=== PATIENT | male | born 1935 | race Caucasian/White ===

== ENCOUNTER → 2017-01-25 | Outpatient (REF) | payer MEDICARE ==
[~2017-01-25] MED LIST: /LINE60TA OR; /ONDA4TA OR; /PANT40TA OR; /ROPI1TA PO; /TAMS4CA PO; /WARF5TA OR; ACET500C; ACET65TA PR; ASPI81TA45 OR; ATEN25TA OR; BABY81CH OR; BIMA01SOL OU; BISA10SU2 RE; BISA5TA OR; CEPACOL PO; CIPRO PO; COLA100C2 OR; COUMADIN; FISH1000 OR; FLAG500T PO; FLEEENE4 PR; FLEXERIL OR; FURO40TA2 OR; HYDROCODONE; IMDU30TA PO; KLON0.5T OR; KLON1TAB OR; KLOR20TA PO; LASI40TA OR; LIPI10TA OR; LIPI1TAB2 OR; LISI10TA4 OR; MILKSUS OR; MIRAPEX PO; MULTIVIT PO; NEUR300C OR; NITR4TASL SL; OMEP20CA3 PO; PERC5TAB8 OR; PERC7.5T8 OR; PREG100CA OR; PRIN5TAB OR; PROS5TAB OR; PROSCAR OR; PROV100T2 PO; QUESTRAN PO; SENN8.6T5 OR; SENO8.6T10 PO; SPIR25TA2 OR; SPIR25TA2 PO; TOPR25TA OR; TRAM50TA2 OR; TYLE325T5 PO; ULTR50TA PO; VICO5TAB OR; VOLT1GEL EX; ZOCO5TAB PO; [UNRECOGNIZED DRUG - CODE] PO; [UNRECOGNIZED DRUG - OTHER] OP; [UNRECOGNIZED DRUG - OTHER] OU; [UNRECOGNIZED DRUG - OTHER] OU; fish oil PO; mirapex OR; mirapex PO; mucinex PO
[2017-01-25 17:10] LABS: ALBUMIN 3.7 GM/DL (3.2-5.2); ALKALINE PHOSPHATASE 88 U/L (45-117); ALT/SGPT 22 U/L (12-78); ANION GAP 6 MEQ/L (8-16); AST/SGOT 19 U/L (15-37); BILIRUBIN,TOTAL 0.7 MG/DL (0.2-1.0); BLOOD UREA NITROGEN 18 MG/DL (7-18); CALCIUM LEVEL 9.1 MG/DL (8.8-10.2); CARBON DIOXIDE LEVEL 30 MEQ/L (21-32); CHLORIDE LEVEL 102 MEQ/L (98-107); CHOLESTEROL LEVEL 131 MG/DL (<200); CREATININE FOR GFR 1.14 MG/DL (0.70-1.30); GLOMERULAR FILTRATION RATE > 60.0 (>35); GLUCOSE, FASTING 83 MG/DL (83-110); POTASSIUM SERUM 4.7 MEQ/L (3.5-5.1); SODIUM LEVEL 138 MEQ/L (136-145); TOTAL PROTEIN 7.4 GM/DL (6.4-8.2); TRIGLYCERIDES LEVEL 157 MG/DL (<150)
[2017-01-25 18:02] LABS: MEAN CORPUSCULAR HEMOGLOBIN 32.7 pg (27.0-33.0); MEAN CORPUSCULAR HGB CONC 33.9 g/dl (32.0-36.5); MEAN CORPUSCULAR VOLUME 96.6 fl (80.0-96.0); RED CELL DISTRIBUTION WIDTH 13.5 % (11.5-14.5); WHITE BLOOD COUNT 6.8 K/mm3 (4.0-10.0)
== END ==
LOC: M SFHCPLAZ 14:13
PROVIDERS: ATTEND Nurse Practitioner Adult Health
DX: I48.91 Unspecified atrial fibrillation (principal); E78.00 Pure hypercholesterolemia, unspecified
CPT/HCPCS: 36415; 80053; 80061; 85027; G0463

== ENCOUNTER 2017-03-01 17:49 | Emergency (ER) | payer MEDICARE ==
[2017-03-01] MEDS ORDERED: OMEP20CA3 (18:01)
[2017-03-01] MEDS ORDERED: TAMSULOSIN (18:01)
[2017-03-01] MEDS ORDERED: FURO40TA2 (18:01)
[2017-03-01] MEDS ORDERED: TRAM50TA2 (18:01)
[2017-03-01] MEDS ORDERED: CLON0.5T (18:01)
[2017-03-01] MEDS ORDERED: SPIR25TA2 (18:01)
[2017-03-01] MEDS ORDERED: GABA-279 (18:01)
[2017-03-01] MEDS ORDERED: ATOR40TA (18:01)
[2017-03-01] MEDS ORDERED: FINA5TAB2 (18:01)
[2017-03-01] MEDS ORDERED: ISOS30TA4 (18:01)
--- NOTE | 2017-03-01 18:34 | REP ---
Clinical: Altered mental status. Comparison: 08/01/2013. Findings: Age-related atrophy and microvascular ischemic changes along with periventricular leukomalacia is appreciated. There is evidence for encephalomalacia involving significant portions of the right cerebral hemisphere similar to prior examination and compatible with old infarction. No acute intracranial hemorrhage or mass/mass effect appreciated. No extra-axial fluid collections are identified. No evidence for hydrocephalus. Calvarium is intact. Evidence of prior right frontal craniotomy noted. Sinuses and mastoid air cells are clear. Impression: 1. Significant right cerebral encephalomalacia consistent with prior infarction and associated prior craniotomy. 2. Age-related atrophy and microvascular ischemic changes with periventricular leukomalacia. 3. No mass/mass effect, or intracranial hemorrhage. Signed by Jose Ferrara MD 03/01/2017 06:25 P
[2017-03-01 18:45] LABS: BASO % 0.4 % (0.0-1.0); EOS # 0.2 K/mm3 (0.0-0.50); EOS % 2.8 % (0.0-3.0); LARGE UNSTAINED CELL # 0.1 K/mm3 (0.0-0.4); LARGE UNSTAINED CELL % 1.4 % (0.0-4.0); LYMPH # 1.1 K/mm3 (1.5-4.5); LYMPH % 15.2 % (24.0-44.0); MEAN CORPUSCULAR HEMOGLOBIN 33.7 pg (27.0-33.0); MEAN CORPUSCULAR VOLUME 98.9 fl (80.0-96.0); MONO # 0.3 K/mm3 (0.0-0.8); NEUTROPHILS # 5.4 K/mm3 (1.8-7.7); NEUTROPHILS % 76.1 % (36.0-66.0); PLATELET COUNT, AUTOMATED 209 k/mm3 (150-450); RED CELL DISTRIBUTION WIDTH 13.2 % (11.5-14.5)
--- NOTE | 2017-03-01 18:55 | REP ---
Clinical: Cerebrovascular accident . Comparison: 02/15/2014 . Findings: The mediastinum and cardiac silhouette are stable and there is evidence for prior sternotomy and aortic valve replacement. The lung san are clear without acute consolidation, effusion, or pneumothorax. Skeletal structures are intact. Impression: No acute cardiopulmonary process. Signed by Jose Ferrara MD 03/01/2017 06:47 P
[2017-03-01 19:04] LABS: INR 1.1
[2017-03-01 19:10] LABS: ANION GAP 9 MEQ/L (8-16); BLOOD UREA NITROGEN 19 MG/DL (7-18); CALCIUM LEVEL 8.8 MG/DL (8.8-10.2); CARBON DIOXIDE LEVEL 27 MEQ/L (21-32); CHLORIDE LEVEL 102 MEQ/L (98-107); CREATININE FOR GFR 1.09 MG/DL (0.70-1.30); GLOMERULAR FILTRATION RATE > 60.0 (>35); GLUCOSE, FASTING 86 MG/DL (83-110); POTASSIUM SERUM 4.2 MEQ/L (3.5-5.1); SODIUM LEVEL 138 MEQ/L (136-145)
[2017-03-02 00:02] VITALS: BP 120/65
--- NOTE | 2017-03-02 19:13 | ECGEPIP ---
Stationary ECG Study [facility] - ED Test Date: 2017-03-01 Pat Name: SHIVA PHAN Department: Room: - Gender: M Statistical Typist: ETHAN : 1935 Requested By: HILDA Philip Order Number: [id number] Reading MD: Jaya Baptiste Measurements Intervals [place] Rate: 77 P: [place]: 0 QRS: -68 QRSD: 108 T: 30 QT: 410 QTc: 465 Interpretive Statements SINUS RHYTHM WITH 1ST DEGREE AV BLOCK LAD PRWP SIMILAR TO 02/17/14 Electronically Signed On 03-02-2017 19:13:13 EDT by Jaya Baptiste
== END 2017-03-02 00:12 | disposition home or self-care (01) ==
LOC: M ED 18:36
DX: R53.1 Weakness (principal); Z86.73 Personal history of transient ischemic attack (TIA), and cerebral infarction without residual deficits; I11.0 Hypertensive heart disease with heart failure; E78.5 Hyperlipidemia, unspecified; K21.9 Gastro-esophageal reflux disease without esophagitis; G89.29 Other chronic pain; G47.00 Insomnia, unspecified; G25.81 Restless legs syndrome; Z87.891 Personal history of nicotine dependence; Z88.8 Allergy status to other drugs, medicaments and biological substances; Z95.2 Presence of prosthetic heart valve

== ENCOUNTER → 2017-07-31 | Outpatient (REF) | payer MEDICARE ==
[~2017-07-31] MED LIST changes: +ATOR40TA75; +CLON0.5T; +FINA5TAB2; +FURO40TA2; +GABA-279; +ISOS30TA4; +OMEP20CA3; +SPIR25TA2; +TAMSULOSIN; +TRAM50TA2; -ULTR50TA PO; +ULTR50TA8 PO
[2017-07-31 13:04] LABS: MEAN CORPUSCULAR HEMOGLOBIN 32.4 pg (27.0-33.0); MEAN CORPUSCULAR HGB CONC 33.3 g/dl (32.0-36.5); MEAN CORPUSCULAR VOLUME 97.6 fl (80.0-96.0); RED CELL DISTRIBUTION WIDTH 13.8 % (11.5-14.5); WHITE BLOOD COUNT 8.7 10^3/uL (4.0-10.0)
[2017-07-31 13:17] LABS: ALBUMIN 3.8 GM/DL (3.2-5.2); ALBUMIN/GLOBULIN RATIO 1.06 (1.00-1.93); ALKALINE PHOSPHATASE 85 U/L (45-117); ALT/SGPT 16 U/L (12-78); ANION GAP 6 MEQ/L (8-16); AST/SGOT 14 U/L (15-37); BILIRUBIN,TOTAL 1.1 MG/DL (0.2-1.0); BLOOD UREA NITROGEN 20 MG/DL (7-18); CALCIUM LEVEL 8.7 MG/DL (8.8-10.2); CARBON DIOXIDE LEVEL 30 MEQ/L (21-32); CHLORIDE LEVEL 99 MEQ/L (98-107); CHOLESTEROL LEVEL 108 MG/DL (<200); CREATININE FOR GFR 1.17 MG/DL (0.70-1.30); GLOMERULAR FILTRATION RATE > 60.0 (>35); GLUCOSE, FASTING 97 MG/DL (83-110); POTASSIUM SERUM 4.2 MEQ/L (3.5-5.1); SODIUM LEVEL 135 MEQ/L (136-145); TOTAL PROTEIN 7.4 GM/DL (6.4-8.2); TRIGLYCERIDES LEVEL 101 MG/DL (<150)
== END ==
LOC: M SFHCPLAZ 10:47
PROVIDERS: ATTEND Nurse Practitioner Adult Health
DX: Z00.00 Encounter for general adult medical examination without abnormal findings (principal); E78.2 Mixed hyperlipidemia

== ENCOUNTER → 2017-08-04 | Outpatient (CLI) | payer MEDICARE ==
--- NOTE | 2017-08-04 11:34 | REP ---
ULTRASOUND ABDOMINAL AORTA: Real-time sonographic evaluation of the abdominal aorta performed. Maximum AP diameter of the abdominal aorta proximally is 2.5 cm, at the level of the renal artery is 3.9 cm, mid aspect 3.1 cm and distally 3.0 cm. Right common iliac artery measures 9 x 11 mm and left 11 x 8 mm. There is not a significant change when compared with the prior study of 07/30/2015. 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 Signed by Lukas Caraballo MD 08/07/2017 09:48 A
== END ==
LOC: M RAD 09:52
PROVIDERS: ATTEND Nurse Practitioner Adult Health
DX: I71.4 Abdominal aortic aneurysm, without rupture (principal)

== ENCOUNTER → 2018-07-16 | Outpatient (REF) | payer MEDICARE ==
[2018-07-16 18:05] LABS: HEMATOCRIT 41.7 % (42.0-52.0); HEMOGLOBIN 13.9 g/dl (13.5-17.5); MEAN CORPUSCULAR HEMOGLOBIN 32.9 pg (27.0-33.0); MEAN CORPUSCULAR HGB CONC 33.3 g/dl (32.0-36.5); MEAN CORPUSCULAR VOLUME 98.8 fl (80.0-96.0); PLATELET COUNT, AUTOMATED 201 10^3/uL (150-450); RED BLOOD COUNT 4.22 10^6/uL (4.30-6.10); RED CELL DISTRIBUTION WIDTH 14.2 % (11.5-14.5); WHITE BLOOD COUNT 7.3 10^3/uL (4.0-10.0)
[2018-07-16 18:26] LABS: ALBUMIN 3.9 GM/DL (3.2-5.2); ALBUMIN/GLOBULIN RATIO 1.05 (1.00-1.93); ALKALINE PHOSPHATASE 77 U/L (45-117); ALT/SGPT 16 U/L (12-78); ANION GAP 7 MEQ/L (8-16); AST/SGOT 17 U/L (7-37); BILIRUBIN,TOTAL 0.7 MG/DL (0.2-1.0); BLOOD UREA NITROGEN 16 MG/DL (7-18); CALCIUM LEVEL 8.5 MG/DL (8.8-10.2); CARBON DIOXIDE LEVEL 30 MEQ/L (21-32); CHLORIDE LEVEL 101 MEQ/L (98-107); CHOLESTEROL LEVEL 117 MG/DL (<200); CREATININE FOR GFR 1.18 MG/DL (0.70-1.30); GLOMERULAR FILTRATION RATE > 60.0 (>35); GLUCOSE, FASTING 97 MG/DL (70-100); HDL CHOLESTEROL 36 MG/DL (>40); LDL CHOLESTEROL 43 MG/DL (<100); NON-HDL-C 81 MG/DL; POTASSIUM SERUM 4.4 MEQ/L (3.5-5.1); SODIUM LEVEL 138 MEQ/L (136-145); TOTAL PROTEIN 7.6 GM/DL (6.4-8.2); TRIGLYCERIDES LEVEL 189 MG/DL (<150)
== END ==
LOC: M LABNEURO 15:04
DX: I48.91 Unspecified atrial fibrillation (principal); E78.2 Mixed hyperlipidemia; I50.32 Chronic diastolic (congestive) heart failure
CPT/HCPCS: 80053

== ENCOUNTER → 2019-03-19 | Outpatient (REF) | payer MEDICARE ==
[~2019-03-19] MED LIST changes: -/LINE60TA OR; -/ONDA4TA OR; -/PANT40TA OR; -/ROPI1TA PO; -/TAMS4CA PO; -/WARF5TA OR; -CLON0.5T; +CLON0.5T8; +COUM1TAB17 OR; +FLOM0.4C39 PO; +GABA-1171; -GABA-279; +ONDA-1 OR; +PROT1TAB2 OR; +REQU1TAB16 PO; +SPIR-10; -SPIR25TA2; +ZYVO100T OR
[2019-03-19 16:00] LABS: ALBUMIN 4.1 GM/DL (3.2-5.2); ALT/SGPT 16 U/L (12-78); BILIRUBIN,TOTAL 0.7 MG/DL (0.2-1.0); BLOOD UREA NITROGEN 16 MG/DL (7-18); CALCIUM LEVEL 9.2 MG/DL (8.8-10.2); CARBON DIOXIDE LEVEL 30 MEQ/L (21-32); CHLORIDE LEVEL 100 MEQ/L (98-107); CREATININE FOR GFR 1.19 MG/DL (0.70-1.30); GLOMERULAR FILTRATION RATE > 60.0 (>35); GLUCOSE, FASTING 94 MG/DL (70-100); SODIUM LEVEL 137 MEQ/L (136-145); TOTAL PROTEIN 7.8 GM/DL (6.4-8.2)
== END ==
LOC: M SFHCPLAZ 14:24
PROVIDERS: ATTEND Nurse Practitioner Adult Health
DX: I48.91 Unspecified atrial fibrillation (principal)
CPT/HCPCS: 36415; 80053; G0463

== ENCOUNTER 2019-05-01 10:38 | Inpatient (IN) | payer MEDICARE ==
[~2019-05-01] VITALS: Ht 200.7 cm; Wt 69.5 kg
[~2019-05-01 10:38] MED LIST changes: -ATOR40TA75; +ATOR40TA75 PO; -CLON0.5T8; +CLON0.5T8 PO; -FINA5TAB2; +FINA5TAB2 PO; -FURO40TA2; +FURO40TA2 PO; -GABA-1171; +GABA-1171 PO; -ISOS30TA4; +ISOS30TA4 PO; -OMEP20CA3; +OMEP20CA4 PO; -SPIR-10; +SPIR-10 PO
[2019-05-01 11:16] LABS: VENOUS BASE EXCESS -3.2 (-2.0-2.0); VENOUS HCO3 24.3 MEQ/L (23.0-27.0); VENOUS O2 SATURATION 76.5 % (60.0-80.0); VENOUS PARTIAL PRESSURE CO2 53.1 mmHg (38.0-50.0); VENOUS PARTIAL PRESSURE O2 44.9 mmHg (30.0-50.0); VENOUS PH 7.278 UNITS (7.330-7.430); VENOUS STANDARD HCO3 21.4 MEQ/L; VENOUS TOTAL CO2 25.9 MEQ/L (24.0-28.0)
[2019-05-01] MEDS ORDERED: TAMS1CAP17 PO (11:20)
[2019-05-01 11:21] LABS: BASO % 0.2 % (0.0-1.0); EOS % 0.3 % (0.0-3.0); HEMATOCRIT 39.4 % (42.0-52.0); HEMOGLOBIN 13.1 g/dl (13.5-17.5); LYMPH # 0.6 10^3/uL (1.5-4.5); LYMPH % 5.1 % (24.0-44.0); MEAN CORPUSCULAR HEMOGLOBIN 32.8 pg (27.0-33.0); MEAN CORPUSCULAR HGB CONC 33.2 g/dl (32.0-36.5); MEAN CORPUSCULAR VOLUME 98.7 fl (80.0-96.0); MONO # 0.3 10^3/uL (0.0-0.8); MONO % 2.8 % (0.0-5.0); NEUTROPHILS # 10.9 10^3/uL (1.8-7.7); PLATELET COUNT, AUTOMATED 172 10^3/uL (150-450); RED BLOOD COUNT 3.99 10^6/uL (4.30-6.10); WHITE BLOOD COUNT 11.9 10^3/uL (4.0-10.0)
[2019-05-01] MEDS ORDERED: ECOT81TA5 PO (11:35)
[2019-05-01] MEDS ORDERED: ACET650T15 PO (11:35)
[2019-05-01] MEDS ORDERED: GABA-1171 PO (11:35)
[2019-05-01 11:53] LABS: ALBUMIN 3.8 GM/DL (3.2-5.2); BILIRUBIN,DIRECT 0.3 MG/DL (0.0-0.2); BILIRUBIN,TOTAL 0.7 MG/DL (0.2-1.0); CALCIUM LEVEL 8.7 MG/DL (8.8-10.2); CK-MB VALUE MASS 2.7 NG/ML (<3.6); CREATININE FOR GFR 1.25 MG/DL (0.70-1.30); GLOMERULAR FILTRATION RATE 58.4 (>35); MB/CK RELATIVE INDEX 2.55 (< OR =4); POTASSIUM SERUM 3.8 MEQ/L (3.5-5.1); THYROID STIMULATING HORMONE 2.7 uIU/ML (0.358-3.740); THYROXINE (T4) 6.9 UG/DL (4.5-12.0); TOTAL PROTEIN 7.4 GM/DL (6.4-8.2); TROPONIN I 0.15 NG/ML (< 0.10)
[2019-05-01] MEDS ORDERED: ZOSYN 3.375 GM VIAL (J2543) As Ordered ONE (12:29)
--- NOTE | 2019-05-01 13:02 | REP ---
CHEST, PORTABLE: Two AP portable views of the chest are performed. There is slight cardiomegaly. There is diffuse right lung infiltrate, more so in the right lung base. There is mild left base interstitial infiltrate. There is mild calcification of the thoracic aorta. There is a prosthetic heart valve. Multiple sternal wires present. Electronically Signed by Lukas Caraballo MD 05/04/2019 06:26 P
[2019-05-01] MEDS: PIPERACILLIN/TAZOBACTAM SOD 3.375 GM in D5W MINI-BAG PLUS 50 ML IV SCH ×2 (13:55→20:39)
[2019-05-01] MEDS ORDERED: ACETAMINOPHEN 325 MG TAB PO ONE (14:15)
--- NOTE | 2019-05-01 15:12 | HPEPDOC ---
[facility] Medical History & Physical Date of Admission May 01, 2019 Date of Service: May 01, 2019 History and Physical CHIEF COMPLAINT: weakness, deconditioning HISTORY OF PRESENT ILLNESS: Pt is 83 y/o M with PMHx listed as below was brought to ED by her daughter due to cough, shortness of breath, malaise and weakness. Upon my encounter pt is awake and alert his memory and speech are coherent however he appears severely fatigued and weak. Daughter is at bedside, she states that her father lives by himself about 15 miles away from her. Every other day pt daughter and daughter in law visit him and help him with shopping and cooking. Pt's is elderly and lives in assisted living facility. He has been coughing for the past few days with sputum production. Denies any fever or chills. He states he feels very weak and tired. Denies any chest pain, palpitations or syncope. Denies change in urination or BM. Denies headache, visual changes or abdominal pain. ED Course: Pt was initially hypoxic at 88-90 which responded to 2lit NC. He was tachypneic however able to speak in full sentences. His inspiration and expiration sounded with copious amount of secretions. SBP in range of 110-120. CXR reveals bilat infiltrates. Pt received one dose of Zosyn and bronchodilator treatments. Trop mildly elevated. ProBNP 2000, WBC 11.9 with left shift. U/A negative. Lactate 2.3. PAST MEDICAL HISTORY: 1-Atrial Fibrillation/Flutter not on AC due to ICH 2-Hx of Intracranial Hemorrhage 3-HTN 4-HLD 5-Hx of C. 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 REVIEW OF SYSTEMS: 10 points completed negative except mentioned in HPI HOME MEDICATIONS: Please see below. PHYSICAL EXAMINATION: VITAL SIGNS: GENERAL APPEARANCE: Pt is frail elderly gentleman appears severely fatigued and weak however memory and speech coherent HEENT: EOMI JACKSON neck supple no JVD no LAP mucus membranes moist CARDIOVASCULAR: S1 S2 regular rate and rhythm LUNGS: bilat good air entry extensive rales bilateral ABDOMEN: soft not tender not distended MUSCULOSKELETAL: no joint deformity EXTREMITIES: no edema no cyanosis no tenderness NEUROLOGICAL: motor sensory grossly intact PSYCHIATRIC: mood affect appropriate LABORATORY DATA: See below. CHEST, PORTABLE: Two AP portable views of the chest are performed. There is slight cardiomegaly. There is diffuse right lung infiltrate, more so in the right lung base. There is mild left base interstitial infiltrate. There is mild calcification of the thoracic aorta. There is a prosthetic heart valve. Multiple sternal wires present. MICROBIOLOGY: Please see below. A/P 1-Acute hypoxic respiratory failure sec to bilat pneumonia O2 via NC 2lit maintain O2 sats >90 Can give venti mask and nonrebreather in case requiring more oxygenation support ABG 2-Acute bronchopneumonia bilateral likely aspiration pneumonia need to cover oral cavity anaerobes Broad spectrum antbiotics Zosyn, Vancomycin Hx of MRSA pneumonia Lactate 2.3 monitor clinical response, WBC, lactate blood cultures sent sputum cultures sent 3-Elevated Troponin in view of prior CAD with CABG and acute illness likely demand ischemia cont monitor closely 4-Aspiration precautions 5-Elevate head of bed Cont home meds for chronic conditions. DVT prophylaxis mechanical PT/OT once clinically optimized SW/CM possible placement Disposition: expect complicated course of stay due to extensive past medical history and aspiration pneumonia in elderly patient. Vital Signs Vital Signs Date Time Temp Pulse Resp B/P (MAP) Pulse Ox O2 Delivery O2 Flow Rate FiO2 05/01/19 12:45 74 22 120/56 (77) 88 Nasal Cannula 4.0 05/01/19 10:57 96.3 Laboratory Data Labs 24H Laboratory Tests 2 05/01/19 11:03: Immature Granulocyte % (Auto) 0.6, White Blood Count 11.9H, Red Blood Count 3.99L, Hemoglobin 13.1L, Hematocrit 39.4L, Mean Corpuscular Volume 98.7H, Mean Corpuscular Hemoglobin 32.8, Mean Corpuscular Hemoglobin Concent 33.2, Red Cell Distribution Width 13.4, Platelet Count 172, Neutrophils (%) (Auto) 91.0H, Lymphocytes (%) (Auto) 5.1L, Monocytes (%) (Auto) 2.8, Eosinophils (%) (Auto) 0.3, Basophils (%) (Auto) 0.2, Neutrophils # (Auto) 10.9H, Lymphocytes # (Auto) 0.6L, Monocytes # (Auto) 0.3, Eosinophils # (Auto) 0.0, Basophils # (Auto) 0.0, Nucleated Red Blood Cells % (auto) 0.0, Anion Gap 7L, Glomerular Filtration Rate 58.4, Lactic Acid Level 2.3*H, Calcium Level 8.7L, Aspartate Amino Transf (AST/SGOT) 15, Alanine Aminotransferase (ALT/SGPT) 18, Alkaline Phosphatase 73, Total Bilirubin 0.7, Direct Bilirubin 0.3H, Total Creatine Kinase 106, Creatine Kinase MB 2.7, Creatine Kinase MB Relative Index 2.55, Troponin I 0.15H, NW-Hcq-Q-Type Natriuretic Peptide 2898H, Total Protein 7.4, Albumin 3.8, Albumin/Globulin Ratio 1.06, Thyroid Stimulating Hormone (TSH) 2.700, Thyroxine (T4) 6.9 05/01/19 11:06: Blood Gas Bicarbonate Standard 21.4, Venous Blood pH 7.278L, Venous Blood Partial Pressure CO2 53.1H, Venous Blood Partial Pressure O2 44.9, Venous Blood Total Carbon Dioxide 25.9, Venous Blood HCO3 24.3, Venous Blood Oxygen Sat uration 76.5, Venous Blood Base Excess -3.2L CBC/BMP Laboratory Tests 05/01/19 11:03 Red Blood Count 3.99 L, Mean Corpuscular Volume 98.7 H, Mean Corpuscular Hemoglobin 32.8, Mean Corpuscular Hemoglobin Concent 33.2, Red Cell Distribution Width 13.4, Neutrophils (%) (Auto) 91.0 H, Lymphocytes (%) (Auto) 5.1 L, Monocytes (%) (Auto) 2.8, Eosinophils (%) (Auto) 0.3, Basophils (%) (Auto) 0.2, Neutrophils # (Auto) 10.9 H, Lymphocytes # (Auto) 0.6 L, Monocytes # (Auto) 0.3, Eosinophils # (Auto) 0.0, Basophils # (Auto) 0.0 Microbiology Microbiology 05/01/19 Blood Culture, Received Pending 05/01/19 Blood Culture, Received Pending Home Medications Scheduled Aspirin (Ecotrin) 81 Mg Tablet.dr, 81 MG PO DAILY Atorvastatin Calcium (Atorvastatin Calcium) 40 Mg Tab, 40 MG PO QHS Finasteride (Finasteride) 5 Mg Tab, 5 MG PO DAILY Furosemide (Furosemide) 40 Mg Tab, 40 MG PO DAILY Gabapentin (Gabapentin) 100 Mg Cap, 100 MG PO DAILY Gabapentin (Gabapentin) 100 Mg Capsule, 200 MG PO QHS Isosorbide Mononitrate (Isosorbide Mononitrate ER) 30 Mg Tab, 30 MG PO DAILY Omeprazole (Omeprazole) 20 Mg Cap, 20 MG PO DAILY Spironolactone (Spironolactone) 25 Mg Tab, 25 MG PO DAILY Tamsulosin Hcl (Tamsulosin HCl) 0.4 Mg Capsule, 0.4 MG PO QHS Scheduled PRN Acetaminophen (Acetaminophen ER) 650 Mg Tablet.er, 650 MG PO Q4H PRN for PAIN Clonazepam (Clonazepam) 0.5 Mg Tab, 0.5 MG PO BID PRN for ANXIETY Allergies Coded Allergies: lovastatin (Verified Allergy, Intermediate, hives, 05/01/19) A-FIB/CHADSVASC A-FIB History Current/History of A-Fib/PAF?: Yes Current PO Anticoag Therapy: No (Hx of ICH SAH) RIANA MARTINEZ MD May 01, 2019 15:12
[2019-05-01] MEDS ORDERED: FUROSEMIDE 100 MG/10 ML VIAL (J1940) IV ONE (16:00)
[2019-05-01] MEDS: ASPIRIN 81 MG ENTERIC TAB PO SCH (16:15)
[2019-05-01] MEDS ORDERED: VANCOMYCIN HCL 1,000 MG, VIAL MATE ADAPTER 1 EACH in D5W 250 ML IV ONE ×2 (17:00→21:00)
[2019-05-01 17:56] LABS: APPEARANCE, URINE CLEAR (CLEAR); BACTERIA, URINE AUTO NEGATIVE (NEGATIVE); BILIRUBIN, URINE AUTO NEGATIVE (NEGATIVE); BLOOD, URINE BLOOD NEGATIVE (NEGATIVE); COLOR, URINE YELLOW (YELLOW); GLUCOSE, URINE (UA) AUTO NEGATIVE (NEGATIVE); KETONE, URINE AUTO NEGATIVE (NEGATIVE); LEUKOCYTE ESTERASE, URINE AUTO NEGATIVE (NEGATIVE); MUCUS, URINE SMALL (NEGATIVE); NITRITE, URINE AUTO NEGATIVE (NEGATIVE); PROTEIN, URINE AUTO NEGATIVE (NEGATIVE); RBC, URINE AUTO 3 /HPF (0-3); SPECIFIC GRAVITY URINE AUTO 1.014 (1.002-1.035); SQUAMOUS EPITHELIAL CELL UR AU 0 /HPF (0-6); UROBILINOGEN, URINE AUTO 0.2 mg/dL (0.0-2.0); WBC, URINE AUTO 3 /HPF (0-3)
--- NOTE | 2019-05-01 19:17 | ECGEPIP ---
[facility] - ED Test Date: 2019-05-01 Pat Name: SHIVA PHAN Department: Room: - Gender: Male Property Controller: jbrandin : 1935 Requested By: Jayleen Gutierrez Order Number: [id number] Reading MD: Jayleen Gutierrez Measurements Intervals [place] Rate: 83 P: AR: -1 QRS: QRSD: 111 T: 78 QT: 364 QTc: 428 Interpretive Statements SINUS FIRST DEGREE AV BLOCK POSSIBLE ANTERIOR MYOCARDIAL INFARCTION, PROBABLY OLD INFERIOR MYOCARDIAL INFARCTION, PROBABLY OLD INCREASED ECTOPY 03/01/17 Electronically Signed on 05-01-2019 19:16:42 EDT by Jayleen Gutierrez
--- NOTE | 2019-05-01 19:57 | PHACANCOPD ---
PHARMACY VANCOMYCIN DOSING Pt Demographics Demographics Patient Age:83 , Weight:72.730 , Gender: male Adjusted Body Weight Date: 05/01/19, Adjusted Body Weight: Kg Events Past 24 Hours Events Past 24 Hours: YES: Elevation in WBC, Pending Diagnostics; NO: Dialysis, Diuretic Therapy, Change in CrCl, Fever, Pending Procedures, Other Vancomycin Vancomycin Target Ranges: 15-20 mcg/ml Vancomycin Load Y/N: Yes Load Dose Date Time Vancomycin Load Dose: 1500MG Date: 05/01/19 Time: 2100 Vancomycin Dose Date: 05/01/19. Current Vancomycin Dose: Intermittent Dosing?: No Labs Labs Item Value Date Time White Blood Count 11.9 10^3/uL H 05/01/19 1103 Lactic Acid Level 2.3 MMOL/L *H 05/01/19 1103 Troponin I 0.20 NG/ML H # 05/01/19 1618 Troponin I 0.15 NG/ML H 05/01/19 1103 AZ-Fim-P-Type Natriuretic Peptide 2898 PG/ML H 05/01/19 1103 Vital Signs Label Value Date Time Patient Temperature 96.3 degrees F 05/01/19 1847 Temperature Source Oral 05/01/19 1847 Micro Microbiology 05/01/19 Blood Culture, Received Pending 05/01/19 Blood Culture, Received Pending 05/01/19 Blood Culture, Received Pending 05/01/19 Gram Stain, Received Pending 05/01/19 Sputum Culture, Received Pending Creatinine Clearance Date:05/01/19. Creatinine Clearance: . Assessment and Plan Maintaining Current Dose?: Yes Reason for dose change: No Dose Change Pharmacist Note Pharmacist Note Date: 05/01/19. Pharmacist note: Pt. is an 83 year old male who was brought to the ED by EMS after he woke with N/V this am and chest congestion. Pt's O2 stats were low upon arrival. The patient was started on Vanco and Zosyn for potential pneumonia. Infiltrates were noted on chest xray. This has a hx of MRSA pneumonia. Last Vanco consult was from 2011. I have scheduled the patient to receive a loading dose of 1500mg followed by 1G Q18H. I have also ordered a stat MRSA PCR which is still pending the nurse to acquire. We will continue to monitor and adjust dose as needed. CASE SR PHARMACY May 01, 2019 19:57
[2019-05-01 20:00] VITALS: BP 141/64
[2019-05-01] MEDS: OMEPRAZOLE 20 MG CAP PO SCH (20:10)
[2019-05-01] MEDS: ISOSORBIDE MON. (IMDUR) 30 MG XR TAB PO SCH (20:10)
[2019-05-01] MEDS: FINASTERIDE 5 MG TAB PO SCH (20:10)
[2019-05-01 21:00] VITALS: BP 108/59
[2019-05-01] MEDS: GABAPENTIN 100 MG CAP PO SCH (21:00)
[2019-05-01] MEDS: ATORVASTATIN 20 MG TAB PO SCH (21:00)
[2019-05-01] MEDS: TAMSULOSIN 0.4 MG CAP PO SCH (21:00)
[2019-05-01] MEDS ORDERED: NS 1,000 ML IV SCH (21:15)
[2019-05-01] MEDS: IPRATROPIUM 0.5MG/ALBUTEROL 2.5MG INH SOL UD 3ML (DUONEB)(J7620) INH SCH (21:34)
[2019-05-01 22:00] VITALS: BP 118/59
[2019-05-01] MEDS ORDERED: VANCOMYCIN HCL 500 MG in D5W MINI-BAG PLUS 100 ML IV ONE (22:00)
[2019-05-01 23:00] VITALS: BP 125/61
[2019-05-02] VITALS (10 sets, daily range): BP systolic 99–133; BP diastolic 51–87
[2019-05-02] MEDS: IPRATROPIUM 0.5MG/ALBUTEROL 2.5MG INH SOL UD 3ML (DUONEB)(J7620) INH SCH ×6 (00:11→20:48)
[2019-05-02] MEDS: PIPERACILLIN/TAZOBACTAM SOD 3.375 GM in D5W MINI-BAG PLUS 50 ML IV SCH ×4 (01:32→18:10)
[2019-05-02 04:03] LABS: HEMATOCRIT 39.8 % (42.0-52.0); HEMOGLOBIN 13.4 g/dl (13.5-17.5); MEAN CORPUSCULAR HEMOGLOBIN 32.4 pg (27.0-33.0); MEAN CORPUSCULAR HGB CONC 33.7 g/dl (32.0-36.5); MEAN CORPUSCULAR VOLUME 96.4 fl (80.0-96.0); PLATELET COUNT, AUTOMATED 173 10^3/uL (150-450); RED BLOOD COUNT 4.13 10^6/uL (4.30-6.10); WHITE BLOOD COUNT 11.6 10^3/uL (4.0-10.0)
[2019-05-02 04:13] LABS: CALCIUM LEVEL 8.2 MG/DL (8.8-10.2); CREATININE FOR GFR 1.54 MG/DL (0.70-1.30); GLOMERULAR FILTRATION RATE 45.9 (>35); POTASSIUM SERUM 3.8 MEQ/L (3.5-5.1)
--- NOTE | 2019-05-02 07:05 | REP ---
CT of the chest without IV contrast: Comparison is the portable plain film study performed earlier today. There are large infiltrates in the right upper lobe, right middle lobe and right lower lobe. There are small infiltrates in the left upper lobe, lingula and left lower lobe. There are small bilateral pleural effusions. There is a 3.0 cm nodular density in the right minor fissure superiorly. This could be inspissated pleural fluid, however follow up to resolution is recommended. There are borderline enlarged mediastinal aorticopulmonic window nodes. The study is insensitive for hilar lymph node enlargement in the absence of IV contrast. The unenhanced thoracic aorta is unremarkable. Cardiac size is enlarged. There are sternotomy wires and cardiac valve replacements. The visualized upper abdominal contents are unremarkable. Impression: Large infiltrates in all lobes of the right lung. Small infiltrates in all lobes of the left lung. Small bilateral pleural effusions. Nodule like density on the right as described. Cardiomegaly, sternotomy wires and cardiac valve replacements. Electronically Signed by Lukas Shields MD 05/02/2019 06:56 A
[2019-05-02] MEDS: GABAPENTIN 100 MG CAP PO SCH ×2 (08:37→20:30)
[2019-05-02] MEDS: ASPIRIN 81 MG ENTERIC TAB PO SCH (08:37)
[2019-05-02] MEDS: ISOSORBIDE MON. (IMDUR) 30 MG XR TAB PO SCH (08:37)
[2019-05-02] MEDS: FINASTERIDE 5 MG TAB PO SCH (08:37)
[2019-05-02] MEDS: OMEPRAZOLE 20 MG CAP PO SCH (08:37)
[2019-05-02] MEDS: SPIRONOLACTONE 25 MG TAB PO SCH (08:37)
[2019-05-02] MEDS: FUROSEMIDE 40 MG TAB PO SCH (08:38)
[2019-05-02] MEDS ORDERED: FUROSEMIDE 40 MG/4 ML VIAL (J1940) IV ONE (09:00)
--- NOTE | 2019-05-02 10:35 | IPNPDOC ---
Text Note Date of Service The patient was seen on 05/02/19. NOTE Pt was seen and examined at bedside. Pt is physically in ICU however a PCU admission. He is awake and alert today. Pt appears less fatigued today. His breathing has improved. O2 sat on 2lit NC 92-95%. MRSA PCR negative. Electrolyte WNL. leukocytosis stable. Pt is able to clear his upper respiratory secretions however continues to require suctioning assistance. Afebrile. PHYSICAL EXAMINATION: VITAL SIGNS: please see below GENERAL APPEARANCE: Pt is frail elderly gentleman memory and speech coherent HEENT: EOMI JACKSON neck supple no JVD no LAP mucus membranes moist CARDIOVASCULAR: S1 S2 regular rate and rhythm LUNGS: bilat good air entry extensive rales bilateral ABDOMEN: soft not tender not distended MUSCULOSKELETAL: no joint deformity EXTREMITIES: no edema no cyanosis no tenderness NEUROLOGICAL: motor sensory grossly intact PSYCHIATRIC: mood affect appropriate Vital Signs Date Time Temp Pulse Resp B/P (MAP) Pulse Ox O2 Delivery O2 Flow Rate FiO2 05/02/19 07:39 97.3 72 20 99/56 (70) 95 6.0 05/02/19 07:30 6.0 05/02/19 04:00 4.0 05/02/19 04:00 98.2 78 24 107/51 (69) 92 4.0 05/02/19 02:00 74 22 114/53 (73) 95 4.0 05/02/19 01:00 69 22 106/53 (70) 93 4.0 05/02/19 00:00 4.0 05/02/19 00:00 99.0 70 24 113/56 (75) 96 4.0 05/01/19 23:00 74 22 125/61 (82) 95 4.0 05/01/19 22:00 68 24 118/59 (78) 95 4.0 05/01/19 21:00 68 24 108/59 (75) 95 4.0 05/01/19 20:00 4.0 05/01/19 20:00 98.7 79 24 141/64 (89) 93 4.0 05/01/19 19:44 74 26 103/51 (68) 94 05/01/19 19:15 75 99/55 (70) 92 Nasal Cannula 4.0 05/01/19 19:00 78 118/58 (78) 93 Nasal Cannula 4.0 05/01/19 18:47 96.3 05/01/19 18:45 74 108/51 (70) 92 Nasal Cannula 4.0 05/01/19 18:30 72 30 103/55 (71) 93 Nasal Cannula 4.0 05/01/19 18:16 75 30 104/58 (73) Nasal Cannula 4.0 05/01/19 18:03 83 30 122/60 (80) 90 Nasal Cannula 4.0 05/01/19 17:45 78 28 131/68 (89) 92 Nasal Cannula 4.0 05/01/19 17:31 83 28 144/73 (96) 92 Nasal Cannula 4.0 05/01/19 17:15 79 132/60 (84) 92 Nasal Cannula 4.0 05/01/19 17:05 97.6 05/01/19 17:00 75 30 133/69 (90) 94 Nasal Cannula 4.0 05/01/19 16:59 73 29 120/67 (84) 93 05/01/19 16:45 97.3 73 22 120/67 (84) 93 Nasal Cannula 4.0 05/01/19 16:30 79 22 152/69 (96) 93 Nasal Cannula 4.0 05/01/19 16:15 76 22 141/63 (89) 91 Nasal Cannula 4.0 05/01/19 16:00 83 22 160/67 (98) 91 Nasal Cannula 4.0 05/01/19 15:45 79 22 147/66 (93) 90 Nasal Cannula 4.0 05/01/19 15:30 79 22 124/60 (81) 92 Nasal Cannula 4.0 05/01/19 15:15 77 20 127/59 (81) 92 Nasal Cannula 4.0 05/01/19 15:00 75 20 130/60 (83) 91 Nasal Cannula 4.0 05/01/19 14:45 80 20 119/56 (77) 90 Nasal Cannula 4.0 05/01/19 14:30 80 20 143/65 (91) 89 Nasal Cannula 4.0 05/01/19 14:00 81 20 149/73 (98) 86 Nasal Cannula 4.0 05/01/19 13:45 82 20 139/66 (90) 87 Nasal Cannula 4.0 05/01/19 13:30 82 20 138/62 (87) 89 Nasal Cannula 4.0 05/01/19 13:15 78 22 128/64 (85) 87 Nasal Cannula 4.0 05/01/19 13:00 81 22 115/55 (75) 89 Nasal Cannula 4.0 05/01/19 12:45 74 22 120/56 (77) 88 Nasal Cannula 4.0 05/01/19 12:30 72 22 120/59 (79) 88 Nasal Cannula 4.0 05/01/19 12:16 72 22 116/58 (77) 88 Nasal Cannula 4.0 05/01/19 12:00 76 22 113/81 (92) 85 Nasal Cannula 4.0 05/01/19 11:45 75 20 112/61 (78) 87 Nasal Cannula 4.0 05/01/19 11:30 Nasal Cannula 4.0 93 05/01/19 11:30 75 20 102/64 (77) 87 Nasal Cannula 4.0 05/01/19 11:16 78 20 123/56 (78) 88 Nasal Cannula 4.0 05/01/19 11:02 79 20 121/61 (81) 88 Nasal Cannula 4.0 05/01/19 10:57 96.3 86 36 131/62 (85) 86 Nasal Cannula 5.0 05/01/19 10:44 85 22 86 Nasal Cannula 5.0 Intake & Output 05/02/19 06:00 Intake Total 920 ml Output Total 725 ml Balance 195 ml Laboratory Tests 05/01/19 11:03: White Blood Count 11.9H, Red Blood Count 3.99L, Hemoglobin 13.1L, Hematocrit 39.4L, Mean Corpuscular Volume 98.7H, Mean Corpuscular Hemoglobin 32.8, Mean Corpuscular Hemoglobin Concent 33.2, Red Cell Distribution Width 13.4, Platelet Count 172, Neutrophils (%) (Auto) 91.0H, Lymphocytes (%) (Auto) 5.1L, Monocytes (%) (Auto) 2.8, Eosinophils (%) (Auto) 0.3, Basophils (%) (Auto) 0.2, Neutrophils # (Auto) 10.9H, Lymphocytes # (Auto) 0.6L, Monocytes # (Auto) 0.3, Eosinophils # (Auto) 0.0, Basophils # (Auto) 0.0, Immature Granulocyte % (Auto) 0.6, Nucleated Red Blood Cells % (auto) 0.0, Sodium Level 139, Potassium Level 3.8, Chloride Level 103, Carbon Dioxide Level 29, Anion Gap 7L, Blood Urea Nitrogen 21H, Creatinine 1.25, Glomerular Filtration Rate 58.4, Fasting Glucose 126H, Lactic Acid Level 2.3*H, Calcium Level 8.7L, Aspartate Amino Transf (AST/SGOT) 15, Alanine Aminotransferase (ALT/SGPT) 18, Alkaline Phosphatase 73, Total Bilirubin 0.7, Direct Bilirubin 0.3H, Total Creatine Kinase 106, Creatine Kinase MB 2.7, Creatine Kinase MB Relative Index 2.55, Troponin I 0.15H, QB-Nkb-M-Type Natriuretic Peptide 2898H, Total Protein 7.4, Albumin 3.8, Albumin/Globulin Ratio 1.06, Thyroid Stimulating Hormone (TSH) 2.700, Thyroxine (T4) 6.9 05/01/19 11:06: Blood Gas Bicarbonate Standard 21.4, Venous Blood pH 7.278L, Venous Blood Partial Pressure CO2 53.1H, Venous Blood Partial Pressure O2 44.9, Venous Blood Total Carbon Dioxide 25.9, Venous Blood HCO3 24.3, Venous Blood Oxygen Saturation 76.5, Venous Blood Base Excess -3.2L 05/01/19 15:36: Lactic Acid Followup at 4 Hours 2.0 05/01/19 16:18: Troponin I 0.20#H 05/01/19 17:40: Urine Appearance CLEAR, Urine Color YELLOW, Urine pH 6.0, Urine Specific [place] 1.014, Urine Protein NEGATIVE, Urine Glucose (UA) NEGATIVE, Urine Ketones NEGATIVE, Urine Urobilinogen 0.2, Urine Bilirubin NEGATIVE, Urine Leukocyte Esterase NEGATIVE, Urine Blood NEGATIVE, Urine Nitrite NEGATIVE, Urine WBC (Auto) 3, Urine RBC (Auto) 3, Urine Hyaline Casts (Auto) 0, Urine Bacteria (Auto) NEGATIVE, Urine Squamous Epithelial Cells 0, Urine Mucus (Auto) SMALL, Urine Sperm (Auto) , Body Fluid Culture (LAB) [Pending], Urine Legionella Antigen [Pending], Streptococcus pneumoniae Ag Source [Pending], Ur Streptococcus pneumoniae Antigen [Pending], Organism Identification (LAB) [Pending] 05/02/19 03:38: White Blood Count 11.6H, Red Blood Count 4.13L, Hemoglobin 13.4L, Hematocrit 3 9.8L, Mean Corpuscular Volume 96.4H, Mean Corpuscular Hemoglobin 32.4, Mean Corpuscular Hemoglobin Concent 33.7, Red Cell Distribution Width 13.4, Platelet Count 173, Nucleated Red Blood Cells % (auto) 0.0, Blood Urea Nitrogen 27H, Creatinine 1.54H, Sodium Level 137, Potassium Level 3.8, Chloride Level 102, Carbon Dioxide Level 26, Calcium Level 8.2L, Anion Gap 9, Glomerular Filtration Rate 45.9, Fasting Glucose 128H 05/02/19 07:52: Methicillin-Resist S.aureus DNA PCR NOT DETECTED Current Medications Medications (Trade) Dose Ordered Sig/Juan Ramon Route PRN Reason Start Time Stop Time Status Last Admin Dose Admin Albuterol/ Ipratropium (Duoneb (Ipr 0.5mg/Alb 2.5mg)) 3 ml RQ4H INH 05/01/19 16:00 05/02/19 07:58 3 ML Aspirin (Ecotrin) 81 mg DAILY PO 05/01/19 09:00 05/01/19 16:15 81 MG Piperacillin Sod/ Tazobactam Sod 3.375 gm/Dextrose 50 ml @ 50 mls/hr Q6H IV 05/01/19 13:00 05/02/19 06:17 50 MLS/HR Sodium Chloride 1,000 ml @ 50 mls/hr Q20H IV 05/01/19 21:15 05/01/19 21:46 50 MLS/HR A/P 1-Acute hypoxic respiratory failure, improved sec to bilat pneumonia O2 via NC 2lit maintain O2 sats >90 Can give venti mask and nonrebreather in case requiring more oxygenation support ABG 2-Acute bronchopneumonia bilateral likely aspiration pneumonia need to cover oral cavity anaerobes Broad spectrum antbiotics Zosyn, Vancomycin initially , now MRSA PCR negative Vanc id dc'd monitor clinical response, WBC, lactate blood cultures sent sputum cultures gram positive cocci in pairs as well as gram negative rods Currently appropriate antibiotic coverage Aspiration precautions Elevate head of bed Frequent suctioning 3-Elevated Troponin in view of prior CAD with CABG and acute illness likely demand ischemia cont monitor closely Cont home meds for chronic conditions. DVT prophylaxis mechanical PT/OT once clinically optimized SW/CM possible placement Disposition: expect complicated course of stay due to extensive past medical history and aspiration pneumonia in elderly patient. VS,Fishbone, I+O VS, Fishbone, I+O Laboratory Tests 05/01/19 11:03 Red Blood Count 3.99 L, Mean Corpuscular Volume 98.7 H, Mean Corpuscular Hemoglobin 32.8, Mean Corpuscular Hemoglobin Concent 33.2, Red Cell Distribution Width 13.4, Neutrophils (%) (Auto) 91.0 H, Lymphocytes (%) (Auto) 5.1 L, Monocytes (%) (Auto) 2.8, Eosinophils (%) (Auto) 0.3, Basophils (%) (Auto) 0.2, Neutrophils # (Auto) 10.9 H, Lymphocytes # (Auto) 0.6 L, Monocytes # (Auto) 0.3, Eosinophils # (Auto) 0.0, Basophils # (Auto) 0.0 05/02/19 03:38 Red Blood Count 4.13 L, Mean Corpuscular Volume 96.4 H, Mean Corpuscular H emoglobin 32.4, Mean Corpuscular Hemoglobin Concent 33.7, Red Cell Distribution Width 13.4, Calcium Level 8.2 L Vital Signs Date Time Temp Pulse Resp B/P (MAP) Pulse Ox O2 Delivery O2 Flow Rate FiO2 05/02/19 07:39 97.3 72 20 99/56 (70) 95 6.0 05/01/19 19:15 Nasal Cannula 05/01/19 11:30 93 I&O- Last 24 Hours up to 6 AM 05/02/19 06:00 Intake Total 920 ml Output Total 725 ml Balance 195 ml RIANA MARTINEZ MD May 02, 2019 10:35
[2019-05-02] MEDS: ONDANSETRON 4MG/2ML VIAL (J2405) IV PRN (13:34)
[2019-05-02] MEDS ORDERED: VANCOMYCIN HCL 1,000 MG, VIAL MATE ADAPTER 1 EACH in D5W 250 ML IV SCH (15:00)
[2019-05-02] MEDS: ATORVASTATIN 20 MG TAB PO SCH (20:30)
[2019-05-02] MEDS: TAMSULOSIN 0.4 MG CAP PO SCH (20:30)
--- NOTE | 2019-05-02 21:38 | NUR ---
Pt seen for clinical swallow evaluation d/t dx of pneumonia w/rt lung base infiltrates. Pt presents with mild-moderate oropharyngeal phase dysphagia as characterized by: decreased chewing, coughing with thin liquids and soft solid mix (thin liquid base). Pt at baseline does not eat meats or anything chewy or crunchy. Recommend: Level 2 solids (NDD) and nectar thick liquids. Meds crushed in puree assist. Recommend: Follow up to determined level of tolerance and possible need for Modified Barium Swallow study. Addendum: 05/03/19 at 2142 by MIKE QUISPE [facility] Amended: Links added.
[2019-05-03] VITALS (7 sets, daily range): BP systolic 115–149; BP diastolic 53–86
[2019-05-03] MEDS: PIPERACILLIN/TAZOBACTAM SOD 3.375 GM in D5W MINI-BAG PLUS 50 ML IV SCH ×4 (01:09→18:46)
[2019-05-03] MEDS: IPRATROPIUM 0.5MG/ALBUTEROL 2.5MG INH SOL UD 3ML (DUONEB)(J7620) INH SCH ×6 (01:48→20:07)
[2019-05-03 04:52] LABS: HEMATOCRIT 38.7 % (42.0-52.0); HEMOGLOBIN 13.1 g/dl (13.5-17.5); MEAN CORPUSCULAR HEMOGLOBIN 32.4 pg (27.0-33.0); MEAN CORPUSCULAR HGB CONC 33.9 g/dl (32.0-36.5); MEAN CORPUSCULAR VOLUME 95.8 fl (80.0-96.0); PLATELET COUNT, AUTOMATED 151 10^3/uL (150-450); RED BLOOD COUNT 4.04 10^6/uL (4.30-6.10); WHITE BLOOD COUNT 12.5 10^3/uL (4.0-10.0)
[2019-05-03 05:14] LABS: CREATININE FOR GFR 1.41 MG/DL (0.70-1.30); GLOMERULAR FILTRATION RATE 50.9 (>35); POTASSIUM SERUM 3.2 MEQ/L (3.5-5.1)
--- NOTE | 2019-05-03 07:47 | IPNPDOC ---
Text Note Date of Service The patient was seen on 05/03/19. NOTE Pt was seen and examined at bedside. Pt is awake with episodes of confusion. Respiratory hernandez improving. Off NC. Requires PT/OT. PHYSICAL EXAMINATION: VITAL SIGNS: please see below GENERAL APPEARANCE: Pt is frail elderly gentleman memory and speech coherent HEENT: EOMI JACKSON neck supple no JVD no LAP mucus membranes moist CARDIOVASCULAR: S1 S2 regular rate and rhythm LUNGS: bilat good air entry extensive rales bilateral ABDOMEN: soft not tender not distended MUSCULOSKELETAL: no joint deformity EXTREMITIES: no edema no cyanosis no tenderness NEUROLOGICAL: motor sensory grossly intact PSYCHIATRIC: mood affect appropriate Vital Signs Date Time Temp Pulse Resp B/P (MAP) Pulse Ox O2 Delivery O2 Flow Rate FiO2 05/03/19 00:00 3.0 05/02/19 22:25 97.6 103 18 118/78 (91) 91 3.0 05/02/19 22:25 3.0 05/02/19 20:00 3.0 05/02/19 20:00 96.9 88 18 121/87 (98) 91 3.0 05/02/19 15:45 2.0 05/02/19 15:40 97.5 67 20 133/61 (85) 91 2.0 05/02/19 11:30 3.0 05/02/19 11:23 97.2 73 22 130/60 (83) 100 3.0 05/02/19 09:38 112/58 (76) Intake & Output 05/03/19 06:00 Intake Total 300 ml Output Total 900 ml Balance -600 ml Laboratory Tests 05/02/19 07:52: Methicillin-Resist S.aureus DNA PCR NOT DETECTED 05/03/19 04:40: White Blood Count 12.5H, Red Blood Count 4.04L, Hemoglobin 13.1L, Hematocrit 38.7L, Mean Corpuscular Volume 95.8, Mean Corpuscular Hemoglobin 32.4, Mean Corpuscular Hemoglobin Concent 33.9, Red Cell Distribution Width 13.5, Platelet Count 151, Nucleated Red Blood Cells % (auto) 0.0, Blood Urea Nitrogen 31H, Creatinine 1.41H, Sodium Level 138, Potassium Level 3.2L, Chloride Level 103, Carbon Dioxide Level 27, Calcium Level 9.0, Anion Gap 8, Glomerular Filtration Rate 50.9, Fasting Glucose 112H Current Medications Medications (Trade) Dose Ordered Sig/Juan Ramon Route PRN Reason Start Time Stop Time Status Last Admin Dose Admin Albuterol/ Ipratropium (Duoneb (Ipr 0.5mg/Alb 2.5mg)) 3 ml RQ4H INH 05/01/19 16:00 05/03/19 07:10 3 ML Aspirin (Ecotrin) 81 mg DAILY PO 05/01/19 09:00 05/01/19 16:15 81 MG Atorvastatin Calcium (Lipitor) 40 mg QHS PO 05/01/19 21:00 05/02/19 20:30 40 MG Gabapentin (Neurontin) 200 mg QHS PO 05/01/19 21:00 05/02/19 20:30 200 MG Ondansetron HCl (ZOFRAN INJection) 4 mg Q6HP PRN IV NAUSEA OR VOMITING 05/02/19 14:00 05/02/19 13:34 4 MG Piperacillin Sod/ Tazobactam Sod 3.375 gm/Dextrose 50 ml @ 50 mls/hr Q6H IV 05/01/19 13:00 05/03/19 06:45 50 MLS/HR Tamsulosin HCl (Flomax) 0.4 mg QHS PO 05/01/19 21:00 05/02/19 20:30 0.4 MG A/P 1-Acute hypoxic respiratory failure, improved sec to bilat pneumonia O2 via NC 2lit maintain O2 sats >90 Can give venti mask and nonrebreather in case requiring more oxygenation support ABG 2-Bilateral lobar pneumonia likely aspiration pneumonia need to cover oral cavity anaerobes Broad spectrum antbiotics Zosyn, Vancomycin initially , now MRSA PCR negative Vanc is dc'd monitor clinical response, WBC, lactate blood cultures sent sputum cultures gram positive cocci in pairs as well as gram negative rods Currently appropriate antibiotic coverage Aspiration precautions Elevate head of bed Frequent suctioning 3-Elevated Troponin in view of prior CAD with CABG and acute illness likely demand ischemia cont monitor closely Cont home meds for chronic conditions. DVT prophylaxis mechanical PT/OT once clinically optimized SW/CM possible placement Disposition: expect complicated course of stay due to extensive past medical history and aspiration pneumonia in elderly patient. VS,Fishbone, I+O VS, Fishbone, I+O Laboratory Tests 05/03/19 04:40 Red Blood Count 4.04 L, Mean Corpuscular Volume 95.8, Mean Corpuscular Hemoglobin 32.4, Mean Corpuscular Hemoglobin Concent 33.9, Red Cell Distribution Width 13.5, Calcium Level 9.0 Vital Signs Date Time Temp Pulse Resp B/P (MAP) Pulse Ox O2 Delivery O2 Flow Rate FiO2 05/03/19 00:00 3.0 05/02/19 22:25 97.6 103 18 118/78 (91) 91 05/01/19 19:15 Nasal Cannula 05/01/19 11:30 93 I&O- Last 24 Hours up to 6 AM 05/03/19 06:00 Intake Total 300 ml Output Total 900 ml Balance -600 ml RIANA MARTINEZ MD May 03, 2019 07:47
[2019-05-03] MEDS: OMEPRAZOLE 20 MG CAP PO SCH (08:49)
[2019-05-03] MEDS: FUROSEMIDE 40 MG TAB PO SCH (08:49)
[2019-05-03] MEDS: GABAPENTIN 100 MG CAP PO SCH ×2 (08:49→20:28)
[2019-05-03] MEDS: ASPIRIN 81 MG ENTERIC TAB PO SCH (08:49)
[2019-05-03] MEDS: ISOSORBIDE MON. (IMDUR) 30 MG XR TAB PO SCH (08:49)
[2019-05-03] MEDS: FINASTERIDE 5 MG TAB PO SCH (08:49)
[2019-05-03] MEDS: SPIRONOLACTONE 25 MG TAB PO SCH (08:49)
--- NOTE | 2019-05-03 08:59 | NUR ---
recommend MBSS cookie swallow to assess for safest liquid consistency & r/o aspiration Addendum: 05/03/[address] [facility] Amended: Links added.
[2019-05-03] MEDS ORDERED: VARIBAR PUDDING 40% w/v 230ML TUBE As Ordered ONE (11:28)
[2019-05-03] MEDS ORDERED: E-Z-PAQUE 96% w/w SUSP 176GM BTL As Ordered ONE (11:29)
[2019-05-03] MEDS ORDERED: BARIUM SULFATE 700 MG TABLET (E-Z-DISK) As Ordered ONE (11:29)
[2019-05-03] MEDS ORDERED: VARIBAR NECTAR 40% w/v 240ML SUSP BTL As Ordered ONE (11:29)
--- NOTE | 2019-05-03 12:24 | NUR ---
Recommend honey thick liquids and pureed solids by spoon only. Upright positioning for all PO intake & assistance from staff for feeding as needed. Standard oral care 3x/day please. Addendum: 05/03/19 at 1225 by PATRICIA [facility] Amended: Links added.
[2019-05-03] MEDS: ONDANSETRON 4MG/2ML VIAL (J2405) IV PRN (13:04)
[2019-05-03] MEDS ORDERED: SLF 3 ML SYR IV PRN (13:15)
[2019-05-03] MEDS: SLF 3 ML SYR IV SCH ×2 (14:00→22:38)
--- NOTE | 2019-05-03 15:04 | REP ---
Examination Requested: Cookie Swallow Reason For Exam: Suspected aspiration The procedure was performed by LOIS Rose, under the direct supervision of Dr. Shields. The procedure was performed with Alysha Agudelo from speech pathology present. 5 ml aliquots of honey, and nectar consistency barium was administered. Penetration with aspiration was visualized with nectar consistency barium, with no cough response. The detailed report of this examination will be provided by speech pathology. 2.7 minutes of fluoroscopy time was utilized for this procedure. Reviewed by LOIS Millard 05/03/2019 01:37 P Electronically Signed by Lukas Shields MD 05/03/2019 02:56 P
[2019-05-03] MEDS ORDERED: POTASSIUM CHLORIDE 10 MEQ SR TABLET PO ONE (20:15)
[2019-05-03] MEDS: ATORVASTATIN 20 MG TAB PO SCH (20:27)
[2019-05-03] MEDS: TAMSULOSIN 0.4 MG CAP PO SCH (20:28)
[2019-05-03] MEDS: ACETAMINOPHEN TAB 650MG DOSE (2X325MG) PO PRN (20:31)
[2019-05-04] MEDS: PIPERACILLIN/TAZOBACTAM SOD 3.375 GM in D5W MINI-BAG PLUS 50 ML IV SCH ×4 (00:39→18:15)
[2019-05-04] MEDS: IPRATROPIUM 0.5MG/ALBUTEROL 2.5MG INH SOL UD 3ML (DUONEB)(J7620) INH SCH ×6 (00:45→21:19)
[2019-05-04 04:00] VITALS: BP 125/65
[2019-05-04 06:10] LABS: CALCIUM LEVEL 8.8 MG/DL (8.8-10.2); CREATININE FOR GFR 1.5 MG/DL (0.70-1.30); GLOMERULAR FILTRATION RATE 47.4 (>35); POTASSIUM SERUM 3.3 MEQ/L (3.5-5.1)
[2019-05-04] MEDS: SLF 3 ML SYR IV SCH ×3 (06:43→21:56)
[2019-05-04 08:00] VITALS: BP 113/56
[2019-05-04] MEDS: SPIRONOLACTONE 25 MG TAB PO SCH (08:37)
[2019-05-04] MEDS: ASPIRIN 81 MG ENTERIC TAB PO SCH (08:38)
[2019-05-04] MEDS: FUROSEMIDE 40 MG TAB PO SCH (08:38)
[2019-05-04] MEDS: GABAPENTIN 100 MG CAP PO SCH ×2 (08:38→20:39)
[2019-05-04] MEDS: OMEPRAZOLE 20 MG CAP PO SCH (08:38)
[2019-05-04] MEDS: FINASTERIDE 5 MG TAB PO SCH (08:38)
[2019-05-04] MEDS: ISOSORBIDE MON. (IMDUR) 30 MG XR TAB PO SCH (08:39)
[2019-05-04 11:33] VITALS: BP 103/64
[2019-05-04 16:00] VITALS: BP 140/63
[2019-05-04] MEDS: ACETAMINOPHEN TAB 650MG DOSE (2X325MG) PO PRN ×2 (16:32→20:40)
--- NOTE | 2019-05-04 18:52 | IPNPDOC ---
Text Note Date of Service The patient was seen on 05/04/19. NOTE Pt was seen and examined at bedside. Pt is awake with episodes of confusion. Respiratory hernandez improving. Off NC. Requires PT/OT. RN notified that pt with residual urine in bladder as per bladder scan, pt denies any discomfort no suprapubic enlargement. Will continue to monitor. PHYSICAL EXAMINATION: VITAL SIGNS: please see below GENERAL APPEARANCE: Pt is frail elderly gentleman memory and speech coherent HEENT: EOMI JACKSON neck supple no JVD no LAP mucus membranes moist CARDIOVASCULAR: S1 S2 regular rate and rhythm LUNGS: bilat good air entry extensive rales bilateral ABDOMEN: soft not tender not distended MUSCULOSKELETAL: no joint deformity EXTREMITIES: no edema no cyanosis no tenderness NEUROLOGICAL: motor sensory grossly intact PSYCHIATRIC: mood affect appropriate Vital Signs Date Time Temp Pulse Resp B/P (MAP) Pulse Ox O2 Delivery O2 Flow Rate FiO2 05/03/19 00:00 3.0 05/02/19 22:25 97.6 103 18 118/78 (91) 91 3.0 05/02/19 22:25 3.0 05/02/19 20:00 3.0 05/02/19 20:00 96.9 88 18 121/87 (98) 91 3.0 05/02/19 15:45 2.0 05/02/19 15:40 97.5 67 20 133/61 (85) 91 2.0 05/02/19 11:30 3.0 05/02/19 11:23 97.2 73 22 130/60 (83) 100 3.0 05/02/19 09:38 112/58 (76) Intake & Output 05/03/19 06:00 Intake Total 300 ml Output Total 900 ml Balance -600 ml Laboratory Tests 05/02/19 07:52: Methicillin-Resist S.aureus DNA PCR NOT DETECTED 05/03/19 04:40: White Blood Count 12.5H, Red Blood Count 4.04L, Hemoglobin 13.1L, Hematocrit 38.7L, Mean Corpuscular Volume 95.8, Mean Corpuscular Hemoglobin 32.4, Mean Corpuscular Hemoglobin Concent 33.9, Red Cell Distribution Width 13.5, Platelet Count 151, Nucleated Red Blood Cells % (auto) 0.0, Blood Urea Nitrogen 31H, Creatinine 1.41H, Sodium Level 138, Potassium Level 3.2L, Chloride Level 103, Carbon Dioxide Level 27, Calcium Level 9.0, Anion Gap 8, Glomerular Filtration Rate 50.9, Fasting Glucose 112H Current Medications Medications (Trade) Dose Ordered Sig/Juan Ramon Route PRN Reason Start Time Stop Time Status Last Admin Dose Admin Albuterol/ Ipratropium (Duoneb (Ipr 0.5mg/Alb 2.5mg)) 3 ml RQ4H INH 05/01/19 16:00 05/03/19 07:10 3 ML Aspirin (Ecotrin) 81 mg DAILY PO 05/01/19 09:00 05/01/19 16:15 81 MG Atorvastatin Calcium (Lipitor) 40 mg QHS PO 05/01/19 21:00 05/02/19 20:30 40 MG Gabapentin (Neurontin) 200 mg QHS PO 05/01/19 21:00 05/02/19 20:30 200 MG Ondansetron HCl (ZOFRAN INJection) 4 mg Q6HP PRN IV NAUSEA OR VOMITING 05/02/19 14:00 05/02/19 13:34 4 MG Piperacillin Sod/ Tazobactam Sod 3.375 gm/Dextrose 50 ml @ 50 mls/hr Q6H IV 05/01/19 13:00 05/03/19 06:45 50 MLS/HR Tamsulosin HCl (Flomax) 0.4 mg QHS PO 05/01/19 21:00 05/02/19 20:30 0.4 MG A/P 1-Acute hypoxic respiratory failure, improved sec to bilat pneumonia O2 via NC 2lit maintain O2 sats >90 Can give venti mask and nonrebreather in case requiring more oxygenation support ABG 2-Bilateral lobar pneumonia likely aspiration pneumonia need to cover oral cavity anaerobes Broad spectrum antbiotics Zosyn, Vancomycin initially , now MRSA PCR negative Vanc is dc'd monitor clinical response, WBC, lactate blood cultures sent sputum cultures gram positive cocci in pairs as well as gram negative rods Currently appropriate antibiotic coverage Aspiration precautions Elevate head of bed Frequent suctioning 3-Elevated Troponin in view of prior CAD with CABG and acute illness likely demand ischemia cont monitor closely Cont home meds for chronic conditions. DVT prophylaxis mechanical PT/OT once clinically optimized SW/CM possible placement Disposition: expect complicated course of stay due to extensive past medical history and aspiration pneumonia in elderly patient. VS,Fishbone, I+O VS, Fishbone, I+O Laboratory Tests 05/04/19 05:21 Calcium Level 8.8 Vital Signs Date Time Temp Pulse Resp B/P (MAP) Pulse Ox O2 Delivery O2 Flow Rate FiO2 05/04/19 16:00 97.6 56 20 140/63 (88) 94 3.0 05/01/19 19:15 Nasal Cannula 05/01/19 11:30 93 I&O- Last 24 Hours up to 6 AM 05/04/19 05:59 Intake Total 730 ml Output Total 1000 ml Balance -270 ml RIANA MARTINEZ MD May 04, 2019 18:52
[2019-05-04 20:00] VITALS: BP 116/77
[2019-05-04] MEDS ORDERED: POTASSIUM CHLORIDE 10 MEQ SR TABLET PO ONE (20:15)
[2019-05-04] MEDS: ATORVASTATIN 20 MG TAB PO SCH (20:38)
[2019-05-04] MEDS: TAMSULOSIN 0.4 MG CAP PO SCH (20:39)
[2019-05-04 23:59] VITALS: BP 111/60
[2019-05-05] MEDS: IPRATROPIUM 0.5MG/ALBUTEROL 2.5MG INH SOL UD 3ML (DUONEB)(J7620) INH SCH ×7 (00:29→23:32)
[2019-05-05] MEDS: PIPERACILLIN/TAZOBACTAM SOD 3.375 GM in D5W MINI-BAG PLUS 50 ML IV SCH ×4 (01:04→18:15)
[2019-05-05 04:00] VITALS: BP 121/63
[2019-05-05 05:22] LABS: CALCIUM LEVEL 8.8 MG/DL (8.8-10.2); CREATININE FOR GFR 1.5 MG/DL (0.70-1.30); GLOMERULAR FILTRATION RATE 47.4 (>35); POTASSIUM SERUM 3.7 MEQ/L (3.5-5.1)
[2019-05-05] MEDS: SLF 3 ML SYR IV SCH ×3 (05:49→22:52)
[2019-05-05 07:36] VITALS: BP 115/66
[2019-05-05 08:03] LABS: HEMATOCRIT 35.1 % (42.0-52.0); HEMOGLOBIN 11.7 g/dl (13.5-17.5); MEAN CORPUSCULAR HEMOGLOBIN 33.7 pg (27.0-33.0); MEAN CORPUSCULAR HGB CONC 33.3 g/dl (32.0-36.5); MEAN CORPUSCULAR VOLUME 101.2 fl (80.0-96.0); PLATELET COUNT, AUTOMATED 173 10^3/uL (150-450); RED BLOOD COUNT 3.47 10^6/uL (4.30-6.10); WHITE BLOOD COUNT 13.7 10^3/uL (4.0-10.0)
[2019-05-05] MEDS: ASPIRIN 81 MG ENTERIC TAB PO SCH (09:29)
[2019-05-05] MEDS: FINASTERIDE 5 MG TAB PO SCH (09:29)
[2019-05-05] MEDS: OMEPRAZOLE 20 MG CAP PO SCH (09:30)
[2019-05-05] MEDS: GABAPENTIN 100 MG CAP PO SCH ×2 (09:30→20:31)
[2019-05-05] MEDS: FUROSEMIDE 40 MG TAB PO SCH (09:30)
[2019-05-05] MEDS: SPIRONOLACTONE 25 MG TAB PO SCH (09:30)
[2019-05-05] MEDS: ISOSORBIDE MON. (IMDUR) 30 MG XR TAB PO SCH (09:32)
--- NOTE | 2019-05-05 11:04 | IPNPDOC ---
Subjective Date Seen The patient was seen on 05/05/19. Subjective Chief Complaint/HPI Patient seen and examined at bedside. No acute overnight events noted. Objective Physical Examination General Exam: Positive: Alert, Cooperative, No Acute Distress ENT Exam: Positive: Atraumatic, Mucous membr. moist/pink Neck Exam: Negative: JVD Chest Exam: Positive: Diminished Heart Exam: Positive: Rate Normal, Normal S1, Normal S2 Abdomen Exam: Positive: Soft; Negative: Tenderness Extremity Exam: Negative: Tenderness, Swelling Assessment /Plan Plan/VTE VTE Prophylaxis Ordered?: Yes Plan Acute hypoxic respiratory failure 2/2 Bilateral lobar pneumonia likely due to aspiration pneumonia Continue Zosyn Blood and sputum cultures unrevealing Aspiration precautions Elevate head of bed Frequent suctioning We will down titrate supplemental oxygen as tolerated Nodule like Density on CT Chest possibly 2/2 inspissated pleural fluid The patient will need a follow-up CT chest to further monitor this for resolution, and/or further workup. Elevated Troponin 2/2 Above in view of prior CAD with CABG and acute illness likely demand ischemia Patient denies any chest pain at this time Continue aspirin, statin cont monitor closely Chronic Kidney disease stage III Serum creatinine appears to be at baseline BPH Continue Proscar, Flomax Neuropathy Continue gabapentin Anxiety/depression Continue Klonopin GERD Continue PPI DVT prophylaxis mechanical PT/OT for functional optimization SW/CM possible placement VS, I&O, 24H, Fishbone Vital Signs/I&O Vital Signs Date Time Temp Pulse Resp B/P (MAP) Pulse Ox O2 Delivery O2 Flow Rate FiO2 05/05/19 09:50 93 4.0 05/05/19 09:32 115/66 05/05/19 08:12 Nasal Cannula 05/05/19 07:36 97.5 67 18 05/01/19 11:30 93 I&O- Last 24 Hours up to 6 AM 05/05/19 06:00 Intake Total 800 ml Output Total 625 ml Balance 175 ml Laboratory Data 24H LABS Laboratory Tests 2 05/05/19 04:30: Nucleated Red Blood Cells % (auto) 0.0 05/05/19 04:32: Anion Gap 9, Glomerular Filtration Rate 47.4, Blood Urea Nitrogen 40H, Creatinine 1.50H, Sodium Level 144, Potassium Level 3.7, Chloride Level 108H, Carbon Dioxide Level 27, Calcium Level 8.8 CBC/BMP Laboratory Tests 05/05/19 04:30 Red Blood Count 3.47 L, Mean Corpuscular Volume 101.2 H, Mean Corpuscular Hemoglobin 33.7 H, Mean Corpuscular Hemoglobin Concent 33.3, Red Cell Distributi on Width 13.9 05/05/19 04:32 Calcium Level 8.8 Microbiology Microbiology 05/01/19 Blood Culture - Preliminary, Resulted No Growth after 72 hours. All specime... 05/01/19 Blood Culture - Preliminary, Resulted No Growth after 72 hours. All specime... 05/01/19 Blood Culture - Preliminary, Resulted No Growth after 72 hours. All specime... 05/01/19 Gram Stain - Final, Complete 05/01/19 Sputum Culture - Final, Complete Yeast Like Organism MELISSA AQUINO MD May 05, 2019 11:04
[2019-05-05 11:25] VITALS: BP 106/68
[2019-05-05 16:00] VITALS: BP 117/82
[2019-05-05 20:00] VITALS: BP 135/75
[2019-05-05] MEDS: TAMSULOSIN 0.4 MG CAP PO SCH (20:30)
[2019-05-05] MEDS: ATORVASTATIN 20 MG TAB PO SCH (20:31)
[2019-05-05] MEDS: clonazePAM 0.5 MG TAB PO PRN (22:53)
[2019-05-05 23:59] VITALS: BP 122/62
[2019-05-06] MEDS: PIPERACILLIN/TAZOBACTAM SOD 3.375 GM in D5W MINI-BAG PLUS 50 ML IV SCH ×4 (00:59→18:32)
[2019-05-06 04:00] VITALS: BP 126/73
[2019-05-06] MEDS: IPRATROPIUM 0.5MG/ALBUTEROL 2.5MG INH SOL UD 3ML (DUONEB)(J7620) INH SCH ×5 (04:00→20:10)
[2019-05-06 05:40] LABS: HEMOGLOBIN 11.6 g/dl (13.5-17.5); MEAN CORPUSCULAR HEMOGLOBIN 33.6 pg (27.0-33.0); MEAN CORPUSCULAR HGB CONC 34.1 g/dl (32.0-36.5); MEAN CORPUSCULAR VOLUME 98.6 fl (80.0-96.0); PLATELET COUNT, AUTOMATED 187 10^3/uL (150-450); RED BLOOD COUNT 3.45 10^6/uL (4.30-6.10)
[2019-05-06 06:06] LABS: CREATININE FOR GFR 1.33 MG/DL (0.70-1.30); GLOMERULAR FILTRATION RATE 54.4 (>35); POTASSIUM SERUM 3.6 MEQ/L (3.5-5.1)
[2019-05-06] MEDS: SLF 3 ML SYR IV SCH ×3 (06:09→21:59)
[2019-05-06 08:48] VITALS: BP 124/68
[2019-05-06] MEDS: FINASTERIDE 5 MG TAB PO SCH (08:50)
[2019-05-06] MEDS: OMEPRAZOLE 20 MG CAP PO SCH (08:50)
[2019-05-06] MEDS: ASPIRIN 81 MG ENTERIC TAB PO SCH (08:50)
[2019-05-06] MEDS: ISOSORBIDE MON. (IMDUR) 30 MG XR TAB PO SCH (08:50)
[2019-05-06] MEDS: SPIRONOLACTONE 25 MG TAB PO SCH (08:50)
[2019-05-06] MEDS: FUROSEMIDE 40 MG TAB PO SCH (08:50)
[2019-05-06] MEDS: GABAPENTIN 100 MG CAP PO SCH ×2 (08:50→21:58)
[2019-05-06 12:32] VITALS: BP 136/86
[2019-05-06 16:00] VITALS: BP 142/88
--- NOTE | 2019-05-06 17:36 | IPNPDOC ---
Subjective Date Seen The patient was seen on 05/06/19. at 840 am Subjective Chief Complaint/HPI weakness Events since last encounter no acute events the patient is confused and not answering questions appropriately Objective Physical Examination General Exam: Positive: Alert, Cooperative, No Acute Distress ENT Exam: Positive: Atraumatic, Mucous membr. moist/pink Neck Exam: Negative: JVD Chest Exam: Positive: Rhonchi Heart Exam: Positive: Rate Normal, Normal S1, Normal S2 Abdomen Exam: Positive: Soft Extremity Exam: Negative: Tenderness, Swelling Psych Exam: Positive: Other (alert but not oriented to person place or time) Assessment /Plan Assessment is an 83 yr old M w a PMH of A fib ?, HTN, CKD III Dyslipidemia, Neuropathy, BPH, MVR, TVR, Diastolic CHF, multiple ICH, Chronic CAD s/p CABG and PCI, SIADH, Diverticulosis and stable AAA who is admitted for management of PNA. 1.Acute Hypoxic Respiratory Failure 2/2 Bilateral aspiration PNA -afebrile -WBC still elevated -galindo cx show sputum w a few yeast like organisms of unclear significance Plan: c/w O2 via nasal cannula, f/u ABG in AM, b/c of persistent leucocytosis will c/w Vanc and Zosyn, 2. Elevated Troponin -likely 2/2 acute illness / demand ischemia Plan: no acute intervention 3.Pulmonary Nodule per 's note "CT Chest possibly 2/2 inspissated pleural fluid" Plan: f/u w PCP for repeat CT on an out pt basis 4.CKD III -stable Plan;f/u BMP in AM 5.HTN / Diastolic CHF Plan: c/w current meds 6 Dyslipidemia / Chronic CAD s/p CABG and PCI Plan: c/w current meds 7 BPHcoc Plan: c/w current meds 8 Neuropathy Plan: Gabapentin Dispo: pending improvement and PT/OT eval to confirm if he needs to be sent to a SNF for rehab Plan/VTE VTE Prophylaxis Ordered?: Yes VS, I&O, 24H, Fishbone Vital Signs/I&O Vital Signs Date Time Temp Pulse Resp B/P (MAP) Pulse Ox O2 Delivery O2 Flow Rate FiO2 05/06/19 16:00 97.9 62 19 142/88 (106) 100 4.0 05/05/19 08:12 Nasal Cannula 05/01/19 11:30 93 I&O- Last 24 Hours up to 6 AM 05/06/19 05:59 Intake Total 690 ml Output Total 800 ml Balance -110 ml Laboratory Data 24H LABS Laboratory Tests 2 05/06/19 05:13: Nucleated Red Blood Cells % (auto) 0.0, Anion Gap 6L, Glomerular Filtration Rate 54.4, Blood Urea Nitrogen 34H, Creatinine 1.33H, Sodium Level 144, Potassium Level 3.6, Chloride Level 109H, Carbon Dioxide Level 29, Calcium Level 9.0 CBC/BMP Laboratory Tests 05/06/19 05:13 Red Blood Count 3.45 L, Mean Corpuscular Volume 98.6 H, Mean Corpuscular Hemoglobin 33.6 H, Mean Corpuscular Hemoglobin Concent 34.1, Red Cell Distribution Width 14.0, Calcium Level 9.0 Microbiology Microbiology 05/01/19 Blood Culture - Final, Complete NO GROWTH AFTER 5 DAYS 05/01/19 Blood Culture - Final, Complete NO GROWTH AFTER 5 DAYS 05/01/19 Blood Culture - Final, Complete NO GROWTH AFTER 5 DAYS 05/01/19 Gram Stain - Final, Complete 05/01/19 Sputum Culture - Final, Complete Yeast Like Organism EDEL APPIAH MD May 06, 2019 17:36
[2019-05-06] MEDS: NICOTINE 7 MG/24 HR TRANSDERMAL TD SCH (18:33)
[2019-05-06 20:00] VITALS: BP 130/80
[2019-05-06] MEDS: ATORVASTATIN 20 MG TAB PO SCH (21:58)
[2019-05-06] MEDS: TAMSULOSIN 0.4 MG CAP PO SCH (22:00)
[2019-05-06 23:59] VITALS: BP 143/75
[2019-05-07 00:06] LABS: BODY FLUID CULTURE Not Indicated (.); LEGIONELLA ANTIGEN URINE Negative (Negative); ORGANISM ID Not indicated. (.); SPECIMEN SOURCE Urine (.); URINE STREP PNEUMONIAE ANTIGEN Negative (Negative)
[2019-05-07] MEDS: IPRATROPIUM 0.5MG/ALBUTEROL 2.5MG INH SOL UD 3ML (DUONEB)(J7620) INH SCH ×7 (00:08→23:43)
[2019-05-07] MEDS: PIPERACILLIN/TAZOBACTAM SOD 3.375 GM in D5W MINI-BAG PLUS 50 ML IV SCH ×4 (01:03→18:22)
[2019-05-07] MEDS: ACETAMINOPHEN TAB 650MG DOSE (2X325MG) PO PRN ×2 (02:42→21:23)
[2019-05-07 04:00] VITALS: BP 133/71
[2019-05-07 05:28] LABS: BASO # 0.1 10^3/uL (0.0-0.2); BASO % 0.4 % (0.0-1.0); EOS # 0.1 10^3/uL (0.0-0.50); EOS % 1.1 % (0.0-3.0); HEMATOCRIT 32.8 % (42.0-52.0); HEMOGLOBIN 11.3 g/dl (13.5-17.5); LYMPH # 0.9 10^3/uL (1.5-4.5); LYMPH % 7.5 % (24.0-44.0); MEAN CORPUSCULAR HEMOGLOBIN 34.1 pg (27.0-33.0); MEAN CORPUSCULAR HGB CONC 34.5 g/dl (32.0-36.5); MEAN CORPUSCULAR VOLUME 99.1 fl (80.0-96.0); MONO # 0.8 10^3/uL (0.0-0.8); MONO % 7.1 % (0.0-5.0); NEUTROPHILS # 9.6 10^3/uL (1.8-7.7); NEUTROPHILS % 81.6 % (36.0-66.0); PLATELET COUNT, AUTOMATED 213 10^3/uL (150-450); RED BLOOD COUNT 3.31 10^6/uL (4.30-6.10); WHITE BLOOD COUNT 11.8 10^3/uL (4.0-10.0)
[2019-05-07 05:31] LABS: ABG BASE EXCESS 0.8 (-2.0-2.0); ABG HCO3 23.8 MEQ/L (22.0-26.0); ABG O2 SATURATION 96.8 % (95.0-99.0); ABG PARTIAL PRESSURE CO2 32.7 mmHg (35.0-45.0); ABG PARTIAL PRESSURE O2 89.4 mmHg (75.0-100.0); ABG STANDARD HCO3 25.2 MEQ/L (22.0-26.0); ABG TOTAL CO2 24.8 MEQ/L (23.0-31.0)
[2019-05-07 05:54] LABS: CALCIUM LEVEL 9.2 MG/DL (8.8-10.2); CREATININE FOR GFR 1.32 MG/DL (0.70-1.30); GLOMERULAR FILTRATION RATE 54.9 (>35)
[2019-05-07] MEDS ORDERED: POTASSIUM CHLORIDE 10 MEQ SR TABLET PO ONE (06:45)
[2019-05-07] MEDS: SLF 3 ML SYR IV SCH ×3 (07:34→21:24)
[2019-05-07 08:00] VITALS: BP 144/76
[2019-05-07] MEDS ORDERED: POTASSIUM CHLORIDE 10% LIQ 20 MEQ/15 ML UDC PO ONE (08:15)
[2019-05-07] MEDS: ASPIRIN 81 MG ENTERIC TAB PO SCH (08:30)
[2019-05-07] MEDS: OMEPRAZOLE 20 MG CAP PO SCH (08:30)
[2019-05-07] MEDS: NICOTINE 7 MG/24 HR TRANSDERMAL TD SCH (08:30)
[2019-05-07] MEDS: SPIRONOLACTONE 25 MG TAB PO SCH (08:30)
[2019-05-07] MEDS: GABAPENTIN 100 MG CAP PO SCH ×2 (08:30→21:24)
[2019-05-07] MEDS: FINASTERIDE 5 MG TAB PO SCH (08:30)
[2019-05-07] MEDS: FUROSEMIDE 40 MG TAB PO SCH (08:31)
[2019-05-07] MEDS: ISOSORBIDE MON. (IMDUR) 30 MG XR TAB PO SCH (08:31)
[2019-05-07] MEDS: POTASSIUM CHLORIDE 10% LIQ 20 MEQ/15 ML UDC PO SCH ×2 (09:00→21:24)
[2019-05-07] MEDS: SENNA 8.6 MG TAB (SENOKOT) PO PRN (11:27)
[2019-05-07 12:00] VITALS: BP 133/71
[2019-05-07 16:00] VITALS: BP 131/68
--- NOTE | 2019-05-07 16:42 | IPNPDOC ---
Subjective Date Seen The patient was seen on 05/07/19. 300pm Subjective Chief Complaint/HPI weakness Events since last encounter patient is more alert today has no acute c/o Objective Physical Examination General Exam: Positive: Alert, Cooperative, No Acute Distress ENT Exam: Positive: Atraumatic, Mucous membr. moist/pink Neck Exam: Negative: JVD Chest Exam: Positive: Normal air movement, Rhonchi Heart Exam: Positive: Rate Normal, Normal S1, Normal S2 Abdomen Exam: Positive: Soft Extremity Exam: Negative: Tenderness, Swelling Psych Exam: Positive: Memory Intact Assessment /Plan Assessment is an 83 yr old M w a PMH of A fib ?, HTN, CKD III Dyslipidemia, N europathy, BPH, MVR, TVR, Diastolic CHF, multiple ICH, Chronic CAD s/p CABG and PCI, SIADH, Diverticulosis and stable AAA who is admitted for management of PNA. 1.Acute Hypoxic Respiratory Failure 2/2 Bilateral aspiration PNA -afebrile -WBC trending down -galindo cx show sputum w a few yeast like organisms of unclear significance -ABG reviewed shows improving hypercarbia Plan: wean off O2 , c/w Vanc and Zosyn, 2. Elevated Troponin -likely 2/2 acute illness / demand ischemia Plan: no acute intervention 3.Pulmonary Nodule per 's note "CT Chest possibly 2/2 inspissated pleural fluid" Plan: f/u w PCP for repeat CT on an out pt basis 4.CKD III -stable Plan;f/u BMP in AM 5.HTN / Diastolic CHF Plan: c/w current meds 6 Dyslipidemia / Chronic CAD s/p CABG and PCI Plan: c/w current meds 7 BPH Plan: c/w current meds 8 Neuropathy Plan: Gabapentin DVT px w SCDs Dispo: pending improvement and PT/OT eval to confirm if he needs to be sent to a SNF for rehab vs back home (he lives alone) attempted to call his daughter to discuss placement plans but no one picked up the phone Plan/VTE VTE Prophylaxis Ordered?: Yes VS, I&O, 24H, Fishbone Vital Signs/I&O Vital Signs Date Time Temp Pulse Resp B/P (MAP) Pulse Ox O2 Delivery O2 Flow Rate FiO2 05/07/19 16:00 4.0 05/07/19 16:00 97.4 62 18 131/68 (89) 93 05/07/19 03:28 Nasal Cannula 05/01/19 11:30 93 I&O- Last 24 Hours up to 6 AM 05/07/19 05:59 Intake Total 700 ml Output Total 375 ml Balance 325 ml Laboratory Data 24H LABS Laboratory Tests 2 05/07/19 03:02: Methicillin-Resist S.aureus DNA PCR NOT DETECTED 05/07/19 05:02: Immature Granulocyte % (Auto) 2.3, White Blood Count 11.8H, Red Blood Count 3.31L, Hemoglobin 11.3L, Hematocrit 32.8L, Mean Corpuscular Volume 99.1H, Mean Corpuscular Hemoglobin 34.1H, Mean Corpuscular Hemoglobin Concent 34.5, Red Cell Distribution Width 14.4, Platelet Count 213, Neutrophils (%) (Auto) 81.6H, Lymphocytes (%) (Auto) 7.5L, Monocytes (%) (Auto) 7.1H, Eosinophils (%) (Auto) 1.1, Basophils (%) (Auto) 0.4, Neutrophils # (Auto) 9.6H, Lymphocytes # (Auto) 0.9L, Monocytes # (Auto) 0.8, Eosinophils # (Auto) 0.1, Basophils # (Auto) 0.1, Nucleated Red Blood Cells % (auto) 0.0, Anion Gap 6L, Glomerular Filtration Rate 54.9, Blood Urea Nitrogen 34H, Creatinine 1.32H, Sodium Level 145, Potassium Level 3.0L, Chloride Level 110H, Carbon Dioxide Level 29, Calcium Level 9.2 05/07/19 05:26: Blood Gas Bicarbonate Standard 25.2, Arterial Blood pH 7.480H, Arterial Blood Partial Pressure CO2 32.7L, Arterial Blood Partial Pressure O2 89.4, Arterial Blood Total CO2 24.8, Arterial Blood HCO3 23.8, Arterial Blood Base Excess 0.8, Arterial Blood Oxygen Saturation 96.8 05/07/19 09:43: Magnesium Level 2.5H CBC/BMP Laboratory Tests 05/07/19 05:02 Red Blood Count 3.31 L, Mean Corpuscular Volume 99.1 H, Mean Corpuscular Hemoglobin 34.1 H, Mean Corpuscular Hemoglobin Concent 34.5, Red Cell Distribution Width 14.4, Neutrophils (%) (Auto) 81.6 H, Lymphocytes (%) (Auto) 7.5 L, Monocytes (%) (Auto) 7.1 H, Eosinophils (%) (Auto) 1.1, Basophils (%) (Auto) 0.4, Neutrophils # (Auto) 9.6 H, Lymphocytes # (Auto) 0.9 L, Monocytes # (Auto) 0.8, Eosinophils # (Auto) 0.1, Basophils # (Auto) 0.1, Calcium Level 9.2 Microbiology Microbiology 05/01/19 Blood Culture - Final, Complete NO GROWTH AFTER 5 DAYS 05/01/19 Blood Culture - Final, Complete NO GROWTH AFTER 5 DAYS 05/01/19 Blood Culture - Final, Complete NO GROWTH AFTER 5 DAYS 05/01/19 Gram Stain - Final, Complete 05/01/19 Sputum Culture - Final, Complete Yeast Like Organism EDEL APPIAH MD May 07, 2019 16:42
--- NOTE | 2019-05-07 19:38 | IPNPDOC ---
Subjective Date Seen The patient was seen on 05/07/19. Subjective Chief Complaint/HPI weakness Events since last encounter No acute overnight events. Per discussion with nursing staff. The patient is more alert Objective Physical Examination General Exam: Positive: Alert, Cooperative, No Acute Distress ENT Exam: Positive: Atraumatic, Mucous membr. moist/pink Neck Exam: Negative: JVD Chest Exam: Positive: Normal air movement, Other (rhochi resolving) Heart Exam: Positive: Rate Normal, Normal S1, Normal S2 Abdomen Exam: Positive: Soft Extremity Exam: Negative: Tenderness, Swelling Psych Exam: Positive: Memory Intact Assessment /Plan Plan/VTE VTE Prophylaxis Ordered?: Yes VS, I&O, 24H, Fishbone Vital Signs/I&O Vital Signs Date Time Temp Pulse Resp B/P (MAP) Pulse Ox O2 Delivery O2 Flow Rate FiO2 05/07/19 16:00 4.0 05/07/19 16:00 97.4 62 18 131/68 (89) 93 05/07/19 03:28 Nasal Cannula 05/01/19 11:30 93 I&O- Last 24 Hours up to 6 AM 05/07/19 06:00 Intake Total 700 ml Output Total 375 ml Balance 325 ml Laboratory Data 24H LABS Laboratory Tests 2 05/07/19 03:02: Methicillin-Resist S.aureus DNA PCR NOT DETECTED 05/07/19 05:02: Immature Granulocyte % (Auto) 2.3, White Blood Count 11.8H, Red Blood Count 3.31L, Hemoglobin 11.3L, Hematocrit 32.8L, Mean Corpuscular Volume 99.1H, Mean Corpuscular Hemoglobin 34.1H, Mean Corpuscular Hemoglobin Concent 34.5, Red Cell Distribution Width 14.4, Platelet Count 213, Neutrophils (%) (Auto) 81.6H, Lymphocytes (%) (Auto) 7.5L, Monocytes (%) (Auto) 7.1H, Eosinophils (%) (Auto) 1.1, Basophils (%) (Auto) 0.4, Neutrophils # (Auto) 9.6H, Lymphocytes # (Auto) 0.9L, Monocytes # (Auto) 0.8, Eosinophils # (Auto) 0.1, Basophils # (Auto) 0.1, Nucleated Red Blood Cells % (auto) 0.0, Anion Gap 6L, Glomerular Filtration Rate 54.9, Blood Urea Nitrogen 34H, Creatinine 1.32H, Sodium Level 145, Potassium Level 3.0L, Chloride Level 110H, Carbon Dioxide Level 29, Calcium Level 9.2 05/07/19 05:26: Blood Gas Bicarbonate Standard 25.2, Arterial Blood pH 7.480H, Arterial Blood Partial Pressure CO2 32.7L, Arterial Blood Partial Pressure O2 89.4, Arterial Blood Total CO2 24.8, Arterial Blood HCO3 23.8, Arterial Blood Base Excess 0.8, Arterial Blood Oxygen Saturation 96.8 05/07/19 09:43: Magnesium Level 2.5H CBC/BMP Laboratory Tests 05/07/19 05:02 Red Blood Count 3.31 L, Mean Corpuscular Volume 99.1 H, Mean Corpuscular Hemoglobin 34.1 H, Mean Corpuscular Hemoglobin Concent 34.5, Red Cell Distribution Width 14.4, Neutrophils (%) (Auto) 81.6 H, Lymphocytes (%) (Auto) 7.5 L, Monocytes (%) (Auto) 7.1 H, Eosinophils (%) (Auto) 1.1, Basophils (%) (Auto) 0.4, Neutrophils # (Auto) 9.6 H, Lymphocytes # (Auto) 0.9 L, Monocytes # (Auto) 0.8, Eosinophils # (Auto) 0.1, Basophils # (Auto) 0.1, Calcium Level 9.2 Microbiology Microbiology 05/01/19 Blood Culture - Final, Complete NO GROWTH AFTER 5 DAYS 05/01/19 Blood Culture - Final, Complete NO GROWTH AFTER 5 DAYS 05/01/19 Blood Culture - Final, Complete NO GROWTH AFTER 5 DAYS 05/01/19 Gram Stain - Final, Complete 05/01/19 Sputum Culture - Final, Complete Yeast Like Organism EDEL APPIAH MD May 07, 2019 19:38
[2019-05-07 20:00] VITALS: BP 124/74
[2019-05-07] MEDS: clonazePAM 0.5 MG TAB PO PRN (21:23)
[2019-05-07] MEDS: ATORVASTATIN 20 MG TAB PO SCH (21:23)
[2019-05-07] MEDS: TAMSULOSIN 0.4 MG CAP PO SCH (21:24)
[2019-05-07 23:59] VITALS: BP 105/63
[2019-05-08] VITALS (7 sets, daily range): BP systolic 105–149; BP diastolic 63–88
[2019-05-08] MEDS: PIPERACILLIN/TAZOBACTAM SOD 3.375 GM in D5W MINI-BAG PLUS 50 ML IV SCH ×4 (01:42→18:00)
[2019-05-08] MEDS: IPRATROPIUM 0.5MG/ALBUTEROL 2.5MG INH SOL UD 3ML (DUONEB)(J7620) INH SCH ×6 (04:48→23:07)
[2019-05-08] MEDS: SLF 3 ML SYR IV SCH ×3 (05:53→20:44)
[2019-05-08 06:11] LABS: HEMATOCRIT 33.9 % (42.0-52.0); HEMOGLOBIN 11.4 g/dl (13.5-17.5); MEAN CORPUSCULAR HEMOGLOBIN 32.5 pg (27.0-33.0); MEAN CORPUSCULAR HGB CONC 33.6 g/dl (32.0-36.5); MEAN CORPUSCULAR VOLUME 96.6 fl (80.0-96.0); PLATELET COUNT, AUTOMATED 236 10^3/uL (150-450); RED BLOOD COUNT 3.51 10^6/uL (4.30-6.10); WHITE BLOOD COUNT 10.8 10^3/uL (4.0-10.0)
[2019-05-08 06:35] LABS: BLOOD UREA NITROGEN 29 MG/DL (7-18); CALCIUM LEVEL 8.9 MG/DL (8.8-10.2); CARBON DIOXIDE LEVEL 26 MEQ/L (21-32); CHLORIDE LEVEL 112 MEQ/L (98-107); CREATININE FOR GFR 1.13 MG/DL (0.70-1.30); GLOMERULAR FILTRATION RATE > 60.0 (>35); GLUCOSE, FASTING 113 MG/DL (70-100); POTASSIUM SERUM 3.8 MEQ/L (3.5-5.1); SODIUM LEVEL 144 MEQ/L (136-145)
[2019-05-08 06:39] LABS: EOSINOPHILS 2 % (0-5); LYMPHOCYTES 6 % (16-52); MONOCYTES 3 % (0-8); NEUTROPHILS 89 % (35-75); PLATELET ESTIMATE NORMAL (NORMAL)
[2019-05-08] MEDS: FINASTERIDE 5 MG TAB PO SCH (09:18)
[2019-05-08] MEDS: GABAPENTIN 100 MG CAP PO SCH ×2 (09:18→20:44)
[2019-05-08] MEDS: SPIRONOLACTONE 25 MG TAB PO SCH (09:18)
[2019-05-08] MEDS: ISOSORBIDE MON. (IMDUR) 30 MG XR TAB PO SCH (09:18)
[2019-05-08] MEDS: OMEPRAZOLE 20 MG CAP PO SCH (09:18)
[2019-05-08] MEDS: NICOTINE 7 MG/24 HR TRANSDERMAL TD SCH (09:19)
[2019-05-08] MEDS: ASPIRIN 81 MG ENTERIC TAB PO SCH (09:19)
[2019-05-08] MEDS: FUROSEMIDE 40 MG TAB PO SCH (09:19)
[2019-05-08] MEDS: NYSTATIN 500,000 U/5 ML SUSP UDC PO SCH ×2 (12:30→18:00)
--- NOTE | 2019-05-08 20:29 | IPNPDOC ---
Subjective Date Seen The patient was seen on 05/08/19. Time of service 7:45 PM Subjective Chief Complaint/HPI syncope Events since last encounter No acute overnight events. Objective Physical Examination General Exam: Positive: Alert, Cooperative, No Acute Distress ENT Exam: Positive: Atraumatic, Mucous membr. moist/pink Neck Exam: Negative: JVD Chest Exam: Positive: Normal air movement, Other (rhochi resolving) Heart Exam: Positive: Rate Normal, Normal S1, Normal S2 Abdomen Exam: Positive: Soft Extremity Exam: Negative: Tenderness, Swelling Psych Exam: Positive: Memory Intact Assessment /Plan Assessment is an 83 yr old M w a PMH of A fib ?, HTN, CKD III Dyslipidemia, Neuropathy, BPH, MVR, TVR, Diastolic CHF, multiple ICH, Chronic CAD s/p CABG and PCI, SIADH, Diverticulosis and stable AAA who is admitted for management of PNA. 1.Acute Hypoxic Respiratory Failure 2/2 Bilateral aspiration PNA -improving Plan: wean off O2 , c/w Vanc and Zosyn antibiotic day #7 2. Elevated Troponin -likely 2/2 acute illness / demand ischemia Plan: no acute intervention 3.Pulmonary Nodule per 's note "CT Chest possibly 2/2 inspissated pleural fluid" Plan: f/u w PCP for repeat CT on an out pt basis 4.CKD III -stable Plan;f/u BMP in AM 5.HTN / Diastolic CHF Plan: c/w current meds 6 Dyslipidemia / Chronic CAD s/p CABG and PCI Plan: c/w current meds 7 BPH Plan: c/w current meds 8 Neuropathy Plan: Gabapentin DVT px w SCDs Dispo: SNF, versus home pending discussion with patient's daughter Plan/VTE VTE Prophylaxis Ordered?: Yes VS, I&O, 24H, Fishbone Vital Signs/I&O Vital Signs Date Time Temp Pulse Resp B/P (MAP) Pulse Ox O2 Delivery O2 Flow Rate FiO2 05/08/19 20:00 98.1 60 18 133/67 (89) 94 3.0 05/08/19 07:13 Nasal Cannula I&O- Last 24 Hours up to 6 AM 05/08/19 06:00 Intake Total 1370 ml Output Total 525 ml Balance 845 ml Laboratory Data 24H LABS Laboratory Tests 2 05/08/19 05:41: Nucleated Red Blood Cells % (auto) 0.2H, Neutrophils 89H, Lymphocytes (Manual) 6L, Monocytes (Manual) 3, Eosinophils (Manual) 2, Platelet Estimate NORMAL, Red Blood Cell Morphology NORMAL, Anion Gap 6L, Glomerular Filtration Rate > 60.0, Blood Urea Nitrogen 29H, Creatinine 1.13, Sodium Level 144, Potassium Level 3.8#, Chloride Level 112H, Carbon Dioxide Level 26, Calcium Level 8.9 CBC/BMP Laboratory Tests 05/08/19 05:41 Red Blood Count 3.51 L, Mean Corpuscular Volume 96.6 H, Mean Corpuscular Hemoglobin 32.5, Mean Corpuscular Hemoglobin Concent 33.6, Red Cell Distribution Width 14.8 H, Calcium Level 8.9 Microbiology Microbiology 05/01/19 Blood Culture - Final, Complete NO GROWTH AFTER 5 DAYS 05/01/19 Blood Culture - Final, Complete NO GROWTH AFTER 5 DAYS 05/01/19 Blood Culture - Final, Complete NO GROWTH AFTER 5 DAYS 05/01/19 Gram Stain - Final, Complete 05/01/19 Sputum Culture - Final, Complete Yeast Like Organism EDEL APPIAH MD May 08, 2019 20:29
[2019-05-08] MEDS: ATORVASTATIN 20 MG TAB PO SCH (20:44)
[2019-05-08] MEDS: TAMSULOSIN 0.4 MG CAP PO SCH (20:44)
[2019-05-09] MEDS: NYSTATIN 500,000 U/5 ML SUSP UDC PO SCH ×4 (00:04→18:10)
[2019-05-09] MEDS: PIPERACILLIN/TAZOBACTAM SOD 3.375 GM in D5W MINI-BAG PLUS 50 ML IV SCH ×3 (00:04→13:00)
[2019-05-09 04:00] VITALS: BP 127/63
[2019-05-09] MEDS: IPRATROPIUM 0.5MG/ALBUTEROL 2.5MG INH SOL UD 3ML (DUONEB)(J7620) INH SCH ×5 (04:37→20:31)
[2019-05-09] MEDS: SLF 3 ML SYR IV SCH ×3 (06:11→21:03)
[2019-05-09 08:00] VITALS: BP 134/67
[2019-05-09] MEDS: SPIRONOLACTONE 25 MG TAB PO SCH (08:37)
[2019-05-09] MEDS: OMEPRAZOLE 20 MG CAP PO SCH (08:37)
[2019-05-09] MEDS: NICOTINE 7 MG/24 HR TRANSDERMAL TD SCH (08:37)
[2019-05-09] MEDS: ISOSORBIDE MON. (IMDUR) 30 MG XR TAB PO SCH (08:37)
[2019-05-09] MEDS: ASPIRIN 81 MG ENTERIC TAB PO SCH (08:37)
[2019-05-09] MEDS: GABAPENTIN 100 MG CAP PO SCH ×2 (08:37→20:59)
[2019-05-09] MEDS: FINASTERIDE 5 MG TAB PO SCH (08:37)
[2019-05-09] MEDS: FUROSEMIDE 40 MG TAB PO SCH (08:37)
--- NOTE | 2019-05-09 10:44 | DS.PDOC ---
Discharge Summary General Date of Admission May 01, 2019 at 15:25 Date of Discharge 05.09.19 Primary Care Physician: Priscila Hernandez Attending Physician: EDEL APPIAH MD Discharge Summary PROCEDURES PERFORMED DURING STAY: [None]. ADMITTING DIAGNOSES: 1. Acute hypoxic respiratory failure secondary to bilateral pneumonia. 2. Elevated troponin, likely secondary to demand ischemia DISCHARGE DIAGNOSES: 1. Acute hypoxic respiratory failure secondary to bilateral pneumonia has resolved. 2. Pulmonary nodule, cause to be determined COMPLICATIONS/CHIEF COMPLAINT: Pneumonia. HISTORY OF PRESENT ILLNESS: Per HPI this is an 83-year-old male who initially presented on the with complaints of cough, shortness of breath, malaise and weakness. Based on imaging findings vital signs and blood work. He was diagnosed with pneumonia HOSPITAL COURSE: He was admitted to the general medical floor, received IV fluids and supplemental oxygen. He received a total of 7 days of antibiotics and improved. He was diagnosed on the morning of May 09 at 9:10 AM and reported feeling well. [facility]. DISCHARGE MEDICATIONS: Please see below. ALLERGIES: Please see below. PHYSICAL EXAMINATION ON DISCHARGE: VITAL SIGNS: Please see below. GENERAL: Well-nourished, well-developed HEENT: Mucous membranes moist and pink, has temporal wasting, has a postcraniotomy scar at the right frontal temporal region NECK: Supple CARDIOVASCULAR EXAMINATION: Regular rate and rhythm. No murmurs, rubs or gallops RESPIRATORY EXAMINATION: On room air. Lungs are clear to auscultation bilaterally ABDOMINAL EXAMINATION: Abdomen is soft and nontender EXTREMITIES: Range of motion is intact times all 4 extremities SKIN: Patient has tattoos on lower arms NEUROLOGICAL EXAMINATION: Cranial nerves II-12 grossly intact, speech, not dysarthric PSYCHIATRIC EXAMINATION: Alert and oriented LABORATORY DATA: Please see below. IMAGING: Chest x-ray done on the showed cardiomegaly, a right lung infiltrate left base infiltrate, mild calcification at the aorta and a prosthetic heart valve CT of the 10th chest done on the showed similar findings to those seen on the chest x-ray PROGNOSIS: Fair ACTIVITY: [As tolerated]. DIET: Pure DISCHARGE PLAN will be transferred to custodial DISPOSITION: . DISCHARGE INSTRUCTIONS: 1. Patient should follow-up with his primary care physician within the next few weeks. 2. The patient may need a repeat CT to follow-up on the pulmonary nodules. ITEMS TO FOLLOWUP ON ON OUTPATIENT: 1. Pulmonary nodules DISCHARGE CONDITION: [Stable]. TIME SPENT ON DISCHARGE: Greater than 15 minutes. Vital Signs/I&Os Vital Signs Date Time Temp Pulse Resp B/P (MAP) Pulse Ox O2 Delivery O2 Flow Rate FiO2 05/09/19 08:37 134/67 05/09/19 08:00 97.1 79 19 94 1.0 05/08/19 07:13 Nasal Cannula I&O- Last 24 Hours up to 6 AM 05/09/19 05:59 Intake Total 1000 ml Output Total 750 ml Balance 250 ml Microbiology Microbiology 05/01/19 Blood Culture - Final, Complete NO GROWTH AFTER 5 DAYS 05/01/19 Blood Culture - Final, Complete NO GROWTH AFTER 5 DAYS 05/01/19 Blood Culture - Final, Complete NO GROWTH AFTER 5 DAYS 05/01/19 Gram Stain - Final, Complete 05/01/19 Sputum Culture - Final, Complete Yeast Like Organism Discharge Medications Scheduled Aspirin (Ecotrin) 81 Mg Tablet.dr, 81 MG PO DAILY, (Reported) Atorvastatin Calcium (Atorvastatin Calcium) 40 Mg Tab, 40 MG PO QHS, (Reported) Finasteride (Finasteride) 5 Mg Tab, 5 MG PO DAILY, (Reported) Furosemide (Furosemide) 40 Mg Tab, 40 MG PO DAILY, (Reported) Gabapentin (Gabapentin) 100 Mg Cap, 100 MG PO DAILY, (Reported) Gabapentin (Gabapentin) 100 Mg Capsule, 200 MG PO QHS, (Reported) Isosorbide Mononitrate (Isosorbide Mononitrate ER) 30 Mg Tab, 30 MG PO DAILY, (R eported) Omeprazole (Omeprazole) 20 Mg Cap, 20 MG PO DAILY, (Reported) Spironolactone (Spironolactone) 25 Mg Tab, 25 MG PO DAILY, (Reported) Tamsulosin Hcl (Tamsulosin HCl) 0.4 Mg Capsule, 0.4 MG PO QHS, (Reported) Scheduled PRN Acetaminophen (Acetaminophen ER) 650 Mg Tablet.er, 650 MG PO Q4H PRN for PAIN, (Reported) Clonazepam (Clonazepam) 0.5 Mg Tab, 0.5 MG PO BID PRN for ANXIETY, (Reported) Allergies Coded Allergies: lovastatin (Verified Allergy, Intermediate, hives, 05/01/19) EDEL APPIAH MD May 09, 2019 10:44
[2019-05-09 12:00] VITALS: BP 127/68
[2019-05-09 15:30] VITALS: BP 127/70
[2019-05-09] MEDS: ATORVASTATIN 20 MG TAB PO SCH (20:59)
[2019-05-09] MEDS: TAMSULOSIN 0.4 MG CAP PO SCH (20:59)
[2019-05-09 22:00] VITALS: BP 124/68
[2019-05-10] MEDS: IPRATROPIUM 0.5MG/ALBUTEROL 2.5MG INH SOL UD 3ML (DUONEB)(J7620) INH SCH ×6 (04:00→20:14)
[2019-05-10] MEDS: SLF 3 ML SYR IV SCH ×3 (04:46→22:00)
[2019-05-10] MEDS: NYSTATIN 500,000 U/5 ML SUSP UDC PO SCH ×5 (05:18→23:55)
[2019-05-10 06:00] VITALS: BP 130/60
[2019-05-10] MEDS: ASPIRIN 81 MG ENTERIC TAB PO SCH (08:29)
[2019-05-10] MEDS: GABAPENTIN 100 MG CAP PO SCH ×2 (08:29→22:09)
[2019-05-10] MEDS: SPIRONOLACTONE 25 MG TAB PO SCH (08:31)
[2019-05-10] MEDS: OMEPRAZOLE 20 MG CAP PO SCH (08:31)
[2019-05-10] MEDS: ISOSORBIDE MON. (IMDUR) 30 MG XR TAB PO SCH (08:31)
[2019-05-10] MEDS: FUROSEMIDE 40 MG TAB PO SCH (08:31)
[2019-05-10] MEDS: NICOTINE 7 MG/24 HR TRANSDERMAL TD SCH (08:32)
[2019-05-10] MEDS: FINASTERIDE 5 MG TAB PO SCH (08:32)
--- NOTE | 2019-05-10 09:17 | IPNPDOC ---
Subjective Date Seen The patient was seen on 05/10/19. at 825am Subjective Chief Complaint/HPI syncope Events since last encounter The patient's discharge was deferred from yesterday to today to complete the transfer arrangements. Objective Physical Examination General Exam: Positive: Alert, Cooperative, No Acute Distress ENT Exam: Positive: Atraumatic, Mucous membr. moist/pink, Other ENT (NC in place) Neck Exam: Negative: JVD Chest Exam: Positive: Normal air movement, Diminished Heart Exam: Positive: Rate Normal, Normal S1, Normal S2 Abdomen Exam: Positive: Soft Extremity Exam: Negative: Tenderness, Swelling Psych Exam: Positive: Memory Intact Assessment /Plan Assessment is an 83 yr old M w a PMH of A fib ?, HTN, CKD III Dyslipidemia, Neuropathy, BPH, MVR, TVR, Diastolic CHF, multiple ICH, Chronic CAD s/p CABG and PCI, SIADH, Diverticulosis and stable AAA who was admitted for management of PNA; he will be transferred to a SNF for rehab. 1.Acute Hypoxic Respiratory Failure 2/2 Bilateral aspiration PNA -resolved -completed a 7 day course of abx Plan: wean off O2 2. Elevated Troponin -likely 2/2 acute illness / demand ischemia Plan: no acute intervention 3.Pulmonary Nodule per 's note "CT Chest possibly 2/2 inspissated pleural fluid" Plan: f/u w PCP for repeat CT on an out pt basis 4.CKD III -stable Plan;f/u BMP in AM 5.HTN / Diastolic CHF Plan: c/w current meds 6 Dyslipidemia / Chronic CAD s/p CABG and PCI Plan: c/w current meds 7 BPH Plan: c/w current meds 8 Neuropathy Plan: Gabapentin 9.Debility/Deconditioning Plan: per PT transfer to SNF for rehab DVT px w SCDs Dispo: SNF for rehab today Plan/VTE VTE Prophylaxis Ordered?: Yes VS, I&O, 24H, Fishbone Vital Signs/I&O Vital Signs Date Time Temp Pulse Resp B/P (MAP) Pulse Ox O2 Delivery O2 Flow Rate FiO2 05/10/19 08:31 126/69 05/10/19 06:00 96.9 76 18 93 1.0 05/08/19 07:13 Nasal Cannula I&O- Last 24 Hours up to 6 AM 05/10/19 05:59 Intake Total 600 ml Output Total 300 ml Balance 300 ml Laboratory Data Microbiology Microbiology 05/01/19 Blood Culture - Final, Complete NO GROWTH AFTER 5 DAYS 05/01/19 Blood Culture - Final, Complete NO GROWTH AFTER 5 DAYS 05/01/19 Blood Culture - Final, Complete NO GROWTH AFTER 5 DAYS 05/01/19 Gram Stain - Final, Complete 05/01/19 Sputum Culture - Final, Complete Yeast Like Organism EDEL APPIAH MD May 10, 2019 09:17
[2019-05-10 14:00] VITALS: BP 109/54
[2019-05-10 22:00] VITALS: BP 135/75
[2019-05-10] MEDS: ATORVASTATIN 20 MG TAB PO SCH (22:09)
[2019-05-10] MEDS: TAMSULOSIN 0.4 MG CAP PO SCH (22:10)
[2019-05-11] MEDS: NYSTATIN 500,000 U/5 ML SUSP UDC PO SCH ×3 (05:46→17:45)
[2019-05-11 06:00] VITALS: BP 146/74
[2019-05-11] MEDS: IPRATROPIUM 0.5MG/ALBUTEROL 2.5MG INH SOL UD 3ML (DUONEB)(J7620) INH SCH ×6 (07:36→23:04)
[2019-05-11] MEDS: FINASTERIDE 5 MG TAB PO SCH (09:30)
[2019-05-11] MEDS: NICOTINE 7 MG/24 HR TRANSDERMAL TD SCH (09:30)
[2019-05-11] MEDS: ISOSORBIDE MON. (IMDUR) 30 MG XR TAB PO SCH (09:31)
[2019-05-11] MEDS: SPIRONOLACTONE 25 MG TAB PO SCH (09:31)
[2019-05-11] MEDS: OMEPRAZOLE 20 MG CAP PO SCH (09:31)
[2019-05-11] MEDS: GABAPENTIN 100 MG CAP PO SCH ×2 (09:31→20:13)
[2019-05-11] MEDS: ASPIRIN 81 MG ENTERIC TAB PO SCH (09:32)
[2019-05-11] MEDS: FUROSEMIDE 40 MG TAB PO SCH (09:32)
[2019-05-11 09:54] VITALS: BP 114/56
[2019-05-11 13:19] VITALS: BP 112/59
[2019-05-11] MEDS: ACETAMINOPHEN TAB 650MG DOSE (2X325MG) PO PRN (17:54)
[2019-05-11] MEDS: TAMSULOSIN 0.4 MG CAP PO SCH (20:13)
[2019-05-11] MEDS: ATORVASTATIN 20 MG TAB PO SCH (20:13)
[2019-05-11 22:00] VITALS: BP 125/60
[2019-05-12] MEDS: NYSTATIN 500,000 U/5 ML SUSP UDC PO SCH ×5 (01:24→23:38)
[2019-05-12] MEDS: IPRATROPIUM 0.5MG/ALBUTEROL 2.5MG INH SOL UD 3ML (DUONEB)(J7620) INH SCH ×5 (02:23→20:28)
[2019-05-12 06:00] VITALS: BP 118/57
[2019-05-12] MEDS: FINASTERIDE 5 MG TAB PO SCH (09:10)
[2019-05-12] MEDS: NICOTINE 7 MG/24 HR TRANSDERMAL TD SCH (09:10)
[2019-05-12] MEDS: SPIRONOLACTONE 25 MG TAB PO SCH (09:12)
[2019-05-12] MEDS: ISOSORBIDE MON. (IMDUR) 30 MG XR TAB PO SCH (09:12)
[2019-05-12] MEDS: ASPIRIN 81 MG ENTERIC TAB PO SCH (09:12)
[2019-05-12] MEDS: GABAPENTIN 100 MG CAP PO SCH ×2 (09:13→21:08)
[2019-05-12] MEDS: FUROSEMIDE 40 MG TAB PO SCH (09:13)
[2019-05-12] MEDS: OMEPRAZOLE 20 MG CAP PO SCH (09:13)
[2019-05-12 14:00] VITALS: BP 120/64
[2019-05-12] MEDS: ATORVASTATIN 20 MG TAB PO SCH (21:08)
[2019-05-12] MEDS: TAMSULOSIN 0.4 MG CAP PO SCH (21:08)
[2019-05-12] MEDS: ACETAMINOPHEN TAB 650MG DOSE (2X325MG) PO PRN (21:08)
[2019-05-12 22:00] VITALS: BP 125/62
[2019-05-13] MEDS: IPRATROPIUM 0.5MG/ALBUTEROL 2.5MG INH SOL UD 3ML (DUONEB)(J7620) INH SCH ×6 (04:00→20:00)
[2019-05-13] MEDS: NYSTATIN 500,000 U/5 ML SUSP UDC PO SCH (05:31)
[2019-05-13 06:00] VITALS: BP 108/53
[2019-05-13] MEDS: FINASTERIDE 5 MG TAB PO SCH (08:36)
[2019-05-13] MEDS: ACETAMINOPHEN TAB 650MG DOSE (2X325MG) PO PRN (08:36)
[2019-05-13] MEDS: GABAPENTIN 100 MG CAP PO SCH ×2 (08:38→20:56)
[2019-05-13] MEDS: ISOSORBIDE MON. (IMDUR) 30 MG XR TAB PO SCH (08:38)
[2019-05-13] MEDS: NICOTINE 7 MG/24 HR TRANSDERMAL TD SCH (08:38)
[2019-05-13] MEDS: FUROSEMIDE 40 MG TAB PO SCH (08:38)
[2019-05-13] MEDS: OMEPRAZOLE 20 MG CAP PO SCH (08:38)
[2019-05-13] MEDS: SPIRONOLACTONE 25 MG TAB PO SCH (08:38)
[2019-05-13] MEDS: ASPIRIN 81 MG ENTERIC TAB PO SCH (08:38)
[2019-05-13 09:04] LABS: BASO # 0.1 10^3/uL (0.0-0.2); BASO % 0.4 % (0.0-1.0); EOS # 0.3 10^3/uL (0.0-0.50); EOS % 2.2 % (0.0-3.0); HEMATOCRIT 35.6 % (42.0-52.0); HEMOGLOBIN 11.6 g/dl (13.5-17.5); LYMPH % 8.6 % (24.0-44.0); MEAN CORPUSCULAR HEMOGLOBIN 32.9 pg (27.0-33.0); MEAN CORPUSCULAR HGB CONC 32.6 g/dl (32.0-36.5); MEAN CORPUSCULAR VOLUME 100.8 fl (80.0-96.0); MONO # 0.5 10^3/uL (0.0-0.8); MONO % 4.7 % (0.0-5.0); NEUTROPHILS # 9.6 10^3/uL (1.8-7.7); PLATELET COUNT, AUTOMATED 335 10^3/uL (150-450); RED BLOOD COUNT 3.53 10^6/uL (4.30-6.10); WHITE BLOOD COUNT 11.6 10^3/uL (4.0-10.0)
[2019-05-13 09:51] LABS: BLOOD UREA NITROGEN 18 MG/DL (7-18); CALCIUM LEVEL 8.6 MG/DL (8.8-10.2); CARBON DIOXIDE LEVEL 22 MEQ/L (21-32); CHLORIDE LEVEL 108 MEQ/L (98-107); CREATININE FOR GFR 1.11 MG/DL (0.70-1.30); GLOMERULAR FILTRATION RATE > 60.0 (>35); GLUCOSE, FASTING 102 MG/DL (70-100); SODIUM LEVEL 138 MEQ/L (136-145)
[2019-05-13] MEDS: NYSTATIN 500,000 U/5 ML SUSP UDC SS SCH ×2 (12:57→18:20)
--- NOTE | 2019-05-13 17:14 | IPNPDOC ---
Subjective Date Seen The patient was seen on 05/13/19. Time of service 10:15 AM Subjective Chief Complaint/HPI Syncope Events since last encounter The patient denies any acute complaints, he is aware that his transfers pending bed availability. Objective Physical Examination General Exam: Positive: Alert, Cooperative, No Acute Distress ENT Exam: Positive: Atraumatic, Mucous membr. moist/pink, Other ENT (NC in place) Neck Exam: Negative: JVD Chest Exam: Positive: Normal air movement, Diminished Heart Exam: Positive: Rate Normal, Normal S1, Normal S2 Abdomen Exam: Positive: Soft, Other (PEG tube in place) Extremity Exam: Negative: Tenderness, Swelling Skin Exam: Positive: Other skin issue (tatoos) Psych Exam: Positive: Memory Intact Assessment /Plan Assessment is an 83 yr old M w a PMH of A fib ?, HTN, CKD III Dyslipidemia, Neuropathy, BPH, MVR, TVR, Diastolic CHF, multiple ICH, Chronic CAD s/p CABG and PCI, SIADH, Diverticulosis and stable AAA who was admitted for management of PNA; he will be transferred to a SNF for rehab. 1., Chronic oxygen-dependent respiratory failure Acute Hypoxic Respiratory Failure 2/2 Bilateral aspiration PNA has resolved -completed a 7 day course of abx Plan: wean off O2 as tolerated 2. Elevated Troponin -likely 2/2 acute illness / demand ischemia Plan: no acute intervention 3.Pulmonary Nodule per 's note "CT Chest possibly 2/2 inspissated pleural fluid" Plan: f/u w PCP for repeat CT on an out pt basis 4.CKD III -stable Plan;f/u BMP weekly 5.HTN / Diastolic CHF Plan: c/w current meds 6 Dyslipidemia / Chronic CAD s/p CABG and PCI Plan: c/w current meds 7 BPH Plan: c/w current meds 8 Neuropathy Plan: Gabapentin 9.Debility/Deconditioning Plan: per PT transfer to SNF for rehab DVT px w SCDs Dispo: SNF for rehab, possibly on Plan/VTE VTE Prophylaxis Ordered?: Yes VS, I&O, 24H, Fishbone Vital Signs/I&O Vital Signs Date Time Temp Pulse Resp B/P (MAP) Pulse Ox O2 Delivery O2 Flow Rate FiO2 05/13/19 08:38 115/55 05/13/19 06:00 96.3 68 18 96 05/12/19 22:00 1.0 05/08/19 07:13 Nasal Cannula I&O- Last 24 Hours up to 6 AM 05/13/19 05:59 Intake Total 840 ml Output Total 300 ml Balance 540 ml Laboratory Data 24H LABS Laboratory Tests 2 05/13/19 08:41: Immature Granulocyte % (Auto) 1.1, White Blood Count 11.6H, Red Blood Count 3.53L, Hemoglobin 11.6L, Hematocrit 35.6L, Mean Corpuscular Volume 100.8H, Mean Corpuscular Hemoglobin 32.9, Mean Corpuscular Hemoglobin Concent 32.6, Red Cell Distribution Width 14.2, Platelet Count 335, Neutrophils (%) (Auto) 83.0H, Lymphocytes (%) (Auto) 8.6L, Monocytes (%) (Auto) 4.7, Eosinophils (%) (Auto) 2.2, Basophils (%) (Auto) 0.4, Neutrophils # (Auto) 9.6H, Lymphocytes # (Auto) 1.0L, Monocytes # (Auto) 0.5, Eosinophils # (Auto) 0.3, Basophils # (Auto) 0.1, Nucleated Red Blood Cells % (auto) 0.0, Anion Gap 8, Glomerular Filtration Rate > 60.0, Blood Urea Nitrogen 18, Creatinine 1.11, Sodium Level 138, Potassium Level 4.0, Chloride Level 108H, Carbon Dioxide Level 22, Calcium Level 8.6L CBC/BMP Laboratory Tests 05/13/19 08:41 Red Blood Count 3.53 L, Mean Corpuscular Volume 100.8 H, Mean Corpuscular Hemoglobin 32.9, Mean Corpuscular Hemoglobin Concent 32.6, Red Cell Distribution Width 14.2, Neutrophils (%) (Auto) 83.0 H, Lymphocytes (%) (Auto) 8.6 L, Monocytes (%) (Auto) 4.7, Eosinophils (%) (Auto) 2.2, Basophils (%) (Auto) 0.4, Neutrophils # (Auto) 9.6 H, Lymphocytes # (Auto) 1.0 L, Monocytes # (Auto) 0.5, Eosinophils # (Auto) 0.3, Basophils # (Auto) 0.1, Calcium Level 8.6 L EDEL APPIAH MD May 13, 2019 17:14
[2019-05-13] MEDS: ATORVASTATIN 20 MG TAB PO SCH (20:56)
[2019-05-13] MEDS: TAMSULOSIN 0.4 MG CAP PO SCH (20:56)
[2019-05-14] MEDS: NYSTATIN 500,000 U/5 ML SUSP UDC SS SCH ×5 (00:13→23:46)
[2019-05-14] MEDS: IPRATROPIUM 0.5MG/ALBUTEROL 2.5MG INH SOL UD 3ML (DUONEB)(J7620) INH SCH ×6 (04:00→20:34)
[2019-05-14 06:00] VITALS: BP 96/58
[2019-05-14 07:25] VITALS: BP 108/53
[2019-05-14] MEDS: NICOTINE 7 MG/24 HR TRANSDERMAL TD SCH (08:43)
[2019-05-14] MEDS: ASPIRIN 81 MG ENTERIC TAB PO SCH (08:43)
[2019-05-14] MEDS: FINASTERIDE 5 MG TAB PO SCH (08:43)
[2019-05-14] MEDS: FUROSEMIDE 40 MG TAB PO SCH (08:43)
[2019-05-14] MEDS: SPIRONOLACTONE 25 MG TAB PO SCH (08:44)
[2019-05-14] MEDS: ISOSORBIDE MON. (IMDUR) 30 MG XR TAB PO SCH (08:44)
[2019-05-14] MEDS: OMEPRAZOLE 20 MG CAP PO SCH (08:44)
[2019-05-14] MEDS: ACETAMINOPHEN TAB 650MG DOSE (2X325MG) PO PRN (08:44)
[2019-05-14] MEDS: GABAPENTIN 100 MG CAP PO SCH ×2 (08:44→20:54)
[2019-05-14] MEDS: SENNA 8.6 MG TAB (SENOKOT) PO PRN (08:46)
[2019-05-14] MEDS: MOM 30ML SUSPENSION UDC PO PRN (12:33)
[2019-05-14] MEDS: MIRALAX *UNIT DOSE* 17GM PACKET PO SCH (12:33)
[2019-05-14 14:00] VITALS: BP 115/59
[2019-05-14] MEDS ORDERED: E-Z-PAQUE 96% w/w SUSP 176GM BTL As Ordered ONE (14:15)
[2019-05-14] MEDS ORDERED: BARIUM SULFATE 700 MG TABLET (E-Z-DISK) As Ordered ONE (14:15)
[2019-05-14] MEDS ORDERED: VARIBAR NECTAR 40% w/v 240ML SUSP BTL As Ordered ONE (14:16)
[2019-05-14] MEDS ORDERED: VARIBAR PUDDING 40% w/v 230ML TUBE As Ordered ONE (14:16)
--- NOTE | 2019-05-14 15:13 | NUR ---
Pt seen for Modified Barium Swallow Evaluation d/t dx of pneumonia w/rt lung base infiltrates. Pt is now more alert and able to follow directions. Pt presents with mild-moderate oropharyngeal phase dysphagia as characterized by: decreased chewing, decreased oral transit, aspiration of thin liquids with delayed cough. Pt at baseline does not eat meats or anything chewy or crunchy. Recommend: Level 2 solids (NDD) and nectar thick liquids. Meds 1 at a time in puree assist. Pt must be supervised and foods cut small (< dime size). Please provide extra sauce/gravy/condiments. Addendum: 05/14/19 at 1519 by MIKE CORRAL [facility] Amended: Links added.
--- NOTE | 2019-05-14 16:44 | REP ---
COOKIE SWALLOW The procedure was performed under the direct supervision of Dr. Wilkes. The procedure was performed with Heidi Brandon from speech pathology present. 5 ml aliquots of nectar, pudding, thin, mixed fruit, soft solid consistency barium as well as a barium pill were administered. With thin consistency barium there is aspiration with cough response. The detailed report of this examination will be provided by speech pathology. 1.6 minutes of fluoroscopy time was utilized for this procedure. Reviewed by LOIS Hensley 05/14/2019 04:29 P Electronically Signed by Merrill Wilkes MD 05/14/2019 04:35 P
[2019-05-14] MEDS: TAMSULOSIN 0.4 MG CAP PO SCH (20:54)
[2019-05-14] MEDS: ATORVASTATIN 20 MG TAB PO SCH (20:54)
[2019-05-15] MEDS: IPRATROPIUM 0.5MG/ALBUTEROL 2.5MG INH SOL UD 3ML (DUONEB)(J7620) INH SCH ×7 (04:00→23:48)
[2019-05-15] MEDS: NYSTATIN 500,000 U/5 ML SUSP UDC SS SCH ×4 (05:39→23:39)
[2019-05-15 06:00] VITALS: BP 126/70
[2019-05-15] MEDS: GABAPENTIN 100 MG CAP PO SCH ×2 (09:54→20:06)
[2019-05-15] MEDS: SPIRONOLACTONE 25 MG TAB PO SCH (09:54)
[2019-05-15] MEDS: FUROSEMIDE 40 MG TAB PO SCH (09:54)
[2019-05-15] MEDS: ASPIRIN 81 MG ENTERIC TAB PO SCH (09:55)
[2019-05-15] MEDS: OMEPRAZOLE 20 MG CAP PO SCH (09:55)
[2019-05-15] MEDS: ISOSORBIDE MON. (IMDUR) 30 MG XR TAB PO SCH (09:55)
[2019-05-15] MEDS: FINASTERIDE 5 MG TAB PO SCH (09:55)
[2019-05-15] MEDS: NICOTINE 7 MG/24 HR TRANSDERMAL TD SCH (09:56)
[2019-05-15] MEDS: MIRALAX *UNIT DOSE* 17GM PACKET PO SCH (09:56)
--- NOTE | 2019-05-15 11:20 | IPNPDOC ---
Subjective Date Seen The patient was seen on 05/15/19. time of service 10:15am Subjective Chief Complaint/HPI syncope Events since last encounter The patient denies having any acute c/o today. Objective Physical Examination General Exam: Positive: Alert, Cooperative, No Acute Distress ENT Exam: Positive: Atraumatic, Mucous membr. moist/pink Neck Exam: Negative: JVD Chest Exam: Positive: Normal air movement, Diminished Heart Exam: Positive: Rate Normal, Normal S1, Normal S2 Abdomen Exam: Positive: Soft, Other (PEG tube in place) Extremity Exam: Negative: Tenderness, Swelling Skin Exam: Positive: Other skin issue (tatoos) Psych Exam: Positive: Mood NL, Memory Intact Assessment /Plan Assessment is an 83 yr old M w a PMH of A fib ?, HTN, CKD III Dyslipidemia, Neuropathy, BPH, MVR, TVR, Diastolic CHF, multiple ICH, Chronic CAD s/p CABG and PCI, SIADH, Diverticulosis and stable AAA who was admitted for management of PN A; he will be transferred to a SNF for rehab. 1., Acute oxygen-dependent respiratory failure -resolved Acute Hypoxic Respiratory Failure 2/2 Bilateral aspiration PNA has resolved -completed a 7 day course of abx 2. Elevated Troponin -likely 2/2 acute illness / demand ischemia Plan: no acute intervention 3.Pulmonary Nodule per 's note "nodule on CT Chest possibly 2/2 inspissated pleural fluid" Plan: f/u w PCP for repeat CT on an out pt basis 4.CKD III -stable Plan;f/u BMP weekly 5.HTN / Diastolic CHF Plan: c/w current meds 6 Dyslipidemia / Chronic CAD s/p CABG and PCI Plan: c/w current meds 7 BPH Plan: c/w current meds 8 Neuropathy Plan: Gabapentin 9.Debility/Deconditioning Plan: per PT transfer to SNF for rehab DVT px w SCDs Dispo: SNF for rehab, Plan/VTE VTE Prophylaxis Ordered?: Yes VS, I&O, 24H, Fishbone Vital Signs/I&O Vital Signs Date Time Temp Pulse Resp B/P (MAP) Pulse Ox O2 Delivery O2 Flow Rate FiO2 05/15/19 09:55 128/72 05/15/19 06:00 98.1 67 15 97 05/12/19 22:00 1.0 I&O- Last 24 Hours up to 6 AM 7/31/19 06:00 Intake Total 640 ml Balance 640 ml EDEL APPIAH MD May 15, 2019 11:20
[2019-05-15] MEDS: SENNA 8.6 MG TAB (SENOKOT) PO PRN (12:49)
[2019-05-15] MEDS: MOM 30ML SUSPENSION UDC PO PRN (14:03)
[2019-05-15] MEDS: ACETAMINOPHEN TAB 650MG DOSE (2X325MG) PO PRN (19:31)
[2019-05-15] MEDS: ATORVASTATIN 20 MG TAB PO SCH (20:06)
[2019-05-15] MEDS: TAMSULOSIN 0.4 MG CAP PO SCH (20:06)
[2019-05-15 22:00] VITALS: BP 122/61
[2019-05-16] MEDS: IPRATROPIUM 0.5MG/ALBUTEROL 2.5MG INH SOL UD 3ML (DUONEB)(J7620) INH SCH ×3 (04:00→11:41)
[2019-05-16] MEDS: NYSTATIN 500,000 U/5 ML SUSP UDC SS SCH ×2 (05:24→11:58)
[2019-05-16 06:00] VITALS: BP 122/62
[2019-05-16 08:42] VITALS: BP 118/61
[2019-05-16] MEDS: ISOSORBIDE MON. (IMDUR) 30 MG XR TAB PO SCH (08:42)
[2019-05-16] MEDS: GABAPENTIN 100 MG CAP PO SCH (08:42)
[2019-05-16] MEDS: FUROSEMIDE 40 MG TAB PO SCH (08:42)
[2019-05-16] MEDS: MIRALAX *UNIT DOSE* 17GM PACKET PO SCH (08:42)
[2019-05-16] MEDS: SPIRONOLACTONE 25 MG TAB PO SCH (08:42)
[2019-05-16] MEDS: ASPIRIN 81 MG ENTERIC TAB PO SCH (08:42)
[2019-05-16] MEDS: FINASTERIDE 5 MG TAB PO SCH (08:43)
[2019-05-16] MEDS: NICOTINE 7 MG/24 HR TRANSDERMAL TD SCH (08:43)
[2019-05-16] MEDS: OMEPRAZOLE 20 MG CAP PO SCH (08:43)
[2019-05-16] MEDS: ACETAMINOPHEN TAB 650MG DOSE (2X325MG) PO PRN (08:43)
[2019-05-16] MEDS: MOM 30ML SUSPENSION UDC PO PRN (09:52)
[2019-05-16] MEDS: SENNA 8.6 MG TAB (SENOKOT) PO PRN (09:52)
[2019-05-16] MEDS ORDERED: FLEET ENEMA PR PRN (10:00)
== END 2019-05-16 12:50 | DRG 193 ==
LOC: M ED 10:38 → EDBD 10:38 → M ED INP 15:25 → EEVIPCON 15:25 → M ICU 19:55 → M PCU 05-02 22:27 → M MSPAV 05-09 15:27
PROVIDERS: ADMIT Hospitalist; ATTEND Hospitalist
DX: J18.0 Bronchopneumonia, unspecified organism (principal); J96.21 Acute and chronic respiratory failure with hypoxia; I50.32 Chronic diastolic (congestive) heart failure; I13.0 Hypertensive heart and chronic kidney disease with heart failure and stage 1 through stage 4 chronic kidney disease, or unspecified chronic kidney disease; I25.10 Atherosclerotic heart disease of native coronary artery without angina pectoris; E78.5 Hyperlipidemia, unspecified; H40.9 Unspecified glaucoma; N40.0 Benign prostatic hyperplasia without lower urinary tract symptoms; I25.2 Old myocardial infarction; K57.30 Diverticulosis of large intestine without perforation or abscess without bleeding; I71.4 Abdominal aortic aneurysm, without rupture; Z95.5 Presence of coronary angioplasty implant and graft; Z95.2 Presence of prosthetic heart valve; Z87.891 Personal history of nicotine dependence; Z79.82 Long term (current) use of aspirin; Z79.899 Other long term (current) drug therapy; Z88.8 Allergy status to other drugs, medicaments and biological substances; N18.3 Chronic kidney disease, stage 3 (moderate); G62.9 Polyneuropathy, unspecified

== ENCOUNTER → 2019-05-21 | Outpatient (REF) ==
[~2019-05-21] MED LIST changes: +ACET650T15 PO; +ECOT81TA5 PO; +TAMS1CAP17 PO
[2019-05-21 10:43] LABS: HEMATOCRIT 37.7 % (42.0-52.0); HEMOGLOBIN 12.1 g/dl (13.5-17.5); MEAN CORPUSCULAR HEMOGLOBIN 31.8 pg (27.0-33.0); MEAN CORPUSCULAR HGB CONC 32.1 g/dl (32.0-36.5); MEAN CORPUSCULAR VOLUME 99.2 fl (80.0-96.0); PLATELET COUNT, AUTOMATED 291 10^3/uL (150-450); WHITE BLOOD COUNT 7.5 10^3/uL (4.0-10.0)
[2019-05-21 11:07] LABS: BLOOD UREA NITROGEN 14 MG/DL (7-18); CALCIUM LEVEL 8.8 MG/DL (8.8-10.2); CARBON DIOXIDE LEVEL 29 MEQ/L (21-32); CHLORIDE LEVEL 101 MEQ/L (98-107); CREATININE FOR GFR 1.07 MG/DL (0.70-1.30); GLOMERULAR FILTRATION RATE > 60.0 (>35); GLUCOSE, FASTING 83 MG/DL (70-100); POTASSIUM SERUM 4.9 MEQ/L (3.5-5.1); SODIUM LEVEL 136 MEQ/L (136-145)
== END ==
PROVIDERS: ATTEND Family Medicine
DX: Z79.899 Other long term (current) drug therapy (principal)

== ENCOUNTER → 2019-05-28 | Outpatient (REF) ==
[2019-05-28 09:48] LABS: HEMATOCRIT 37.1 % (42.0-52.0); HEMOGLOBIN 12.3 g/dl (13.5-17.5); MEAN CORPUSCULAR HEMOGLOBIN 32.4 pg (27.0-33.0); MEAN CORPUSCULAR HGB CONC 33.2 g/dl (32.0-36.5); MEAN CORPUSCULAR VOLUME 97.6 fl (80.0-96.0); PLATELET COUNT, AUTOMATED 212 10^3/uL (150-450); WHITE BLOOD COUNT 7.4 10^3/uL (4.0-10.0)
[2019-05-28 10:22] LABS: ALBUMIN 3.3 GM/DL (3.2-5.2); ALT/SGPT 14 U/L (12-78); BILIRUBIN,TOTAL 0.8 MG/DL (0.2-1.0); BLOOD UREA NITROGEN 17 MG/DL (7-18); CALCIUM LEVEL 9.1 MG/DL (8.8-10.2); CARBON DIOXIDE LEVEL 28 MEQ/L (21-32); CHLORIDE LEVEL 101 MEQ/L (98-107); CREATININE FOR GFR 1.17 MG/DL (0.70-1.30); GLOMERULAR FILTRATION RATE > 60.0 (>35); GLUCOSE, FASTING 101 MG/DL (70-100); POTASSIUM SERUM 4.4 MEQ/L (3.5-5.1); SODIUM LEVEL 138 MEQ/L (136-145); TOTAL PROTEIN 7.3 GM/DL (6.4-8.2)
== END ==
PROVIDERS: ATTEND Family Medicine
DX: R10.9 Unspecified abdominal pain (principal)

== ENCOUNTER → 2019-05-28 | Outpatient (REF) ==
--- NOTE | 2019-05-28 19:47 | REP ---
REASON: Abdominal pain. Portable KUB shows intestinal gas pattern to be nonspecific. The organ silhouette so far as delineated are within normal limits. There is no evidence of free air on this limited exam. Chronic changes are seen involving the imaged spine and hips. IMPRESSION: Nonspecific intestinal gas pattern. No evidence of intestinal obstruction. Electronically Signed by Zack Escudero DO 05/29/2019 09:34 A
== END ==
PROVIDERS: ATTEND Family Medicine
DX: R10.9 Unspecified abdominal pain (principal)

== ENCOUNTER → 2019-05-29 | Outpatient (REF) ==
[2019-05-29 10:22] LABS: HEMATOCRIT 36.8 % (42.0-52.0); HEMOGLOBIN 12.2 g/dl (13.5-17.5); MEAN CORPUSCULAR HEMOGLOBIN 32.3 pg (27.0-33.0); MEAN CORPUSCULAR HGB CONC 33.2 g/dl (32.0-36.5); MEAN CORPUSCULAR VOLUME 97.4 fl (80.0-96.0); PLATELET COUNT, AUTOMATED 189 10^3/uL (150-450); RED BLOOD COUNT 3.78 10^6/uL (4.30-6.10); WHITE BLOOD COUNT 7.1 10^3/uL (4.0-10.0)
== END ==
PROVIDERS: ATTEND Family Medicine
DX: R10.9 Unspecified abdominal pain (principal); I48.91 Unspecified atrial fibrillation

== ENCOUNTER → 2019-06-05 | Outpatient (REF) ==
[2019-06-05 08:27] LABS: HEMATOCRIT 32.8 % (42.0-52.0); HEMOGLOBIN 10.9 g/dl (13.5-17.5); MEAN CORPUSCULAR HEMOGLOBIN 32.1 pg (27.0-33.0); MEAN CORPUSCULAR HGB CONC 33.2 g/dl (32.0-36.5); MEAN CORPUSCULAR VOLUME 96.5 fl (80.0-96.0); PLATELET COUNT, AUTOMATED 162 10^3/uL (150-450); WHITE BLOOD COUNT 6.2 10^3/uL (4.0-10.0)
[2019-06-05 08:47] LABS: BLOOD UREA NITROGEN 14 MG/DL (7-18); CALCIUM LEVEL 8.5 MG/DL (8.8-10.2); CARBON DIOXIDE LEVEL 27 MEQ/L (21-32); CHLORIDE LEVEL 102 MEQ/L (98-107); CREATININE FOR GFR 0.91 MG/DL (0.70-1.30); GLOMERULAR FILTRATION RATE > 60.0 (>35); GLUCOSE, FASTING 91 MG/DL (70-100); POTASSIUM SERUM 3.6 MEQ/L (3.5-5.1); SODIUM LEVEL 138 MEQ/L (136-145)
== END ==
PROVIDERS: ATTEND Physician Assistant

== ENCOUNTER → 2019-06-06 | Outpatient (REF) ==
--- NOTE | 2019-06-06 13:21 | REP ---
REASON: Abdominal pain. PRIORS: None. The intestinal gas pattern is nonspecific. Vague calcific densities are seen potentially superimposed over each nephric silhouette more clear on the right than left due to overlying intestinal content. Renal calculi cannot be excluded. Chronic changes seen involving the spine and hips. IMPRESSION: Possible renal calculi. Consider noncontrast enhanced stone protocol CT if clinically relevant. Electronically Signed by Zack Escudero DO 06/06/2019 01:40 P
== END ==
PROVIDERS: ATTEND Family Medicine
DX: R10.9 Unspecified abdominal pain (principal)

== ENCOUNTER → 2019-06-12 | Outpatient (REF) ==
[~2019-06-12] MED LIST changes: +CLON0.5T2 PO; -CLON0.5T8 PO; +OMEP1CAP73 PO; -OMEP20CA4 PO
[2019-06-12 08:55] LABS: HEMOGLOBIN 10.5 g/dl (13.5-17.5); MEAN CORPUSCULAR HEMOGLOBIN 32.5 pg (27.0-33.0); MEAN CORPUSCULAR HGB CONC 33.9 g/dl (32.0-36.5); PLATELET COUNT, AUTOMATED 225 10^3/uL (150-450); RED BLOOD COUNT 3.23 10^6/uL (4.30-6.10); WHITE BLOOD COUNT 7.2 10^3/uL (4.0-10.0)
[2019-06-12 09:16] LABS: BLOOD UREA NITROGEN 13 MG/DL (7-18); CALCIUM LEVEL 8.2 MG/DL (8.8-10.2); CARBON DIOXIDE LEVEL 26 MEQ/L (21-32); CHLORIDE LEVEL 105 MEQ/L (98-107); CREATININE FOR GFR 0.85 MG/DL (0.70-1.30); GLOMERULAR FILTRATION RATE > 60.0 (>35); GLUCOSE, FASTING 89 MG/DL (70-100); POTASSIUM SERUM 3.9 MEQ/L (3.5-5.1); SODIUM LEVEL 140 MEQ/L (136-145)
== END ==
PROVIDERS: ATTEND Physician Assistant
DX: I48.91 Unspecified atrial fibrillation (principal); Z79.899 Other long term (current) drug therapy

== ENCOUNTER → 2019-06-18 | Outpatient (REF) ==
[~2019-06-18] MED LIST changes: -CLON0.5T2 PO; +CLON0.5T8 PO; -OMEP1CAP73 PO; +OMEP20CA4 PO
[2019-06-18 11:02] LABS: HEMATOCRIT 34.9 % (42.0-52.0); HEMOGLOBIN 11.7 g/dl (13.5-17.5); MEAN CORPUSCULAR HEMOGLOBIN 33.1 pg (27.0-33.0); MEAN CORPUSCULAR HGB CONC 33.5 g/dl (32.0-36.5); MEAN CORPUSCULAR VOLUME 98.9 fl (80.0-96.0); PLATELET COUNT, AUTOMATED 262 10^3/uL (150-450); RED BLOOD COUNT 3.53 10^6/uL (4.30-6.10); WHITE BLOOD COUNT 7.1 10^3/uL (4.0-10.0)
[2019-06-18 11:26] LABS: BLOOD UREA NITROGEN 13 MG/DL (7-18); CALCIUM LEVEL 8.6 MG/DL (8.8-10.2); CARBON DIOXIDE LEVEL 30 MEQ/L (21-32); CHLORIDE LEVEL 99 MEQ/L (98-107); CREATININE FOR GFR 0.96 MG/DL (0.70-1.30); GLOMERULAR FILTRATION RATE > 60.0 (>35); GLUCOSE, FASTING 111 MG/DL (70-100); POTASSIUM SERUM 4.5 MEQ/L (3.5-5.1); SODIUM LEVEL 137 MEQ/L (136-145)
== END ==
PROVIDERS: ATTEND Physician Assistant
DX: R41.82 Altered mental status, unspecified (principal)

== ENCOUNTER → 2019-07-02 | Outpatient (REF) ==
[2019-07-02 10:09] LABS: HEMATOCRIT 34.6 % (42.0-52.0); HEMOGLOBIN 11.2 g/dl (13.5-17.5); MEAN CORPUSCULAR HEMOGLOBIN 31.2 pg (27.0-33.0); MEAN CORPUSCULAR HGB CONC 32.4 g/dl (32.0-36.5); MEAN CORPUSCULAR VOLUME 96.4 fl (80.0-96.0); PLATELET COUNT, AUTOMATED 353 10^3/uL (150-450); RED BLOOD COUNT 3.59 10^6/uL (4.30-6.10)
[2019-07-02 10:35] LABS: BLOOD UREA NITROGEN 10 MG/DL (7-18); CALCIUM LEVEL 8.6 MG/DL (8.8-10.2); CARBON DIOXIDE LEVEL 26 MEQ/L (21-32); CHLORIDE LEVEL 101 MEQ/L (98-107); CREATININE FOR GFR 0.92 MG/DL (0.70-1.30); GLOMERULAR FILTRATION RATE > 60.0 (>35); GLUCOSE, FASTING 91 MG/DL (70-100); POTASSIUM SERUM 3.7 MEQ/L (3.5-5.1); SODIUM LEVEL 137 MEQ/L (136-145)
== END ==
PROVIDERS: ATTEND Family Medicine
DX: Z79.82 Long term (current) use of aspirin (principal)

== ENCOUNTER → 2019-07-30 | Outpatient (REF) ==
[2019-07-30 08:59] LABS: HEMATOCRIT 35.9 % (42.0-52.0); HEMOGLOBIN 11.7 g/dl (13.5-17.5); MEAN CORPUSCULAR HEMOGLOBIN 32.2 pg (27.0-33.0); MEAN CORPUSCULAR HGB CONC 32.6 g/dl (32.0-36.5); MEAN CORPUSCULAR VOLUME 98.9 fl (80.0-96.0); PLATELET COUNT, AUTOMATED 230 10^3/uL (150-450); RED BLOOD COUNT 3.63 10^6/uL (4.30-6.10); WHITE BLOOD COUNT 9.8 10^3/uL (4.0-10.0)
[2019-07-30 09:30] LABS: BLOOD UREA NITROGEN 12 MG/DL (7-18); CALCIUM LEVEL 8.9 MG/DL (8.8-10.2); CARBON DIOXIDE LEVEL 26 MEQ/L (21-32); CHLORIDE LEVEL 103 MEQ/L (98-107); GLOMERULAR FILTRATION RATE > 60.0 (>35); GLUCOSE, FASTING 92 MG/DL (70-100); POTASSIUM SERUM 3.6 MEQ/L (3.5-5.1); SODIUM LEVEL 138 MEQ/L (136-145)
== END ==
PROVIDERS: ATTEND Family Medicine
DX: Z79.899 Other long term (current) drug therapy (principal)

== ENCOUNTER → 2019-07-31 | Outpatient (REF) | payer MEDICARE, BC, OTHER ==
--- NOTE | 2019-07-31 15:16 | REP ---
Single view chest: 07/31/2019. Indication: Cough. Comparison: 05/01/2019. Findings: The patient is status post median sternotomy and valve replacement. Mild cardiomegaly is present. Diffuse increased interstitial markings are present bilaterally. Perihilar vascular markings are additionally mildly prominent. There is no significant pleural effusion or pneumothorax. Impression: Findings suggestive of CHF. Please correlate. Electronically Signed by Jonah Andrew DO 07/31/2019 03:07 P
== END ==
PROVIDERS: ATTEND Physician Assistant
DX: R91.8 Other nonspecific abnormal finding of lung field (principal); R05 Cough

== ENCOUNTER → 2019-08-01 | Outpatient (REF) | payer MEDICARE, BC, OTHER ==
[2019-08-01 09:25] LABS: HEMATOCRIT 31.2 % (42.0-52.0); HEMOGLOBIN 10.4 g/dl (13.5-17.5); MEAN CORPUSCULAR HEMOGLOBIN 32.8 pg (27.0-33.0); MEAN CORPUSCULAR HGB CONC 33.3 g/dl (32.0-36.5); MEAN CORPUSCULAR VOLUME 98.4 fl (80.0-96.0); PLATELET COUNT, AUTOMATED 191 10^3/uL (150-450); RED BLOOD COUNT 3.17 10^6/uL (4.30-6.10); WHITE BLOOD COUNT 7.9 10^3/uL (4.0-10.0)
[2019-08-01 09:42] LABS: BLOOD UREA NITROGEN 16 MG/DL (7-18); CALCIUM LEVEL 8.4 MG/DL (8.8-10.2); CARBON DIOXIDE LEVEL 24 MEQ/L (21-32); CHLORIDE LEVEL 104 MEQ/L (98-107); CREATININE FOR GFR 0.89 MG/DL (0.70-1.30); GLOMERULAR FILTRATION RATE > 60.0 (>35); GLUCOSE, FASTING 99 MG/DL (70-100); POTASSIUM SERUM 3.2 MEQ/L (3.5-5.1); SODIUM LEVEL 138 MEQ/L (136-145)
== END ==
PROVIDERS: ATTEND Family Medicine
DX: R05 Cough (principal)

== ENCOUNTER → 2019-08-05 | Outpatient (REF) | payer MEDICARE, BC, OTHER ==
[2019-08-05 13:57] LABS: BLOOD UREA NITROGEN 12 MG/DL (7-18); CALCIUM LEVEL 8.6 MG/DL (8.8-10.2); CARBON DIOXIDE LEVEL 27 MEQ/L (21-32); CHLORIDE LEVEL 104 MEQ/L (98-107); CREATININE FOR GFR 1.02 MG/DL (0.70-1.30); GLOMERULAR FILTRATION RATE > 60.0 (>35); GLUCOSE, FASTING 82 MG/DL (70-100); POTASSIUM SERUM 3.9 MEQ/L (3.5-5.1); SODIUM LEVEL 139 MEQ/L (136-145)
== END ==
PROVIDERS: ATTEND Family Medicine
DX: I50.9 Heart failure, unspecified (principal)

== ENCOUNTER 2019-12-25 13:01 | Emergency (ER) | payer MEDICARE, MEDICAID ==
[~2019-12-25 13:01] MED LIST changes: +CLON0.5T2 PO; -CLON0.5T8 PO; +OMEP1CAP73 PO; -OMEP20CA4 PO
[2019-12-25] MEDS ORDERED: ACET1TAB55 PO (13:21)
[2019-12-25] MEDS ORDERED: ASPI1CHW3 PO (13:26)
[2019-12-25 13:56] VITALS: BP 110/66
--- NOTE | 2019-12-25 13:59 | REP ---
CT study of the brain without contrast: History: Injury in a fall. Comparison head CT study is from March 01, 2017. A remote prior head CT study from June 2011 is also reviewed. Findings: The patient is status post right frontal craniotomy as previously noted. The patient is edentulous on digital lateral merchandising manager view. Bone window settings show slight motion artifact but no evidence of skull fracture or bony destructive lesion. Vascular calcification is seen in the distal internal carotid arteries. On soft tissue window settings, there is an area of encephalomalacia underlying the craniotomy defect in the right frontal lobe which is unchanged from the March 01, 2017 study. There is also mild encephalomalacia in the right parietal lobe related to the remote prior intraparenchymal hemorrhage. There is no evidence of acute intracranial hemorrhage today. Small vessel atherosclerotic changes are noted. No acute infarction is seen. There is no evidence of extra-axial fluid collection, mass or midline shift. Impression: Chronic changes post right frontal craniotomy. Areas of encephalomalacia in the right parietal and right frontal lobes unchanged from multiple prior studies. No acute intracranial abnormality. Slight motion artifact. Vascular calcification and small vessel changes. Electronically Signed by Merrill Wilkes MD 12/25/2019 04:50 P
--- NOTE | 2019-12-25 14:00 | REP ---
CT study of the cervical spine without contrast: History: Trauma. Injury in a fall. No comparison cervical spine CT study. Technique: Helical scanning is acquired and overlapping 2 mm high resolution axial images were generated and reviewed at bone and soft tissue window settings. Coronal and sagittal multiplanar re-formations images are generated. CT findings: There is no evidence of cervical spine element fracture. No skull base fracture is seen. Cervical vertebral body heights are preserved. Alignment is normal. Facet joints are normally aligned bilaterally at each cervical level on multiplanar re-formations images. There is no evidence of intraspinal or paraspinal hematoma. No extra vertebral abnormality is seen. There are osteoarthritic changes at the articulation between the dens and the anterior arch of C1. There is degenerative disc spurring is most pronounced at C3-4 and C4-5 as well as at C6-7. There is osteoarthritic facet hypertrophy in the mid cervical spine. Impression: Mild to moderate degenerative spondylosis changes. Otherwise negative CT study of the cervical spine without contrast. No fracture seen. Electronically Signed by Merrill Wilkes MD 12/25/2019 04:50 P
--- NOTE | 2019-12-25 14:01 | REP ---
Right hip two views: There is no fracture or dislocation. There is calcified vascular atheroma in the. There is no femoral head deformity. There are no calcifications or foreign bodies otherwise. Impression: No fracture or dislocation. Electronically Signed by Lukas Shields MD 12/25/2019 01:52 P
--- NOTE | 2019-12-25 14:10 | REP ---
Left shoulder three views: Comparison is 08/01/2013. There is a defect along the medial margin of the humeral head on one-view, possibly a reverse Hill-Sachs lesion. There is no dislocation. No other fracture is identified. There are no calcifications. The acromioclavicular joint is unremarkable . Impression: Questionable reverse Hill-Sachs lesion of the humeral head. Otherwise, negative left shoulder. Electronically Signed by Lukas Shields MD 12/25/2019 02:01 P
[2019-12-25] MEDS ORDERED: ACETAMINOPHEN 325 MG TAB PO ONE (15:00)
--- NOTE | 2019-12-25 15:50 | REP ---
CT left shoulder without contrast: History: Injury in a fall. Shoulder pain. Technique: Helical scanning is acquired. Axial 3 mm images are acquired and viewed at bone and soft-tissue window settings. Oblique coronal and oblique sagittal multiplanar reformation images are generated. Comparison is made with images through the left shoulder done by CT scan of the chest May 01, 2019. CT findings: The glenohumeral and acromioclavicular joints are normally aligned. No scapular, glenoid, clavicular, or humeral head fracture is seen. The anterior and posterior margins of the humeral head are unchanged in contour and appearance when compared with the May 01, 2019 prior study. There is minimal glenohumeral spurring. Multiplanar reformation images show no evidence of fracture. Periarticular soft tissues are unremarkable. No adjacent rib fracture is appreciated. There are mild emphysematous changes in the upper lobe of the left lung. Vascular calcification is noted. Impression: No CT evidence of fracture or subluxation. 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 Some vascular calcification is noted. The appearance of the humeral head is unchanged from CT images May 01, 2019. Electronically Signed by Merrill Wilkes MD 12/25/2019 04:52 P
--- NOTE | 2019-12-25 15:54 | REP ---
CT chest without contrast: History: Injury in a fall. Rib pain. Comparison chest CT study is from May 01, 2019. CT findings: There are emphysematous changes in the upper lobes and bilaterally in the lower lobes. Some pulmonary fibrosis is seen diffusely. There is a small quantity of right pleural fluid. No pneumothorax is seen on either side. There is mild pleural thickening at the left base. No acute rib fracture is appreciated. There are old healed rib fractures involving the left posterior 10th and 11th ribs. Prior sternotomy wires are seen. Thoracic vertebral body heights are preserved. No thoracic spine fracture is appreciated. The patient is status post mitral valve replacement. The visualized upper abdominal structures are unremarkable. No pulmonary mass or significant pulmonary nodule is appreciated. Impression: Small amount of right pleural fluid. Cardiomegaly status post mitral valve replacement. Evidence of COPD and pulmonary fibrosis. No acute rib or other fracture is seen. Otherwise no acute disease. Electronically Signed by Merrill Wilkes MD 12/25/2019 04:52 P
== END 2019-12-25 18:40 | disposition home or self-care (01) ==
LOC: M ED 13:01 → EDBD 13:01 → M ED 18:40
DX: R26.81 Unsteadiness on feet (principal); W19.XXXA Unspecified fall, initial encounter; Y92.121 Bathroom in nursing home as the place of occurrence of the external cause; Y93.9 Activity, unspecified; Y99.9 Unspecified external cause status; I51.7 Cardiomegaly; M47.812 Spondylosis without myelopathy or radiculopathy, cervical region; M19.012 Primary osteoarthritis, left shoulder; J84.10 Pulmonary fibrosis, unspecified; I48.91 Unspecified atrial fibrillation; I25.10 Atherosclerotic heart disease of native coronary artery without angina pectoris; I50.9 Heart failure, unspecified; E78.5 Hyperlipidemia, unspecified; N40.0 Benign prostatic hyperplasia without lower urinary tract symptoms; K21.9 Gastro-esophageal reflux disease without esophagitis; I71.4 Abdominal aortic aneurysm, without rupture; Z95.2 Presence of prosthetic heart valve; Z87.891 Personal history of nicotine dependence; Z79.82 Long term (current) use of aspirin; Z79.899 Other long term (current) drug therapy; Z88.8 Allergy status to other drugs, medicaments and biological substances

== ENCOUNTER → 2020-03-02 | Outpatient (REF) | payer MEDICARE, MEDICAID ==
[~2020-03-02] MED LIST changes: +ACET1TAB55 PO; +ASPI1CHW3 PO
[2020-03-02 12:45] LABS: BASO # 0.1 10^3/uL (0.0-0.2); BASO % 0.8 % (0.0-1.0); EOS # 0.3 10^3/uL (0.0-0.5); EOS % 5.1 % (0.0-3.0); HEMATOCRIT 33.8 % (42.0-52.0); HEMOGLOBIN 11.4 g/dl (13.5-17.5); LYMPH # 0.7 10^3/uL (1.5-5.0); LYMPH % 11.7 % (24.0-44.0); MEAN CORPUSCULAR HEMOGLOBIN 33.3 pg (27.0-33.0); MEAN CORPUSCULAR HGB CONC 33.7 g/dl (32.0-36.5); MEAN CORPUSCULAR VOLUME 98.8 fl (80.0-96.0); MONO # 0.5 10^3/uL (0.0-0.8); MONO % 8.1 % (0.0-5.0); NEUTROPHILS # 4.3 10^3/uL (1.5-8.5); NEUTROPHILS % 73.1 % (36.0-66.0); PLATELET COUNT, AUTOMATED 230 10^3/uL (150-450); RED BLOOD COUNT 3.42 10^6/uL (4.30-6.10); WHITE BLOOD COUNT 5.9 10^3/uL (4.0-10.0)
[2020-03-02 13:11] LABS: ALBUMIN 3.2 GM/DL (3.2-5.2); ALT/SGPT 14 U/L (12-78); BILIRUBIN,TOTAL 0.5 MG/DL (0.2-1.0); BLOOD UREA NITROGEN 20 MG/DL (7-18); CALCIUM LEVEL 8.4 MG/DL (8.8-10.2); CARBON DIOXIDE LEVEL 26 MEQ/L (21-32); CHLORIDE LEVEL 102 MEQ/L (98-107); CHOLESTEROL LEVEL 155 MG/DL (<200); CHOLESTEROL RISK RATIO 4.696 (<5); CREATININE FOR GFR 1.14 MG/DL (0.70-1.30); GLOMERULAR FILTRATION RATE > 60.0 (>35); GLUCOSE, FASTING 117 MG/DL (70-100); HDL CHOLESTEROL 33 MG/DL (>40); LDL CHOLESTEROL 106 MG/DL (<100); NON-HDL-C 122 MG/DL; POTASSIUM SERUM 4.1 MEQ/L (3.5-5.1); SODIUM LEVEL 136 MEQ/L (136-145); TOTAL PROTEIN 7.1 GM/DL (6.4-8.2); TRIGLYCERIDES LEVEL 78 MG/DL (<150)
== END ==
PROVIDERS: ATTEND Internal Medicine
DX: I25.10 Atherosclerotic heart disease of native coronary artery without angina pectoris (principal); E78.2 Mixed hyperlipidemia; K21.9 Gastro-esophageal reflux disease without esophagitis

== ENCOUNTER 2020-05-30 10:25 | Emergency (ER) | payer MEDICARE, MEDICAID ==
[2020-05-30] MEDS ORDERED: ISOVUE-370 76% 100ML VIAL As Ordered ONE (10:36)
[2020-05-30] MEDS ORDERED: ONDANSETRON 4MG/2ML VIAL ONE (14:17)
[2020-05-30] MEDS ORDERED: ONDANSETRON 4MG/2ML VIAL As Ordered ONE (14:17)
--- NOTE | 2020-07-02 10:18 | ECGEPIP ---
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
--- NOTE | 2020-07-03 15:03 | ECGEPIP ---
SINUS RHYTHM WITH FIRST DEGREE AV BLOCK LEFT ANTERIOR FASCICULAR BLOCK POSSIBLE ANTERIOR MYOCARDIAL INFARCTION, PROBABLY OLD INFERIOR MYOCARDIAL INFARCTION, PROBABLY OLD ABNORMAL ECG POOR R WAVE PROGRESSION BASELINE ARTIFACT NO PRIOR DUE TO DOWNTIME SEE SCANNED DOWNTIME REPORT MTDD
[2020-07-13 12:12] LABS: INR 1.07; PARTIAL THROMBOPLASTIN TIME 28.1 SECONDS (24.2-38.5); PROTHROMBIN TIME 14.1 SECONDS (12.5-14.3)
[2020-07-13 14:05] LABS: BASO % 0.5 % (0.0-1.0); EOS # 0.1 10^3/uL (0.0-0.5); EOS % 1.8 % (0.0-3.0); HEMOGLOBIN 12.1 g/dl (13.5-17.5); LYMPH # 0.6 10^3/uL (1.5-5.0); MEAN CORPUSCULAR HEMOGLOBIN 32.9 pg (27.0-33.0); MEAN CORPUSCULAR HGB CONC 32.7 g/dl (32.0-36.5); MEAN CORPUSCULAR VOLUME 100.5 fl (80.0-96.0); MONO # 0.4 10^3/uL (0.0-0.8); MONO % 4.6 % (0.0-5.0); NEUTROPHILS # 6.7 10^3/uL (1.5-8.5); NEUTROPHILS % 85.7 % (36.0-66.0); PLATELET COUNT, AUTOMATED 182 10^3/uL (150-450); RED BLOOD COUNT 3.68 10^6/uL (4.30-6.10); WHITE BLOOD COUNT 7.8 10^3/uL (4.0-10.0)
[2020-08-23 11:49] LABS: ALBUMIN 3.9 GM/DL (3.2-5.2); BILIRUBIN,DIRECT 0.3 MG/DL (0.0-0.2); BILIRUBIN,TOTAL 0.8 MG/DL (0.2-1.0); FREE T4 1.06 NG/DL (0.76-1.46); MB/CK RELATIVE INDEX 2.38 (< OR =4); THYROID STIMULATING HORMONE 2.91 uIU/ML (0.358-3.740); TOTAL PROTEIN 7.6 GM/DL (6.4-8.2); TROPONIN I 0.33 NG/ML (< 0.10)
[2020-08-23 11:49] LABS: CK-MB VALUE MASS 1.9 NG/ML (<3.6); MB/CK RELATIVE INDEX 2.44 (< OR =4); TROPONIN I 0.32 NG/ML (< 0.10)
== END 2020-05-30 15:20 | disposition home or self-care (01) ==
LOC: M ED 10:25
DX: R07.9 Chest pain, unspecified (principal); R91.1 Solitary pulmonary nodule; R10.9 Unspecified abdominal pain; I51.7 Cardiomegaly; K40.30 Unilateral inguinal hernia, with obstruction, without gangrene, not specified as recurrent; K57.32 Diverticulitis of large intestine without perforation or abscess without bleeding; K80.20 Calculus of gallbladder without cholecystitis without obstruction; I71.4 Abdominal aortic aneurysm, without rupture; N28.1 Cyst of kidney, acquired; M51.9 Unspecified thoracic, thoracolumbar and lumbosacral intervertebral disc disorder; R94.31 Abnormal electrocardiogram [ECG] [EKG]; I44.4 Left anterior fascicular block; I44.0 Atrioventricular block, first degree; J91.8 Pleural effusion in other conditions classified elsewhere; R59.0 Localized enlarged lymph nodes; Z95.4 Presence of other heart-valve replacement
CPT/HCPCS: 71045; 71275; 74177; 80047; 80076; 82550; 82553; 83605; 83690; 84439; 84443; 84484; 85025; 85610; 85730; 87040; 93005; 96374; 99284; J2405; Q9967

== ENCOUNTER → 2020-09-25 | Outpatient (REF) | payer MEDICARE, MEDICAID | PROVIDERS: ATTEND Internal Medicine | DX: Z20.828 Contact with and (suspected) exposure to other viral communicable diseases (principal) ==

== ENCOUNTER → 2020-09-29 | Outpatient (REF) | payer MEDICARE, MEDICAID ==
[2020-09-29 11:24] LABS: HEMATOCRIT 36.7 % (42.0-52.0); HEMOGLOBIN 11.2 g/dl (13.5-17.5); MEAN CORPUSCULAR HEMOGLOBIN 30.1 pg (27.0-33.0); MEAN CORPUSCULAR HGB CONC 30.5 g/dl (32.0-36.5); MEAN CORPUSCULAR VOLUME 98.7 fl (80.0-96.0); PLATELET COUNT, AUTOMATED 187 10^3/uL (150-450); RED BLOOD COUNT 3.72 10^6/uL (4.30-6.10); WHITE BLOOD COUNT 6.1 10^3/uL (4.0-10.0)
[2020-09-29 12:09] LABS: ALBUMIN 3.7 GM/DL (3.2-5.2); BILIRUBIN,TOTAL 0.7 MG/DL (0.2-1.0); CALCIUM LEVEL 8.8 MG/DL (8.8-10.2); CREATININE FOR GFR 1.22 MG/DL (0.70-1.30); POTASSIUM SERUM 4.4 MEQ/L (3.5-5.1); THYROID STIMULATING HORMONE 2.38 uIU/ML (0.358-3.740); TOTAL PROTEIN 7.5 GM/DL (6.4-8.2)
== END ==
PROVIDERS: ATTEND Nurse Practitioner Adult Health
DX: I48.91 Unspecified atrial fibrillation (principal); I50.32 Chronic diastolic (congestive) heart failure

== ENCOUNTER → 2020-09-30 | Outpatient (REF) | payer MEDICARE, MEDICAID | PROVIDERS: ATTEND Internal Medicine | DX: Z20.828 Contact with and (suspected) exposure to other viral communicable diseases (principal) ==

== ENCOUNTER → 2020-10-05 | Outpatient (REF) | payer MEDICARE, MEDICAID | PROVIDERS: ATTEND Internal Medicine | DX: Z20.828 Contact with and (suspected) exposure to other viral communicable diseases (principal) ==

== ENCOUNTER → 2020-10-12 | Outpatient (REF) | payer MEDICARE, MEDICAID | PROVIDERS: ATTEND Internal Medicine | DX: Z20.828 Contact with and (suspected) exposure to other viral communicable diseases (principal) ==

== ENCOUNTER → 2020-10-19 | Outpatient (REF) | payer MEDICARE, MEDICAID | PROVIDERS: ATTEND Internal Medicine | DX: Z11.52 Encounter for screening for COVID-19 (principal) ==

== ENCOUNTER → 2020-10-26 | Outpatient (REF) | payer MEDICARE, MEDICAID | PROVIDERS: ATTEND Internal Medicine | DX: Z20.822 Contact with and (suspected) exposure to COVID-19 (principal) ==

== ENCOUNTER → 2020-11-02 | Outpatient (REF) | payer MEDICARE, MEDICAID | PROVIDERS: ATTEND Internal Medicine | DX: Z20.822 Contact with and (suspected) exposure to COVID-19 (principal) ==

== ENCOUNTER → 2020-11-09 | Outpatient (REF) | payer MEDICARE, MEDICAID | PROVIDERS: ATTEND Internal Medicine | DX: Z20.822 Contact with and (suspected) exposure to COVID-19 (principal) ==

== ENCOUNTER → 2020-11-10 | Outpatient (REF) | payer MEDICARE, MEDICAID ==
[~2020-11-10] MED LIST changes: +ISOS1TAB35 PO; -ISOS30TA4 PO
== END ==
LOC: M SFHCPLAZ 21:46
PROVIDERS: ATTEND Internal Medicine
DX: R82.90 Unspecified abnormal findings in urine (principal)

== ENCOUNTER → 2020-11-16 | Outpatient (REF) | payer MEDICARE, MEDICAID ==
[~2020-11-16] MED LIST changes: -ISOS1TAB35 PO; +ISOS30TA4 PO
== END ==
PROVIDERS: ATTEND Internal Medicine
DX: Z20.822 Contact with and (suspected) exposure to COVID-19 (principal)

== ENCOUNTER → 2020-11-23 | Outpatient (REF) | payer MEDICARE, MEDICAID ==
[~2020-11-23] MED LIST changes: +ISOS1TAB35 PO; -ISOS30TA4 PO
== END ==
PROVIDERS: ATTEND Internal Medicine
DX: Z20.822 Contact with and (suspected) exposure to COVID-19 (principal)

== ENCOUNTER → 2020-11-30 | Outpatient (REF) | payer MEDICARE, MEDICAID | PROVIDERS: ATTEND Internal Medicine | DX: Z20.822 Contact with and (suspected) exposure to COVID-19 (principal) ==

== ENCOUNTER → 2020-12-08 | Outpatient (CLI) | payer MEDICARE, MEDICAID ==
[~2020-12-08] MED LIST changes: +ASPI81TA26 PO; +COLE625TAB PO; +DULO1CAP4 PO; +NYST1POW9 TOP; +OMEP-221 PO
--- NOTE | 2020-12-09 08:16 | REPPI ---
INDICATION: LEFT HIP PAIN. COMPARISON: Comparison radiograph is from June 06, 2019.. TECHNIQUE: AP and frogleg views of the left hip. FINDINGS: The left femoral head is smooth and rounded hip joint space is preserved. No fracture is seen. There is diffuse osteopenia. Extensive vascular calcification is noted. The visualized left hemipelvis is intact. There is some subcortical cyst formation in the superior acetabular margin with early spurring. IMPRESSION: Vascular calcification. Diffuse osteopenia. Mild osteoarthritic changes. <Electronically signed by Rickey Wilkes > 12/09/20 [id number]
--- NOTE | 2020-12-09 08:16 | REPPI ---
INDICATION: LEFT HIP PAIN. COMPARISON: None. TECHNIQUE: Four views of the left femur. FINDINGS: Four views of the left femur demonstrate extensive vascular calcification. Mild diffuse osteopenia. No fracture is seen. No acute bony erosive changes noted. Chondrocalcinosis is noted at the knee. Mild acetabular spurring is noted.. . . IMPRESSION: Vascular calcification and diffuse osteopenia. No acute bony abnormality.. <Electronically signed by Rickey Wilkes > 12/09/20 [id number]
== END ==
LOC: M PLAIMG 15:30
PROVIDERS: ATTEND Nurse Practitioner Adult Health
DX: M85.88 Other specified disorders of bone density and structure, other site (principal); M11.262 Other chondrocalcinosis, left knee; M25.552 Pain in left hip
CPT/HCPCS: 73502; 73552; G0463

== ENCOUNTER 2020-12-13 11:54 | Inpatient (IN) | payer MEDICARE, MEDICAID ==
[~2020-12-13] VITALS: Ht 172.7 cm; Wt 61.3 kg
[~2020-12-13 11:54] MED LIST changes: -ASPI81TA26 PO; -COLE625TAB PO; -DULO1CAP4 PO; -NYST1POW9 TOP; -OMEP-221 PO
[2020-12-13 12:34] LABS: BASO % 0.4 % (0.0-1.0); EOS % 0.5 % (0.0-3.0); HEMATOCRIT 36.7 % (42.0-52.0); HEMOGLOBIN 11.7 g/dl (13.5-17.5); LYMPH # 0.6 10^3/uL (1.5-5.0); LYMPH % 7.2 % (24.0-44.0); MEAN CORPUSCULAR HEMOGLOBIN 30.8 pg (27.0-33.0); MEAN CORPUSCULAR HGB CONC 31.9 g/dl (32.0-36.5); MEAN CORPUSCULAR VOLUME 96.6 fl (80.0-96.0); MONO # 0.6 10^3/uL (0.0-0.8); MONO % 7.2 % (2.0-8.0); NEUTROPHILS # 6.9 10^3/uL (1.5-8.5); NEUTROPHILS % 84.2 % (36.0-66.0); PLATELET COUNT, AUTOMATED 219 10^3/uL (150-450); WHITE BLOOD COUNT 8.1 10^3/uL (4.0-10.0)
[2020-12-13 12:44] LABS: INR 1.14; PROTHROMBIN TIME 14.9 SECONDS (12.5-14.3)
--- NOTE | 2020-12-13 12:57 | REP ---
INDICATION: altered. COMPARISON: 12/25/2019. TECHNIQUE: CT BRAIN PERFORMED IN THE AXIAL PLANE. CORONAL RECONSTRUCTION IMAGES ARE PERFORMED. FINDINGS: There is again evidence of prior right frontal craniotomy with underlying right frontal encephalomalacia, unchanged since prior exam. Moderate diffuse periventricular white matter lucencies are stable. There is no acute intracranial hemorrhage or extra-axial fluid collection. There is no midline shift or mass effect. There are vascular calcifications in the carotid siphons. The visualized mastoid air cells and paranasal sinuses are clear. IMPRESSION: Prior right frontal craniotomy with underlying encephalomalacia. Chronic changes are stable. No acute intracranial hemorrhage, midline shift or mass effect. <Electronically signed by Lukas Caraballo > 12/13/20 [id number]
[2020-12-13 12:59] LABS: ALBUMIN 3.7 GM/DL (3.2-5.2); BILIRUBIN,TOTAL 1.3 MG/DL (0.2-1.0); CALCIUM LEVEL 9.4 MG/DL (8.8-10.2); CREATININE FOR GFR 1.38 MG/DL (0.70-1.30); POTASSIUM SERUM 4.4 MEQ/L (3.5-5.1); TOTAL PROTEIN 7.4 GM/DL (6.4-8.2)
--- NOTE | 2020-12-13 13:00 | REP ---
INDICATION: trauma. COMPARISON: 08/01/2013. TECHNIQUE: AP view pelvis and AP and frogleg views right hip. FINDINGS: There is no acute fracture or dislocation. There is mild arthritic change of both hip joints, with mild joint space narrowing, subchondral sclerosis and spurring. There is mild narrowing and sclerosis at the sacroiliac joints. There are degenerative changes of the lower lumbar spine. There are diffuse vascular calcifications. IMPRESSION: Arthritic changes with no evidence of acute fracture or dislocation. <Electronically signed by Lukas Caraballo > 12/13/20 [id number]
--- NOTE | 2020-12-13 13:44 | REP ---
INDICATION: pain COMPARISON: None. TECHNIQUE: Real time compression and duplex Doppler interrogation of the right lower extremity deep venous system is performed. FINDINGS: The right common femoral, superficial femoral and popliteal veins are fully compressible with transducer pressure and demonstrate normal spontaneous and phasic flow, without evidence of deep venous thrombosis. IMPRESSION: No evidence of deep venous thrombosis of the right lower extremity femoral popliteal venous system. <Electronically signed by Lukas Caraballo > 12/13/20 [id number]
--- NOTE | 2020-12-13 13:47 | REP ---
INDICATION: pain. COMPARISON: None. TECHNIQUE: Real-time sonographic evaluation of scrotum and contents performed. FINDINGS: Testicles are normal in size and echotexture, right testicle measuring 3.4 x 2.3 x 2.9 cm and left testicle 3.8 x 2.7 x 3.3 cm. There is no testicular mass or torsion. Blood flow is seen in each testicle with duplex Doppler evaluation. There is a 3 mm cyst in the head of the left epididymis. There is a left inguinal hernia containing bowel. The hernia extends into the left scrotal sac. There are moderate hydroceles bilaterally. IMPRESSION: No testicular mass or torsion. Left inguinal hernia extends into the left scrotal sac, containing bowel loops. Moderate bilateral hydroceles. <Electronically signed by Lukas Caraballo > 12/13/20 [id number]
[2020-12-13] MEDS ORDERED: cefTRIAXone SOD 2 GM in D5W MINI-BAG PLUS 50 ML IV ONE (13:55)
--- NOTE | 2020-12-13 14:08 | REP ---
INDICATION: altered. COMPARISON: 05/30/2020. TECHNIQUE: SINGLE PORTABLE AP VIEW OF THE CHEST WAS PERFORMED. FINDINGS: Chronic vascular congestion and increased interstitial markings are stable. No new infiltrate is seen. There is mild cardiomegaly. There is calcification of the thoracic aorta. The mediastinal silhouette is unchanged. There are multiple sternal wires and prosthetic heart valve again noted. IMPRESSION: Stable vascular congestion and increased interstitial markings compared to prior study. Mild cardiomegaly. No new infiltrate. <Electronically signed by Lukas Caraballo > 12/13/20 [id number]
[2020-12-13] MEDS ORDERED: NYST1POW9 TOP (14:28)
[2020-12-13] MEDS ORDERED: ATOR40TA75 PO (14:28)
[2020-12-13] MEDS ORDERED: COLE625TAB PO (14:28)
[2020-12-13] MEDS ORDERED: OMEP-221 PO (14:28)
[2020-12-13] MEDS ORDERED: ASPI81TA26 PO (14:28)
[2020-12-13] MEDS ORDERED: DULO1CAP4 PO (14:28)
--- NOTE | 2020-12-13 14:34 | REP ---
INDICATION: right pain COMPARISON: 05/30/2020. TECHNIQUE: CT Scan of the abdomen and pelvis was performed without intravenous contrast. Sagittal and coronal reconstruction images performed. FINDINGS: Lung bases: There is stable chronic interstitial fibrosis with tiny right pleural effusion unchanged.. Liver: Grossly unremarkable. Gallbladder: There are multiple small gallstones in the gallbladder without evidence of gallbladder wall thickening or edema. Spleen: Grossly unremarkable.. Adrenals: Normal. Pancreas: Grossly unremarkable.. Kidneys: No hydronephrosis or nephrolithiasis. Ureters demonstrate no dilatation or calculus. There are 2 small cysts in the upper pole the left kidney. Small and large bowel: There is sigmoid diverticulosis without evidence of acute diverticulitis. Free fluid: None. Abdominal aorta: There is mild stable aneurysmal dilatation of the distal abdominal aorta AP diameter 3.4 cm, with moderate atherosclerotic calcifications. Adenopathy: None. Appendix: Not inflamed. Osseous structures: There are degenerative changes of the spine without compression deformity. Pelvis: No mass. No bladder calculus seen. A large left inguinal hernia contains nonobstructed sigmoid colon, and extends into the left hemiscrotum. This appears similar to the prior study. IMPRESSION: Multiple gallstones in the gallbladder with no gallbladder distention, gallbladder wall thickening or edema. No hydroureteronephrosis. Sigmoid diverticulosis without acute diverticulitis. There is a large left inguinal hernia containing sigmoid colon, extending into the left hemiscrotum, appearing similar to the prior CT exam. Stable mild aneurysmal dilatation of the distal abdominal aorta 3.4 cm. <Electronically signed by Lukas Caraballo > 12/13/20 [id number]
[2020-12-13 15:15] LABS: RSV AMPLIFICATION NEGATIVE (NEGATIVE)
--- NOTE | 2020-12-13 16:55 | HPEPDOC ---
General Date of Admission 12/13/20 Date of Service: Dec 13, 2020 Chief Complaint The patient is a 84-year-old male admitted with a reason for visit of unable to ambulate. Source: Patient, RN/MD, correction records, Old records History of Present Illness 84 year old male resident of [facility] assisted living has been deteriorating over the past 2 weeks. He has been confused and with increased incontinence. He had a fall 2 weeks ago and since then he has been just going down hill. This morning as per Assisted living staff patient woke up and was unable to ambulate at all and unable to do his ADLS. he had complained of back pain to the [facility] staff. He was sent to the ED for evaluation. He was seen by his PMD 6 days ago for issues of weakness confusion and incontinence. At that time he complained of left leg pain and inability to put pressure on that leg. He had xray of the left hip and left femur done on 12/08 which showed arthritis and osteopenia. He was started on Cymbalta. Had a visit with PMD in October also as he had complained of feeling depressed to the PT and had lost 9 lbs. He was felt to have reactive depression due to the COVID restrictions and was started on Sertraline. Which was stopped on 12/08/20 as he was having hallucinations. Today to the ED provider he complained of right groin pain and right leg pain. ED staff tried to stand him up but he was too weak to bear weight and stand up. Labs were unremarkable except for mild increase in creatinine to 1.37 and he had a dirty UA. On my exam he complained of LEFT leg pain. He did not know the month or year or where he was. He thought he was in [facility]. I reminded him that he was in the hospital and asked why he was here. He said that he was too "feeble" to stand up. I asked if he fell . He denied falling recently. When i reminded him that he had fallen last week he explained that sometimes he gets down on his knees if he drops something and cannot get up any more then the staff finds him down on his knees and think that he has fallen. His left leg pain in in the hip and thigh and knee sharp aching in nature he could not rate it. He aslo says that sometimes he has burning in his urine and h has difficulty in pushing the urine out. He was admitted for UTI, generalized weakness and confusion. Work up in the ED : CT head showed right frontal craniotomy/encephalomalacia Scrotal US showed bilateral hydroceles and left inguinal hernia extending into the scrotum CXR: vascular congestion Right hip and pelvis xray : No acute fracture or dislocation US of the right leg: No DVT. Home Medications Scheduled Acetaminophen (Acetaminophen) 325 Mg Tablet, 650 MG PO TID, (Reported) 600,1300,2000 Aspirin (Aspirin EC) 81 Mg Tablet.dr, 81 MG PO DAILY, (Reported) Atorvastatin Calcium (Atorvastatin Calcium) 40 Mg Tablet, 40 MG PO QHS, (Reported) Colesevelam Hydrochloride (Welchol) 625 Mg Tablet, 625 MG PO BID, (Reported) Duloxetine Hcl (Duloxetine HCl) 20 Mg Capsule.dr, 20 MG PO DAILY, (Reported) Finasteride (Finasteride) 5 Mg Tab, 5 MG PO DAILY, (Reported) Furosemide (Furosemide) 40 Mg Tab, 40 MG PO BID, (Reported) 900 and 1300 Isosorbide Mononitrate (Isosorbide Mononitrate ER) 30 Mg Tab, 30 MG PO DAILY, (Reported) Nystatin (Nystatin Powder) 15 Gm Powder, 1 APPLIC TOP BID, (Reported) APPLY TO ABDOMINAL FOLDS AND GROIN AREA Omeprazole (Omeprazole) 40 Mg Capsule.dr, 40 MG PO DAILY, (Reported) Spironolactone (Spironolactone) 25 Mg Tab, 25 MG PO DAILY, (Reported) Tamsulosin Hcl (Tamsulosin HCl) 0.4 Mg Capsule, 0.4 MG PO QHS, (Reported) Allergies Coded Allergies: lovastatin (Verified Allergy, Intermediate, hives, 05/01/19) Past Medical History Medical History 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 CAD s/p STENTS with H/o AMI. 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 Surgical History CORONARY ARTERY VALVE REPLACEMENT OPERATION FOR BRAIN HEMORRHAGE Family History SIBLINGS: BROTHER DURING SURGERY - CAD? FATHER AGE 79 OLD AGE MOTHER AGE 82 OLD AGE BROTHER AGE 49 CIRCULATION PROBLEMS. Social History * Smoker: former Smoker Alcohol: Denies Drugs: denies A-FIB/CHADSVASC A-FIB History Current/History of A-Fib/PAF?: Yes Current PO Anticoag Therapy: No Review of Systems Constitutional: Reports: Weakness, Fatigue; Denies: Chills, Fever, Night Sweats Eyes: Denies: Pain, Vision change ENT: Denies: Head Aches, Ear Pain, Dysphagia Skin: Denies: Rash, Lesions, Breakdown Pulmonary: Denies: Dyspnea, Cough Cardiovascular: Denies: Chest Pain, Palpitations, Orthopnea, Paroxysmal Noc. Dyspnea, Lt Headedness Gastrointestinal: Denies: Nausea, Vomiting, Abdominal Pain, Diarrhea Genitourinary: Reports: Dysuria, Incontinence Hematologic: Denies: Bruising, Bleeding Excessively Musculoskeletal: Reports: Back Pain, Leg Pain, Joint Pain Physical Examination General Exam: Positive: Alert, Cooperative, No Acute Distress Eye Exam: Positive: PERRLA, Conjunctiva & lids normal, EOMI; Negative: Sclera icteric ENT Exam: Positive: Atraumatic, Mucous membr. moist/pink, Pharynx Normal Neck Exam: Positive: Supple; Negative: JVD, thyromegaly Chest Exam: Positive: Clear to auscultation, Normal air movement Heart Exam: Positive: Rate Normal, Irregular Rhythm, Normal S1, Normal S2; Negative: Gallops, Murmurs, Rubs Telemetry: Positive: Atrial fibrillation Abdomen Exam: Positive: Normal bowel sounds, Soft; Negative: Tenderness, Hepatospenomegaly Extremity Exam: Positive: Edema (bipedal 2+ edema); Negative: Clubbing, Cyanosis Skin Exam: Positive: Nl turgor and temperature; Negative: Breakdown, Lesion Neuro Exam: Positive: Normal Speech, Normal Tone Psych Exam: Positive: Other (oriented x 1) Vital Signs Vital Signs Date Time Temp Pulse Resp B/P (MAP) Pulse Ox O2 Delivery O2 Flow Rate FiO2 12/13/20 12:39 111 99 12/13/20 12:15 117/80 (92) 12/13/20 12:03 97.6 16 Room Air Laboratory Data Labs 24H Laboratory Tests 2 12/13/20 12:13: Bedside Glucose (Misc Panel) 49L 12/13/20 12:14: Bedside Glucose (Misc Panel) 103 12/13/20 12:16: Bedside Glucose (Misc Panel) 113H 12/13/20 12:20: Lactic Acid Level 2.4*H 12/13/20 12:21: Immature Granulocyte % (Auto) 0.5, Neutrophils (%) (Auto) 84.2H, Lymphocytes (%) (Auto) 7.2L, Monocytes (%) (Auto) 7.2, Eosinophils (%) (Auto) 0.5, Basophils (%) (Auto) 0.4, Neutrophils # (Auto) 6.9, Lymphocytes # (Auto) 0.6L, Monocytes # (Auto) 0.6, Eosinophils # (Auto) 0.0, Basophils # (Auto) 0.0, Nucleated Red Blood Cells % (auto) 0.0, Prothrombin Time 14.9H, Prothromb Time International Ratio 1.14, Anion Gap 8, Glomerular Filtration Rate 52.0, Calcium Level 9.4, Total Bilirubin 1.3H, Aspartate Amino Transf (AST/SGOT) 29, Alanine Aminotransferase (ALT/SGPT) 16, Alkaline Phosphatase 103, Total Protein 7.4, Albumin 3.7, Albumin/Globulin Ratio 1.0 12/13/20 13:33: Urine Color YELLOW, Urine Appearance CLOUDYH, Urine pH 5.0, Urine Specific [place] 1.016, Urine Protein 1+H, Urine Glucose (UA) NEGATIVE, Urine Ketones NEGATIVE, Urine Blood NEGATIVE, Urine Nitrite NEGATIVE, Urine Bilirubin NEGATIVE, Urine Urobilinogen 0.2, Urine Leukocyte Esterase 3+H, Urine WBC (Auto) TNTCH, Urine RBC (Auto) 5H, Urine Hyaline Casts (Auto) 0, Urine Bacteria (Auto) 1+H, Urine Squamous Epithelial Cells 0, Urine Mucus (Auto) SMALL, Urine Sperm (Auto) 12/13/20 13:55: Bedside Glucose (Misc Panel) 100 12/13/20 14:12: CBC/BMP Laboratory Tests 12/13/20 12:21 Microbiology Microbiology 12/13/20 Urine Culture, Received Pending 12/13/20 Blood Culture, Received Pending Assessment/Plan 84 year old male resident of [facility] assisted living has been deteriorating over the past 2 weeks. He has been confused and with increased incontinence. He had a fall 2 weeks ago and since then he has been just going down hill. This morning as per Assisted living staff patient woke up and was unable to ambulate at all and unable to do his ADLS. he had complained of back pain to the [facility] staff. He was sent to the ED for evaluation. He was seen by his PMD 6 days ago for issues of weakness confusion and incontinence. At that time he complained of left leg pain and inability to put pressure on that leg. He had xray of the left hip and left femur done on 12/08 which showed arthritis and osteopenia. He was started on Cymbalta. Today to the ED provider he complained of right groin pain and right leg pain. ED staff tried to stand him up but he was too weak to bear weight and stand up. Labs were unremarkable except for mild increase in creatinine to 1.37 and he had a dirty UA. On my exam he complained of LEFT leg pain. He did not know the month or year or where he was. He thought he was in [facility]. I reminded him that he was in the hospital and asked why he was here. He said that he was too "feeble" to stand up. I asked if he fell . He denied falling recently. When i reminded him that he had fallen last week he explained that sometimes he gets down to his knees if he drops something and cannot get up any more then the staff finds him down on his knees and think that he has fallen. His left leg pain in in the hip and thigh and knee sharp aching in nature he could not rate it. He also says that sometimes he has burning in his urine and he has diffi culty in pushing the urine out. He was admitted for UTI, generalized weakness and confusion. UTI will continue ceftriaxone Weakness and falls. He has sarcopenia, bitemporal wasting, wasting of small muscles of the hands. this is probably age related decreased appetite and loss of muscle mass leading to weakness. I do not believe he will get much stronger with Physical therapy but we can defi nitely again try. 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 There may be some acute delirium on top of dementia from the UTI I am not sure if the recently started Cymbalta is making him confused or not. after treatment of the UTI will ask for speech and cognitive eval. Left/Right leg pain will continue with tylenol and cymbalta for now. BPH finasteride and flomax CAD asa, isosorbide, statin Dose of statin reduced. As the pains he is complaining could be myalgias. Patient is loosing weight. Chronic Afib rate controlled. Not on anticoagulation Systolic and diastolic CHF appears euvolemic though XCR shows chronic venous congestion. mild pedal edema will continue spironolactone, will reduce dose of lasix. Plan / VTE VTE Prophylaxis Ordered?: Yes ADOLPH GUERRA MD Dec 13, 2020 15:24
[2020-12-13 17:25] VITALS: BP 133/80
[2020-12-13] MEDS: ACETAMINOPHEN TAB 650MG DOSE (2X325MG) PO SCH ×2 (17:36→20:34)
[2020-12-13] MEDS ORDERED: SODIUM CHLORIDE 0.9% 1000ML IV ONE (19:10)
--- NOTE | 2020-12-13 20:10 | ECGEPIP ---
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
[2020-12-13] MEDS: ENOXAPARIN 30MG/0.3ML SYRINGE (J1650 PER 10MG) SC SCH (20:34)
[2020-12-13] MEDS: TAMSULOSIN 0.4 MG CAP PO SCH (20:34)
[2020-12-13] MEDS: ATORVASTATIN 10 MG TAB PO SCH (20:35)
[2020-12-13] MEDS ORDERED: ATORVASTATIN 20 MG TAB PO SCH (21:00)
[2020-12-13 22:00] VITALS: BP 130/89
[2020-12-14] MEDS: NS 1,000 ML IV SCH ×3 (00:09→18:29)
[2020-12-14 05:31] LABS: BASO % 0.3 % (0.0-1.0); EOS % 0.3 % (0.0-3.0); HEMATOCRIT 35.2 % (42.0-52.0); HEMOGLOBIN 11.4 g/dl (13.5-17.5); LYMPH # 0.5 10^3/uL (1.5-5.0); LYMPH % 6.5 % (24.0-44.0); MEAN CORPUSCULAR HEMOGLOBIN 31.1 pg (27.0-33.0); MEAN CORPUSCULAR HGB CONC 32.4 g/dl (32.0-36.5); MEAN CORPUSCULAR VOLUME 95.9 fl (80.0-96.0); MONO # 0.6 10^3/uL (0.0-0.8); MONO % 8.3 % (2.0-8.0); NEUTROPHILS # 6.4 10^3/uL (1.5-8.5); NEUTROPHILS % 84.1 % (36.0-66.0); PLATELET COUNT, AUTOMATED 205 10^3/uL (150-450); RED BLOOD COUNT 3.67 10^6/uL (4.30-6.10); WHITE BLOOD COUNT 7.6 10^3/uL (4.0-10.0)
[2020-12-14 05:58] LABS: CALCIUM LEVEL 9.1 MG/DL (8.8-10.2); CREATININE FOR GFR 1.38 MG/DL (0.70-1.30); POTASSIUM SERUM 4.5 MEQ/L (3.5-5.1)
[2020-12-14 06:00] VITALS: BP 142/88
[2020-12-14] MEDS ORDERED: FUROSEMIDE 40 MG TAB PO SCH (09:00)
[2020-12-14] MEDS ORDERED: SPIRONOLACTONE 25 MG TAB PO SCH (09:00)
[2020-12-14] MEDS: ASPIRIN 81MG ENTERIC TABLET PO SCH (09:39)
[2020-12-14] MEDS: ACETAMINOPHEN TAB 650MG DOSE (2X325MG) PO SCH ×3 (09:39→20:11)
[2020-12-14] MEDS: FINASTERIDE 5 MG TAB PO SCH (09:39)
[2020-12-14] MEDS: OMEPRAZOLE 20 MG CAP PO SCH (09:43)
[2020-12-14] MEDS: ISOSORBIDE MON. (IMDUR) 30 MG XR TAB PO SCH (09:46)
[2020-12-14] MEDS: DULoxetine 20 MG CAP (CYMBALTA) PO SCH (09:46)
--- NOTE | 2020-12-14 11:32 | IPNPDOC ---
Subjective Date Seen The patient was seen on 12/14/20. Subjective Chief Complaint/HPI Says he does not feel too good today . His legs are bothering him. Specially his left thigh is hurting. No fever or chills. Has some cough but could not bring up any phlegm. Denied any SOB. Objective Physical Examination General Exam: Positive: Alert, Cooperative, No Acute Distress, Other (mumbling answers today and apperas more unsure about his answers and more confused this morning. ) Eye Exam: Positive: PERRLA, Conjunctiva & lids normal, EOMI; Negative: Sclera icteric ENT Exam: Positive: Atraumatic, Mucous membr. moist/pink, Pharynx Normal Neck Exam: Positive: Supple; Negative: JVD, thyromegaly Chest Exam: Positive: Clear to auscultation, Normal air movement Heart Exam: Positive: Rate Normal, Irregular Rhythm, Normal S1, Normal S2; Negative: Gallops, Murmurs, Rubs Telemetry: Positive: Atrial fibrillation Abdomen Exam: Positive: Normal bowel sounds, Soft; Negative: Tenderness, Hepatospenomegaly Extremity Exam: Positive: Edema (bipedal 2+ edema); Negative: Clubbing, Cyanosis Skin Exam: Positive: Nl turgor and temperature; Negative: Breakdown, Lesion Neuro Exam: Positive: Normal Tone Psych Exam: Positive: Other (oriented x 1) Assessment /Plan Assessment 84 year old male resident of [facility] assisted living has been deteriorating over the past 2 weeks. He has been confused and with increased incontinence. He had a fall 2 weeks ago and since then he has been just going down hill. This morning a s per Assisted living staff patient woke up and was unable to ambulate at all and unable to do his ADLS. he had complained of back pain to the OR staff. He was sent to the ED for evaluation. He was seen by his PMD 6 days ago for issues of weakness confusion and incontinence. At that time he complained of left leg pain and inability to put pressure on that leg. He had xray of the left hip and left femur done on 12/08 which showed arthritis and osteopenia. He was started on Cymbalta. Today to the ED provider he complained of right groin pain and right leg pain. ED staff tried to stand him up but he was too weak to bear weight and stand up. Labs were unremarkable except for mild increase in creatinine to 1.37 and he had a dirty UA. On my exam he complained of LEFT leg pain. He did not know the month or year or where he was. He thought he [place] [facility] [place] reminded him that he was in the hospital and asked why he was here. He said that he was too "feeble" to stand up. I asked if he fell . He denied falling recently. When i reminded him that he had fallen last week he explained that sometimes he gets down to his knees if he drops something and cannot get up any more then the staff finds him down on his knees and think that he has fallen. His left leg pain in in the hip and thigh and knee sharp aching in nature he could not rate it. He also says that sometimes he has burning in his urine and he has difficulty in pushing the urine out. He was admitted for UTI, generalized weakness and confusion. UTI ruled out UA dirty probably skin colonizer culture no growth. Weakness and falls and debility He has sarcopenia, bitemporal wasting, wasting of small muscles of the hands. this is probably age related decreased appetite and loss of muscle mass leading to weakness. I do not believe he will get much stronger with Physical therapy but we can definitely again try. I anticipate he will need need NH placement. Confusion I believe he has baseline cognitive impairment from his prior intracranial bleeds with encephalomalacia and age related dementia which is just getting worse and has reached a stage that he cannot manage at assisted living. There may be some acute delirium on top of dementia. No UTI. I am not sure if the recently started Cymbalta is making him confused or not. Lacticacidosis he may have intravascular dehydration inspite of having peripheral edema on IVF, will hold lasix and spirololactone for 2 days. Left/Right leg pain will continue with tylenol and cymbalta for now. xrays done for both legs do not show any acute fracture or dislocation. BPH finasteride and flomax CAD asa, isosorbide, statin Dose of statin reduced. As the pains he is complaining could be myalgias. Patient is loosing weight. Chronic Afib rate controlled. Not on anticoagulation Systolic and diastolic CHF appears euvolemic though CXR shows chronic venous congestion. will hold spironolactone and lasix for 2 days. Plan/VTE VTE Prophylaxis Ordered?: Yes VS, I&O, 24H, [facility] Vital Signs/I&O Vital Signs Date Time Temp Pulse Resp B/P (MAP) Pulse Ox O2 Delivery O2 Flow Rate FiO2 12/14/20 09:46 134/71 12/14/20 06:00 98.6 87 18 93 12/13/20 17:25 Room Air I&O- Last 24 Hours up to 6 AM 12/14/20 06:00 Intake Total 170 ml Output Total 450 ml Balance -280 ml Laboratory Data 24H LABS Laboratory Tests 2 12/13/20 12:13: Bedside Glucose (Misc Panel) 49L 12/13/20 12:14: Bedside Glucose (Misc Panel) 103 12/13/20 12:16: Bedside Glucose (Misc Panel) 113H 12/13/20 12:20: Lactic Acid Level 2.4*H 12/13/20 12:21: Immature Granulocyte % (Auto) 0.5, Neutrophils (%) (Auto) 84.2H, Lymphocytes (%) (Auto) 7.2L, Monocytes (%) (Auto) 7.2, Eosinophils (%) (Auto) 0.5, Basophils (%) (Auto) 0.4, Neutrophils # (Auto) 6.9, Lymphocytes # (Auto) 0.6L, Monocytes # (Auto) 0.6, Eosinophils # (Auto) 0.0, Basophils # (Auto) 0.0, Nucleated Red Blood Cells % (auto) 0.0, Prothrombin Time 14.9H, Prothromb Time International Ratio 1.14, Anion Gap 8, Glomerular Filtration Rate 52.0, Calcium Level 9.4, Total Bilirubin 1.3H, Aspartate Amino Transf (AST/SGOT) 29, Alanine Aminotransferase (ALT/SGPT) 16, Alkaline Phosphatase 103, Total Protein 7.4, Albumin 3.7, Albumin/Globulin Ratio 1.0 12/13/20 13:33: Urine Color YELLOW, Urine Appearance CLOUDYH, Urine pH 5.0, Urine Specific [place] 1.016, Urine Protein 1+H, Urine Glucose (UA) NEGATIVE, Urine Ketones NEGATIVE, Urine Blood NEGATIVE, Urine Nitrite NEGATIVE, Urine Bilirubin NEG ATIVE, Urine Urobilinogen 0.2, Urine Leukocyte Esterase 3+H, Urine WBC (Auto) TNTCH, Urine RBC (Auto) 5H, Urine Hyaline Casts (Auto) 0, Urine Bacteria (Auto) 1+H, Urine Squamous Epithelial Cells 0, Urine Mucus (Auto) SMALL, Urine Sperm (Auto) 12/13/20 13:55: Bedside Glucose (Misc Panel) 100 12/13/20 14:12: Coronavirus (COVID-19)(PCR) NEGATIVE, Influenza Type A (RT-PCR) NEGATIVE, Influenza Type B (RT-PCR) NEGATIVE, Respiratory Syncytial Virus (PCR) NEGATIVE 12/13/20 18:11: Lactic Acid Followup at 4 Hours 3.2*H 12/13/20 22:45: Lactic Acid Level 4.5*H 12/14/20 05:13: Lactic Acid Level 2.4*H, Immature Granulocyte % (Auto) 0.5, Neutrophils (%) (Auto) 84.1H, Lymphocytes (%) (Auto) 6.5L, Monocytes (%) (Auto) 8.3H, Eosinophils (%) (Auto) 0.3, Basophils (%) (Auto) 0.3, Neutrophils # (Auto) 6.4, Lymphocytes # (Auto) 0.5L, Monocytes # (Auto) 0.6, Eosinophils # (Auto) 0.0, Basophils # (Auto) 0.0, Nucleated Red Blood Cells % (auto) 0.0, Anion Gap 9, Glomerular Filtration Rate 52.0, Calcium Level 9.1, Triglycerides Level 70, Total Cholesterol 86, LDL Cholesterol 29, Non-HDL Cholesterol (LDL + VLDL) 43, Total HDL Cholesterol 43, Cholesterol/HDL Ratio 2.000 12/14/20 09:26: Lactic Acid Followup at 4 Hours 2.2*H CBC/BMP Laboratory Tests 12/13/20 12:21 12/14/20 05:13 Microbiology Microbiology 12/13/20 Blood Culture, Received Pending 12/13/20 Urine Culture - Final, Complete 12/13/20 Blood Culture, Received Pending ADOLPH GUERRA MD Dec 14, 2020 11:32
[2020-12-14 14:00] VITALS: BP 128/70
[2020-12-14] MEDS ORDERED: cefTRIAXone SOD 2 GM in D5W MINI-BAG PLUS 50 ML IV SCH (14:00)
[2020-12-14] MEDS: ATORVASTATIN 10 MG TAB PO SCH (20:10)
[2020-12-14] MEDS: TAMSULOSIN 0.4 MG CAP PO SCH (20:10)
[2020-12-14] MEDS: ENOXAPARIN 30MG/0.3ML SYRINGE (J1650 PER 10MG) SC SCH (20:11)
[2020-12-14 22:00] VITALS: BP 119/82
[2020-12-15 06:00] VITALS: BP 130/78
[2020-12-15] MEDS: NS 1,000 ML IV SCH (06:56)
[2020-12-15 07:08] LABS: BASO # 0.1 10^3/uL (0.0-0.2); BASO % 0.6 % (0.0-1.0); EOS % 0.5 % (0.0-3.0); HEMOGLOBIN 11.9 g/dl (13.5-17.5); LYMPH # 0.5 10^3/uL (1.5-5.0); LYMPH % 5.7 % (24.0-44.0); MEAN CORPUSCULAR HEMOGLOBIN 30.7 pg (27.0-33.0); MEAN CORPUSCULAR HGB CONC 31.3 g/dl (32.0-36.5); MEAN CORPUSCULAR VOLUME 97.9 fl (80.0-96.0); MONO # 0.6 10^3/uL (0.0-0.8); MONO % 7.3 % (2.0-8.0); NEUTROPHILS # 7.3 10^3/uL (1.5-8.5); NEUTROPHILS % 85.4 % (36.0-66.0); PLATELET COUNT, AUTOMATED 180 10^3/uL (150-450); RED BLOOD COUNT 3.88 10^6/uL (4.30-6.10); WHITE BLOOD COUNT 8.6 10^3/uL (4.0-10.0)
[2020-12-15 07:39] LABS: CALCIUM LEVEL 8.7 MG/DL (8.8-10.2); CREATININE FOR GFR 1.22 MG/DL (0.70-1.30); POTASSIUM SERUM 4.7 MEQ/L (3.5-5.1)
[2020-12-15] MEDS: OMEPRAZOLE 20 MG CAP PO SCH (09:00)
[2020-12-15] MEDS: ASPIRIN 81MG ENTERIC TABLET PO SCH (09:01)
[2020-12-15] MEDS: FINASTERIDE 5 MG TAB PO SCH (09:02)
[2020-12-15] MEDS: DULoxetine 20 MG CAP (CYMBALTA) PO SCH (09:02)
[2020-12-15] MEDS: ACETAMINOPHEN TAB 650MG DOSE (2X325MG) PO SCH ×3 (09:02→21:06)
[2020-12-15] MEDS: ISOSORBIDE MON. (IMDUR) 30 MG XR TAB PO SCH (09:06)
--- NOTE | 2020-12-15 11:32 | IPNPDOC ---
Text Note Date of Service The patient was seen on 12/15/20. NOTE Subjective: Patient seen and examined at bedside. No acute overnight events reported. Patient just finished his physical therapy. He notes generalized weakness. No other medical complaints this morning. Objective: General: NAD, elderly, lying comfortably in bed HEENT: NC/AT, EOMI Lungs: CTA B/L Heart: +S1S2, RRR Abd: soft, NT, +BS Ext: no edema, LLE contracted A/P: 84 year old male resident of [facility] assisted living has been deteriorating over the past 2 weeks. He has been confused and with increased incontinence. He had a fall 2 weeks ago and since then he has been just going down hill. This morning as per Assisted living staff patient woke up and was unable to ambulate at all and unable to do his ADLS. he had complained of back pain to the [place] staff. He was sent to the ED for evaluation. He was seen by his PMD 6 days ago for issues of weakness confusion and incontinence. At that time he complained of left leg pain and inability to put pressure on that leg. He had xray of the left hip and left femur done on 12/08 which showed arthritis and osteopenia. He was started on Cymbalta. Today to the ED provider he complained of right groin pain and right leg pain. ED staff tried to stand him up but he was too weak to bear weight and stand up. Labs were unremarkable except for mild increase in creatinine to 1.37 and he had a dirty UA. On my exam he complained of LEFT leg pain. He did not know the month or year or where he was. He thought he was in [facility] [place]. I reminded him that he was in the hospital and asked why he was here. He said that he was too "feeble" to stand up. I asked if he fell . He denied falling recently. When i reminded him that he had fallen last week he explained that sometimes he gets down to his knees if he drops something and cannot get up any more then the staff finds him down on his knees and think that he has fallen. His left leg pain in in the hip and thigh and knee sharp aching in nature he could not rate it. He also says that sometimes he has burning in his urine and he has difficulty in pushing the urine out. He was admitted for UTI, generalized weakness and confusion. #UTI ruled out UA dirty probably skin colonizer culture no growth. #age related physical debility He has sarcopenia, bitemporal wasting, wasting of small muscles of the hands. this is probably age related decreased appetite and loss of muscle mass leading to weakness. I do not believe he will get much stronger with Physical therapy but we can definitely again try. I anticipate he will need need NH placement. #Confusion I believe he has baseline cognitive impairment from his prior intracranial bleeds with encephalomalacia and age related dementia which is just getting worse and has reached a stage that he cannot manage at assisted living. There may be some acute delirium on top of dementia. No UTI. I am not sure if the recently started Cymbalta is making him confused or not. #Lacticacidosis he may have intravascular dehydration inspite of having peripheral edema on IVF, will hold lasix and spirololactone for 2 days. #Left/Right leg pain will continue with tylenol and cymbalta for now. xrays done for both legs do not show any acute fracture or dislocation. #BPH finasteride and flomax #CAD asa, isosorbide, statin Dose of statin reduced. As the pains he is complaining could be myalgias. Patient is loosing weight. #Chronic Afib rate controlled. Not on anticoagulation #Systolic and diastolic CHF appears euvolemic though CXR shows chronic venous congestion. will hold spironolactone and lasix for 2 days. Dispo: pending placement VS,Fishbone, I+O VS, Fishbone, I+O Laboratory Tests 12/15/20 06:12 Vital Signs Date Time Temp Pulse Resp B/P (MAP) Pulse Ox O2 Delivery O2 Flow Rate FiO2 12/15/20 09:06 118/78 12/15/20 06:00 97.6 84 20 97 12/14/20 14:00 Room Air I&O- Last 24 Hours up to 6 AM 12/15/20 06:00 Intake Total 2530 ml Output Total 0 ml Balance 2530 ml MOON MERRITT MD Dec 15, 2020 11:32
[2020-12-15 14:00] VITALS: BP 146/66
[2020-12-15] MEDS: DOCUSATE SODIUM 100MG CAPSULE PO PRN (16:38)
[2020-12-15] MEDS: SENNA 8.6 MG TAB (SENOKOT) PO PRN (16:38)
[2020-12-15] MEDS: ATORVASTATIN 10 MG TAB PO SCH (21:06)
[2020-12-15] MEDS: TAMSULOSIN 0.4 MG CAP PO SCH (21:06)
[2020-12-15] MEDS: ENOXAPARIN 30MG/0.3ML SYRINGE (J1650 PER 10MG) SC SCH (21:06)
[2020-12-15 22:00] VITALS: BP 124/59
[2020-12-16] MEDS: NS 1,000 ML IV SCH ×2 (03:58→16:34)
[2020-12-16 06:00] VITALS: BP 133/81
[2020-12-16 06:17] LABS: BASO % 0.3 % (0.0-1.0); EOS # 0.1 10^3/uL (0.0-0.5); EOS % 1.1 % (0.0-3.0); HEMATOCRIT 35.1 % (42.0-52.0); HEMOGLOBIN 11.1 g/dl (13.5-17.5); LYMPH # 0.5 10^3/uL (1.5-5.0); LYMPH % 5.1 % (24.0-44.0); MEAN CORPUSCULAR HEMOGLOBIN 31.1 pg (27.0-33.0); MEAN CORPUSCULAR HGB CONC 31.6 g/dl (32.0-36.5); MEAN CORPUSCULAR VOLUME 98.3 fl (80.0-96.0); MONO # 0.8 10^3/uL (0.0-0.8); NEUTROPHILS % 84.9 % (36.0-66.0); PLATELET COUNT, AUTOMATED 172 10^3/uL (150-450); RED BLOOD COUNT 3.57 10^6/uL (4.30-6.10); WHITE BLOOD COUNT 9.4 10^3/uL (4.0-10.0)
[2020-12-16 06:38] LABS: BLOOD UREA NITROGEN 31 MG/DL (7-18); CALCIUM LEVEL 8.1 MG/DL (8.8-10.2); CARBON DIOXIDE LEVEL 23 MEQ/L (21-32); CHLORIDE LEVEL 113 MEQ/L (98-107); GLOMERULAR FILTRATION RATE > 60.0 (>35); GLUCOSE, FASTING 106 MG/DL (70-100); POTASSIUM SERUM 4.2 MEQ/L (3.5-5.1); SODIUM LEVEL 144 MEQ/L (136-145)
[2020-12-16] MEDS: OMEPRAZOLE 20 MG CAP PO SCH (08:13)
[2020-12-16] MEDS: ASPIRIN 81MG ENTERIC TABLET PO SCH (08:13)
[2020-12-16] MEDS: FINASTERIDE 5 MG TAB PO SCH (08:13)
[2020-12-16] MEDS: ACETAMINOPHEN TAB 650MG DOSE (2X325MG) PO SCH ×3 (08:14→20:16)
[2020-12-16] MEDS: ISOSORBIDE MON. (IMDUR) 30 MG XR TAB PO SCH (08:14)
[2020-12-16] MEDS: MOM 30ML SUSPENSION UDC PO PRN (08:20)
[2020-12-16] MEDS: DOCUSATE SODIUM 100MG CAPSULE PO PRN ×2 (08:21→20:14)
[2020-12-16] MEDS: SENNA 8.6 MG TAB (SENOKOT) PO PRN ×2 (08:21→20:16)
[2020-12-16] MEDS: DULoxetine 20 MG CAP (CYMBALTA) PO SCH (08:21)
--- NOTE | 2020-12-16 11:49 | IPNPDOC ---
Text Note Date of Service The patient was seen on 12/16/20. NOTE Subjective: Patient seen and examined at bedside. No acute overnight events reported. Reports of difficulty with swallowing yesterday. No new medical complaints this morning. Objective: General: NAD, elderly, lying comfortably in bed HEENT: NC/AT, EOMI, bitemporal wasting Lungs: CTA B/L Heart: +S1S2, RRR Abd: soft, NT, +BS Ext: no edema A/P: 84 year old male resident of [facility] assisted living has been deteriorating over the past 2 weeks. He has been confused and with increased incontinence. He had a fall 2 weeks ago and since then he has been just going down hill. This morning as per Assisted living staff patient woke up and was unable to ambulate at all and unable to do his ADLS. he had complained of back pain to the [place] staff. He was sent to the ED for evaluation. He was seen by his PMD 6 days ago for issues of weakness confusion and incontinence. At that time he complained of left leg pain and inability to put pressure on that leg. He had xray of the left hip and left femur done on 12/08 which showed arthritis and osteopenia. He was started on Cymbalta. Today to the ED provider he complained of right groin pain and right leg pain. ED staff tried to stand him up but he was too weak to bear weight and stand up. Labs were unremarkable except for mild increase in creatinine to 1.37 and he had a dirty UA. On my exam he complained of LEFT leg pain. He did not know the month or year or where he was. He thought he was in [facility] [place]. I reminded him that he was in the hospital and asked why he was here. He said that he was too "feeble" to stand up. I asked if he fell . He denied falling recently. When i reminded him that he had fallen last week he explained that sometimes he gets down to his knees if he drops something and cannot get up any more then the staff finds him down on his knees and think that he has fallen. His left leg pain in in the hip and thigh and knee sharp aching in nature he could not rate it. He also says that sometimes he has burning in his urine and he has difficulty in pushing the urine out. He was admitted for UTI, generalized weakness and confusion. #dysphagia - swallow eval pending for today #UTI ruled out #age related physical debility #Confusion - baseline dementia #Lactic acidosis - on IVF, will hold lasix and spirololactone for 2 days. #Left/Right leg pain - will continue with tylenol and cymbalta for now. - xrays done for both legs do not show any acute fracture or dislocation. #BPH - finasteride and flomax #CAD - asa, isosorbide, statin #Chronic Afib - rate controlled. Not on anticoagulation #Systolic and diastolic CHF - appears euvolemic though CXR shows chronic venous congestion. - hold spironolactone and lasix for now Dispo: pending placement VS,Fishbone, I+O VS, Fishbone, I+O Laboratory Tests 12/16/20 05:50 Vital Signs Date Time Temp Pulse Resp B/P (MAP) Pulse Ox O2 Delivery O2 Flow Rate FiO2 12/16/20 08:14 139/63 12/16/20 06:00 97.4 68 18 91 12/15/20 14:00 Room Air I&O- Last 24 Hours up to 6 AM 12/16/20 06:00 Intake Total 2860 ml Output Total 0 ml Balance 2860 ml MOON MERRITT MD Dec 16, 2020 11:49
[2020-12-16 14:00] VITALS: BP 115/58
[2020-12-16] MEDS ORDERED: VARIBAR PUDDING 40% w/v 230ML TUBE As Ordered ONE (14:12)
[2020-12-16] MEDS ORDERED: E-Z-PAQUE 96% w/w SUSP 176GM BTL As Ordered ONE (14:13)
[2020-12-16] MEDS ORDERED: BARIUM SULFATE 700 MG TABLET (E-Z-DISK) As Ordered ONE (14:13)
[2020-12-16] MEDS ORDERED: VARIBAR NECTAR 40% w/v 240ML SUSP BTL As Ordered ONE (14:13)
--- NOTE | 2020-12-16 18:40 | REP ---
INDICATION: cough. COMPARISON: None. TECHNIQUE: The procedure was performed by Bisi Grady [facility], under the direct supervision of Dr. Caraballo. The procedure was performed with Albina Matos from speech pathology present. 5 ml aliquots of honey thick, nectar, pudding, mixed fruit with a putting base, soft food, thin, and pill consistency barium was administered. FINDINGS: Aspiration was visualized with the nectar thick consistency barium. Penetration was visualized with thin consistency barium. The detailed report of this examination will be provided by speech pathology. IMPRESSION: Both penetration and aspiration are visualized during this exam, a detailed report will be provided by speech pathology. 3.2 minutes of fluoroscopy time was utilized for this procedure. Some fluoroscopic images are performed with last image hold technology. These images require no additional radiation <Electronically signed by Bisi Grady > 12/16/20 1500 <Electronically signed by Lukas Caraballo > 12/16/20 [id number]
[2020-12-16 19:08] LABS: BASO % 0.4 % (0.0-1.0); EOS # 0.1 10^3/uL (0.0-0.5); EOS % 1.1 % (0.0-3.0); HEMATOCRIT 34.5 % (42.0-52.0); HEMOGLOBIN 10.8 g/dl (13.5-17.5); LYMPH # 0.4 10^3/uL (1.5-5.0); MEAN CORPUSCULAR HEMOGLOBIN 30.9 pg (27.0-33.0); MEAN CORPUSCULAR HGB CONC 31.3 g/dl (32.0-36.5); MEAN CORPUSCULAR VOLUME 98.9 fl (80.0-96.0); MONO # 0.8 10^3/uL (0.0-0.8); MONO % 7.6 % (2.0-8.0); NEUTROPHILS # 8.8 10^3/uL (1.5-8.5); NEUTROPHILS % 86.3 % (36.0-66.0); PLATELET COUNT, AUTOMATED 167 10^3/uL (150-450); RED BLOOD COUNT 3.49 10^6/uL (4.30-6.10); WHITE BLOOD COUNT 10.1 10^3/uL (4.0-10.0)
[2020-12-16 19:32] LABS: ALBUMIN 3.1 GM/DL (3.2-5.2); ALT/SGPT 43 U/L (12-78); BILIRUBIN,TOTAL 0.7 MG/DL (0.2-1.0); BLOOD UREA NITROGEN 30 MG/DL (7-18); CALCIUM LEVEL 8.3 MG/DL (8.8-10.2); CARBON DIOXIDE LEVEL 22 MEQ/L (21-32); CHLORIDE LEVEL 116 MEQ/L (98-107); CREATININE FOR GFR 1.02 MG/DL (0.70-1.30); GLOMERULAR FILTRATION RATE > 60.0 (>35); GLUCOSE, FASTING 127 MG/DL (70-100); POTASSIUM SERUM 4.5 MEQ/L (3.5-5.1); SODIUM LEVEL 146 MEQ/L (136-145); TOTAL PROTEIN 6.4 GM/DL (6.4-8.2)
[2020-12-16] MEDS: ENOXAPARIN 30MG/0.3ML SYRINGE (J1650 PER 10MG) SC SCH (20:14)
[2020-12-16] MEDS: TAMSULOSIN 0.4 MG CAP PO SCH (20:15)
[2020-12-16] MEDS: ATORVASTATIN 10 MG TAB PO SCH (20:15)
[2020-12-16 22:00] VITALS: BP 100/54
[2020-12-17] MEDS: NS 1,000 ML IV SCH (05:03)
[2020-12-17 06:00] VITALS: BP 128/77
[2020-12-17 06:20] LABS: BASO % 0.4 % (0.0-1.0); EOS # 0.2 10^3/uL (0.0-0.5); HEMATOCRIT 34.6 % (42.0-52.0); LYMPH # 0.6 10^3/uL (1.5-5.0); MEAN CORPUSCULAR HEMOGLOBIN 31.8 pg (27.0-33.0); MEAN CORPUSCULAR HGB CONC 31.8 g/dl (32.0-36.5); MONO # 0.7 10^3/uL (0.0-0.8); NEUTROPHILS # 7.6 10^3/uL (1.5-8.5); NEUTROPHILS % 82.9 % (36.0-66.0); PLATELET COUNT, AUTOMATED 156 10^3/uL (150-450); RED BLOOD COUNT 3.46 10^6/uL (4.30-6.10); WHITE BLOOD COUNT 9.2 10^3/uL (4.0-10.0)
[2020-12-17 06:45] LABS: BLOOD UREA NITROGEN 27 MG/DL (7-18); CALCIUM LEVEL 8.5 MG/DL (8.8-10.2); CARBON DIOXIDE LEVEL 24 MEQ/L (21-32); CHLORIDE LEVEL 115 MEQ/L (98-107); CREATININE FOR GFR 1.16 MG/DL (0.70-1.30); GLOMERULAR FILTRATION RATE > 60.0 (>35); GLUCOSE, FASTING 98 MG/DL (70-100); POTASSIUM SERUM 5.1 MEQ/L (3.5-5.1); SODIUM LEVEL 144 MEQ/L (136-145)
[2020-12-17] MEDS: DULoxetine 20 MG CAP (CYMBALTA) PO SCH (09:33)
[2020-12-17] MEDS: FINASTERIDE 5 MG TAB PO SCH (09:33)
[2020-12-17] MEDS: OMEPRAZOLE 20 MG CAP PO SCH (09:33)
[2020-12-17] MEDS: ASPIRIN 81MG ENTERIC TABLET PO SCH (09:33)
[2020-12-17] MEDS: ACETAMINOPHEN TAB 650MG DOSE (2X325MG) PO SCH ×3 (09:33→21:59)
[2020-12-17] MEDS: ISOSORBIDE MON. (IMDUR) 30 MG XR TAB PO SCH (09:34)
--- NOTE | 2020-12-17 09:59 | IPNPDOC ---
Text Note Date of Service The patient was seen on 12/17/20. NOTE Subjective: Patient seen and examined at bedside. Patient voices no complaints this morning. Confused. Concerns for possible aspiration. Objective: General: NAD, elderly, lying comfortably in bed HEENT: NC/AT, EOMI, bitemporal wasting Lungs: b/l basilar crackles, coarse breath sounds Heart: +S1S2, irregular Abd: soft, NT, +BS Ext: no edema A/P: 84 year old male resident of [facility] assisted living has been deteriorating over the past 2 weeks. He has been confused and with increased incontinence. He had a fall 2 weeks ago and since then he has been just going down hill. This morning as per Assisted living staff patient woke up and was unable to ambulate at all and unable to do his ADLS. he had complained of back pain to the [place] staff. He was sent to the ED for evaluation. He was seen by his PMD 6 days ago for issues of weakness confusion and incontinence. At that time he complained of left leg pain and inability to put pressure on that leg. He had xray of the left hip and left femur done on 12/08 which showed arthritis and osteopenia. He was started on Cymbalta. Today to the ED provider he complained of right groin pain and right leg pain. ED staff tried to stand him up but he was too weak to bear weight and stand up. Labs were unremarkable except for mild increase in creatinine to 1.37 and he had a dirty UA. On my exam he complained of LEFT leg pain. He did not know the month or year or where he was. He thought he was in [facility] [place]. I reminded him that he was in the hospital and asked why he was here. He said that he was too "feeble" to stand up. I asked if he fell . He denied falling recently. When i reminded him that he had fallen last week he explained that sometimes he gets down to his knees if he drops something and cannot get up any more then the staff finds him down on his knees and think that he has fallen. His left leg pain in in the hip and thigh and knee sharp aching in nature he could not rate it. He also says that sometimes he has burning in his urine and he has difficulty in pushing the urine out. He was admitted for UTI, generalized weakness and confusion. #dysphagia - swallow eval completed - possible aspiration - CXR pending - check ABG, sputum cultures #UTI ruled out #age related physical debility #Confusion - baseline dementia #Lactic acidosis - dc IVF, resume lasix today #Left/Right leg pain - will continue with tylenol and cymbalta for now. - xrays done for both legs do not show any acute fracture or dislocation. #BPH - finasteride and flomax #CAD/[place]/stents - asa, isosorbide, statin #Chronic Afib - rate controlled. 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
[2020-12-17 10:09] LABS: ABG BASE EXCESS -3.7 (-2.0-2.0); ABG HCO3 19.3 MEQ/L (22.0-26.0); ABG O2 SATURATION 93.8 % (95.0-99.0); ABG PARTIAL PRESSURE CO2 28.8 mmHg (35.0-45.0); ABG PARTIAL PRESSURE O2 67.9 mmHg (75.0-100.0); ABG STANDARD HCO3 21.3 MEQ/L (22.0-26.0); ABG TOTAL CO2 20.1 MEQ/L (23.0-31.0); ABG pH (ARTERIAL) 7.443 UNITS (7.350-7.450)
[2020-12-17] MEDS ORDERED: BISACODYL 10 MG SUPP PR ONE (10:15)
--- NOTE | 2020-12-17 10:28 | REP ---
INDICATION: sob COMPARISON: 12/13/2020 TECHNIQUE: PA and lateral. FINDINGS: Cardiomegaly. Diffuse interstitial and alveolar opacities with indistinct central pulmonary vasculature most compatible with CHF and pulmonary edema. Small pleural effusions are noted. Skeletal structures are stable. IMPRESSION: Findings most compatible with CHF/pulmonary edema. <Electronically signed by Jose Ferrara > 12/17/20 [id number]
[2020-12-17 10:40] LABS: NT-PRO BNP 25796 PG/ML (<450)
[2020-12-17] MEDS: FUROSEMIDE 40 MG TAB PO SCH ×2 (10:45→16:43)
[2020-12-17] MEDS ORDERED: FUROSEMIDE 40MG/4ML VIAL (J1940) IV ONE (12:00)
[2020-12-17 14:44] LABS: MAGNESIUM LEVEL 2.4 MG/DL (1.8-2.4)
[2020-12-17 14:50] VITALS: BP 129/72
[2020-12-17 15:39] LABS: CK-MB VALUE MASS 14.9 NG/ML (<3.6); MB/CK RELATIVE INDEX 1.29 (< OR =4); TROPONIN I 0.33 NG/ML (< 0.10)
[2020-12-17 16:00] VITALS: BP 127/72
[2020-12-17 19:28] LABS: CK-MB VALUE MASS 13.4 NG/ML (<3.6); MB/CK RELATIVE INDEX 1.38 (< OR =4); TROPONIN I 0.33 NG/ML (< 0.10)
[2020-12-17 20:00] VITALS: BP 122/74
[2020-12-17] MEDS: TAMSULOSIN 0.4 MG CAP PO SCH (21:58)
[2020-12-17] MEDS: ATORVASTATIN 10 MG TAB PO SCH (21:59)
[2020-12-17] MEDS: ENOXAPARIN 30MG/0.3ML SYRINGE (J1650 PER 10MG) SC SCH (21:59)
[2020-12-18] VITALS: BP 128/57
[2020-12-18 00:31] LABS: CK-MB VALUE MASS 12.4 NG/ML (<3.6); MB/CK RELATIVE INDEX 1.44 (< OR =4); TROPONIN I 0.32 NG/ML (< 0.10)
[2020-12-18 04:00] VITALS: BP 116/61
[2020-12-18 04:40] LABS: BASO # 0.1 10^3/uL (0.0-0.2); BASO % 0.6 % (0.0-1.0); EOS # 0.2 10^3/uL (0.0-0.5); EOS % 2.5 % (0.0-3.0); HEMATOCRIT 34.4 % (42.0-52.0); HEMOGLOBIN 10.4 g/dl (13.5-17.5); LYMPH # 0.6 10^3/uL (1.5-5.0); LYMPH % 7.2 % (24.0-44.0); MEAN CORPUSCULAR HEMOGLOBIN 30.4 pg (27.0-33.0); MEAN CORPUSCULAR HGB CONC 30.2 g/dl (32.0-36.5); MEAN CORPUSCULAR VOLUME 100.6 fl (80.0-96.0); MONO # 0.6 10^3/uL (0.0-0.8); MONO % 7.6 % (2.0-8.0); NEUTROPHILS # 6.6 10^3/uL (1.5-8.5); NEUTROPHILS % 81.7 % (36.0-66.0); PLATELET COUNT, AUTOMATED 155 10^3/uL (150-450); RED BLOOD COUNT 3.42 10^6/uL (4.30-6.10)
[2020-12-18 04:58] LABS: BLOOD UREA NITROGEN 23 MG/DL (7-18); CALCIUM LEVEL 8.6 MG/DL (8.8-10.2); CARBON DIOXIDE LEVEL 26 MEQ/L (21-32); CHLORIDE LEVEL 113 MEQ/L (98-107); CREATININE FOR GFR 1.11 MG/DL (0.70-1.30); GLOMERULAR FILTRATION RATE > 60.0 (>35); GLUCOSE, FASTING 103 MG/DL (70-100); POTASSIUM SERUM 4.1 MEQ/L (3.5-5.1); SODIUM LEVEL 144 MEQ/L (136-145)
[2020-12-18 05:01] LABS: MAGNESIUM LEVEL 2.4 MG/DL (1.8-2.4); PHOSPHORUS LEVEL 2.9 MG/DL (2.5-4.9)
[2020-12-18 07:03] LABS: NT-PRO BNP 26422 PG/ML (<450)
[2020-12-18 08:00] VITALS: BP 127/71
[2020-12-18] MEDS: ISOSORBIDE MON. (IMDUR) 30 MG XR TAB PO SCH (08:01)
[2020-12-18] MEDS: FUROSEMIDE 40MG/4ML VIAL (J1940) IV SCH ×2 (08:01→16:10)
[2020-12-18] MEDS: ACETAMINOPHEN TAB 650MG DOSE (2X325MG) PO SCH ×3 (08:01→21:32)
[2020-12-18] MEDS: ASPIRIN 81MG ENTERIC TABLET PO SCH (08:01)
[2020-12-18] MEDS: FINASTERIDE 5 MG TAB PO SCH (08:01)
[2020-12-18] MEDS: DULoxetine 20 MG CAP (CYMBALTA) PO SCH (08:01)
[2020-12-18] MEDS: OMEPRAZOLE 20 MG CAP PO SCH (08:02)
--- NOTE | 2020-12-18 09:15 | ECGEPIP ---
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
[2020-12-18] MEDS ORDERED: SLF 3 ML SYR IV PRN (09:25)
--- NOTE | 2020-12-18 09:28 | IPNPDOC ---
Text Note Date of Service The patient was seen on 12/18/20. NOTE Subjective: Patient seen and examined at bedside. Patient voices no complaints this morning. His mentation has improved, but still some baseline confusion. Objective: General: NAD, elderly, lying comfortably in bed HEENT: NC/AT, EOMI, bitemporal wasting Lungs: b/l basilar crackles Heart: +S1S2, irregular Abd: soft, NT, +BS Ext: no edema, contracted A/P: 84 year old male resident of [facility] assisted living has been deteriorating over the past 2 weeks. He has been confused and with increased incontinence. He had a fall 2 weeks ago and since then he has been just going down hill. This morning as per Assisted living staff patient woke up and was unable to ambulate at all and unable to do his ADLS. he had complained of back pain to the [place] staff. He was sent to the ED for evaluation. He was seen by his PMD 6 days ago for issues of weakness confusion and incontinence. At that time he complained of left leg pain and inability to put pressure on that leg. He had xray of the left hip and left femur done on 12/08 which showed arthritis and osteopenia. He was started on Cymbalta. Today to the ED provider he complained of right groin pain and right leg pain. ED staff tried to stand him up but he was too weak to bear weight and stand up. Labs were unremarkable except for mild increase in creatinine to 1.37 and he had a dirty UA. On my exam he complained of LEFT leg pain. He did not know the month or year or where he was. He thought he was in [facility] [place]. I reminded him that he was in the hospital and asked why he was here. He said that he was too "feeble" to stand up. I asked if he fell . He denied falling recently. When i reminded him that he had fallen last week he explained that sometimes he gets down to his knees if he drops something and cannot get up any more then the staff finds him down on his knees and think that he has fallen. His left leg pain in in the hip and thigh and knee sharp aching in nature he could not rate it. He also says that sometimes he has burning in his urine and he has diffi culty in pushing the urine out. He was admitted for UTI, generalized weakness and confusion. #CHF - acute on chronic with systolic and diastolic dysfunction - repeat echo report pending - elevated BNP, fluid on CXR - however no edema and saturating well on room air - cardiology c/s pending - receiving IV lasix pending further evaluation #dysphagia - swallow eval completed - check ABG, sputum cultures #UTI ruled out #age related physical debility #Confusion - baseline dementia #Lactic acidosis - dc IVF, resume lasix today #Left/Right leg pain - will continue with tylenol and cymbalta for now. - xrays done for both legs do not show any acute fracture or dislocation. #BPH - finasteride and flomax #CAD/[place]/stents - asa, isosorbide, statin #Chronic Afib - rate controlled. 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
--- NOTE | 2020-12-18 10:43 | ECHO ---
DATE OF PROCEDURE: 12/17/2020 Age: 84 Gender: Male Height: 173 cm Weight: 67 kg REFERRING PHYSICIAN: Carlos Diggs M.D. INDICATION: Heart failure, unspecified. MEASUREMENTS: 2D Measurements: Intraventricular septum 1.15 cm Posterior wall 0.97 cm Left ventricle diastole 4.9 cm LVOT 2.0 cm Left atrium 5.0 cm Left atrial volume index 36 cm Inferior vena cava 2.5 cm Doppler Measurements: No aortic stenosis No aortic regurgitation Aortic valve velocity 113 cm/s LVOT velocity 74.2 cm/s LVOT VTI 12.1 cm No mitral stenosis No mitral regurgitation Mitral E velocity (continuous wave) 176 cm/s Mean mitral pressure gradient 4 mmHg Mild tricuspid regurgitation Estimated right ventricular systolic pressure 33-38 mmHg Estimated right atrial pressure 5-10 mmHg Mild pulmonic regurgitation Pulmonary artery acceleration time 74 msec consistent with moderate elevation of pulmonary artery systolic pressure. MITRAL ANNULAR TISSUE DOPPLER E prime septal 3.8 cm/s, E prime lateral 9.9 cm/s DESCRIPTION: Rhythm appeared to be atrial fibrillation with LBBB morphology and frequent PVCs. Image quality was fair. This was a 2D, M-mode, color flow Doppler, and pulsed wave Doppler examination including mitral annular tissue Doppler. CONCLUSIONS: 1. Normal left ventricle internal dimensions and wall thickness. Paradoxical septal motion with normal regional wall motion and wall thickening of the LV free gilmore elsewhere. Severe reduction of overall LV systolic function. LVEF 30- 35% by visual estimate. Unable to assess LV diastolic function in the setting of status post mitral valve bioprosthesis and atrial fibrillation. 2. Moderate left atrial dilatation by left atrial volume index. 3. Well-seated and structurally and functionally normal mitral valve bioprosthesis. 4. Moderate aortic valve sclerosis of a 3-cuspid aortic valve. No aortic stenosis or regurgitation. 5. Suggestive of moderate elevation of pulmonary artery systolic pressure. 6. Normal right ventricle size and systolic function. Severe right atrial dilatation by visual assessment. 7. Inferior vena cava dilatation. 8. No pericardial effusion. MTDD
[2020-12-18 12:00] VITALS: BP 125/60
[2020-12-18] MEDS: SLF 3 ML SYR IV SCH ×2 (14:00→21:36)
[2020-12-18 16:00] VITALS: BP 106/53
[2020-12-18 20:00] VITALS: BP 125/69
[2020-12-18] MEDS: ATORVASTATIN 10 MG TAB PO SCH (21:32)
[2020-12-18] MEDS: TAMSULOSIN 0.4 MG CAP PO SCH (21:32)
[2020-12-18] MEDS: ENOXAPARIN 30MG/0.3ML SYRINGE (J1650 PER 10MG) SC SCH (21:36)
[2020-12-18] MEDS: CARVedilol 3.125 MG TAB PO SCH (21:36)
[2020-12-19] VITALS: BP 136/87
[2020-12-19 04:00] VITALS: BP 131/66
[2020-12-19 04:16] LABS: BASO # 0.1 10^3/uL (0.0-0.2); BASO % 0.7 % (0.0-1.0); EOS # 0.3 10^3/uL (0.0-0.5); EOS % 2.9 % (0.0-3.0); HEMATOCRIT 35.8 % (42.0-52.0); HEMOGLOBIN 11.3 g/dl (13.5-17.5); LYMPH # 0.6 10^3/uL (1.5-5.0); LYMPH % 6.6 % (24.0-44.0); MEAN CORPUSCULAR HEMOGLOBIN 31.1 pg (27.0-33.0); MEAN CORPUSCULAR HGB CONC 31.6 g/dl (32.0-36.5); MEAN CORPUSCULAR VOLUME 98.6 fl (80.0-96.0); MONO # 0.6 10^3/uL (0.0-0.8); MONO % 6.8 % (2.0-8.0); NEUTROPHILS # 7.3 10^3/uL (1.5-8.5); NEUTROPHILS % 82.5 % (36.0-66.0); PLATELET COUNT, AUTOMATED 177 10^3/uL (150-450); RED BLOOD COUNT 3.63 10^6/uL (4.30-6.10); WHITE BLOOD COUNT 8.9 10^3/uL (4.0-10.0)
[2020-12-19 04:36] LABS: BLOOD UREA NITROGEN 24 MG/DL (7-18); CALCIUM LEVEL 8.6 MG/DL (8.8-10.2); CARBON DIOXIDE LEVEL 27 MEQ/L (21-32); CHLORIDE LEVEL 110 MEQ/L (98-107); CREATININE FOR GFR 1.11 MG/DL (0.70-1.30); GLOMERULAR FILTRATION RATE > 60.0 (>35); GLUCOSE, FASTING 100 MG/DL (70-100); POTASSIUM SERUM 3.9 MEQ/L (3.5-5.1); SODIUM LEVEL 146 MEQ/L (136-145)
[2020-12-19] MEDS: SLF 3 ML SYR IV SCH ×3 (06:52→21:21)
[2020-12-19] MEDS: DULoxetine 20 MG CAP (CYMBALTA) PO SCH (08:49)
[2020-12-19] MEDS: FUROSEMIDE 40MG/4ML VIAL (J1940) IV SCH ×2 (08:49→16:30)
[2020-12-19] MEDS: FINASTERIDE 5 MG TAB PO SCH (08:49)
[2020-12-19] MEDS: ASPIRIN 81MG ENTERIC TABLET PO SCH (08:50)
[2020-12-19] MEDS: OMEPRAZOLE 20 MG CAP PO SCH (08:50)
[2020-12-19] MEDS: ISOSORBIDE MON. (IMDUR) 30 MG XR TAB PO SCH (08:51)
[2020-12-19] MEDS: ACETAMINOPHEN TAB 650MG DOSE (2X325MG) PO SCH ×3 (08:51→21:00)
[2020-12-19] MEDS: CARVedilol 3.125 MG TAB PO SCH ×2 (08:53→21:00)
--- NOTE | 2020-12-19 10:28 | IPNPDOC ---
Text Note Date of Service The patient was seen on 12/19/20. NOTE HPI: Patient examined at bedside. He denies any chest pain, palpitation, dyspnea, abdominal pain or groin/hip pain. Patient reported that he is doing well. He can answer his name and that he is at [facility]. He reported productive cough with phlegm, reported some blood in sputum yesterday but not anymore. Denies any fever or chills. It was noted that patient was eating breakfast without problem. Patient denies any dysphagia/choking. No fall was noted. It was noted that patient had frequent ectopy with 3-4 beats of V tach Physical exam: General: Not in acute distress, elderly male appears to be stated age, lying comfortably in bed HEENT: Normocephalic, atraumatic, bitemporal wasting appears to be chronic Lungs: Clear to auscultation bilaterally, no accessory muscle use or labored breathing Heart: irregularly irregular rhythm, no obvious murmur noted Abd: soft, non-tender to palpation in all 4 quadrants, no guarding or distention. Ext: no edema in bilateral lower extremity Neuro: A&O to name and place. CN 2-12 grossly intact. Strength +4/5 in b/l upper extremities and +3/5 in bilateral lower extremities. Inconsistent answers A/P: Patient is a 84 year old male resident of [facility] assisted living who was noted to had been deteroiating with confusion and increased incontinence. Of note patient had a fall 2 weeks ago. Per Assisted living staff patient woke up and was unable to ambulate with inability to do his ADLS, and that patient had complained of back pain to [facility] staff. 12/08/20 XR of the left hip and left femur showed arthritis and osteopenia. He was started on Cymbalta. Upon presentation to [facility] ED provider he complained of right groin pain and right leg pain, and that it was noted that pt was unable to bear weight and stand up. Upon admission patient complained of left leg pain and was not oriented to time and place. #CHF - acute on chronic with systolic and diastolic dysfunction. - repeat echo showed LVEF 30-35%, LV diastolic function unable to be assessed in the setting of mitral valve bioprosthesis and atrial fibrillation. Cardiology c/s pending, and we appreciate cardiology team's assistance in patient care. - elevated BNP, fluid on CXR. Cont IV lasix 40mg BID. Repeat BNP 12/20/2020 -pt continues to have no b/l LE edema and sat. well on room air #dysphagia - swallow eval recommended diet modification - Sputum culture showed yeast like organisms likely due to oral jose as patient had no fever/chills noted and CXR 12/17/20 showed findings compatible with CHF/pulmonary edema. Ordered nystatin mouth wash -aspiration precaution #UTI ruled out -Urine culture showed no growth #Age related physical debility -PT/OT recommended to continue rehab after discharge # Dementia -likely baseline dementia -CT head 12/13 showed encephalomalacia with prior right frontal craniotomy #Lactic acidosis, improved - may be related with decreased EF, cardiology c/s pending, and we appreciate cardiology team's input #History of left/Right leg pain - Patient denies pain in either lower extremities - continue with tylenol and cymbalta - hip/pelvis XR 12/13 showed no dacute fracture or dislocation #BPH - Continue with finasteride and flomax #History of CAD/[place]/stents - Continue with Coreg, aspirin, isosorbide, statin #Chronic Afib - rate controlled. Not on anticoagulation noted to be due to brain bleed - continue vital signs - EF estimated to be 30-35%, cardiology consulted, and we appreciate cardiology team's input #HTN -Continue home med Coreg -vitals signs #HLD -Continue home med statin and aspirin #history of intracranial hemorrhage -Continue to hold anticoagulation for a. fib at this time DVT prophylaxis: lovenox Attending Note: Patient seen and examined independently. Agree with resident's note and plan of care. VS,Fishbone, I+O VS, Fishbone, I+O Laboratory Tests 12/19/20 03:33 Vital Signs Date Time Temp Pulse Resp B/P (MAP) Pulse Ox O2 Delivery O2 Flow Rate FiO2 12/19/20 08:53 95 115/82 12/19/20 04:00 97.1 16 95 Room Air I&O- Last 24 Hours up to 6 AM 12/19/20 05:59 Intake Total 630 ml Output Total 1025 ml Balance -395 ml RADHA MENEZES DO Dec 19, 2020 10:28 MOON MERRITT MD Dec 21, 2020 18:41
[2020-12-19 12:00] VITALS: BP 113/55
[2020-12-19] MEDS: NYSTATIN 500,000 U/5 ML SUSP UDC SSP SCH ×3 (12:49→21:20)
[2020-12-19 16:00] VITALS: BP 97/50
[2020-12-19 20:03] VITALS: BP 96/53
[2020-12-19] MEDS: TAMSULOSIN 0.4 MG CAP PO SCH (21:19)
[2020-12-19] MEDS: ATORVASTATIN 10 MG TAB PO SCH (21:19)
[2020-12-19] MEDS: ENOXAPARIN 30MG/0.3ML SYRINGE (J1650 PER 10MG) SC SCH (21:20)
[2020-12-20] VITALS: BP 130/65
[2020-12-20 04:00] VITALS: BP 114/57
[2020-12-20 05:51] LABS: BASO # 0.1 10^3/uL (0.0-0.2); BASO % 0.7 % (0.0-1.0); EOS # 0.3 10^3/uL (0.0-0.5); EOS % 3.4 % (0.0-3.0); HEMOGLOBIN 11.5 g/dl (13.5-17.5); LYMPH # 0.6 10^3/uL (1.5-5.0); MEAN CORPUSCULAR HEMOGLOBIN 30.4 pg (27.0-33.0); MEAN CORPUSCULAR HGB CONC 31.1 g/dl (32.0-36.5); MEAN CORPUSCULAR VOLUME 97.9 fl (80.0-96.0); MONO # 0.5 10^3/uL (0.0-0.8); MONO % 6.6 % (2.0-8.0); NEUTROPHILS # 6.2 10^3/uL (1.5-8.5); NEUTROPHILS % 80.9 % (36.0-66.0); PLATELET COUNT, AUTOMATED 182 10^3/uL (150-450); RED BLOOD COUNT 3.78 10^6/uL (4.30-6.10); WHITE BLOOD COUNT 7.7 10^3/uL (4.0-10.0)
[2020-12-20] MEDS: SLF 3 ML SYR IV SCH ×3 (06:00→21:09)
[2020-12-20 06:15] LABS: BLOOD UREA NITROGEN 27 MG/DL (7-18); CALCIUM LEVEL 8.6 MG/DL (8.8-10.2); CARBON DIOXIDE LEVEL 29 MEQ/L (21-32); CHLORIDE LEVEL 110 MEQ/L (98-107); GLOMERULAR FILTRATION RATE > 60.0 (>35); GLUCOSE, FASTING 103 MG/DL (70-100); POTASSIUM SERUM 3.9 MEQ/L (3.5-5.1); SODIUM LEVEL 145 MEQ/L (136-145)
[2020-12-20 08:00] VITALS: BP 122/73
[2020-12-20] MEDS: NYSTATIN 500,000 U/5 ML SUSP UDC SSP SCH ×4 (08:51→21:09)
[2020-12-20] MEDS: FINASTERIDE 5 MG TAB PO SCH (08:52)
[2020-12-20] MEDS: FUROSEMIDE 40MG/4ML VIAL (J1940) IV SCH ×2 (08:52→16:04)
[2020-12-20] MEDS: CARVedilol 3.125 MG TAB PO SCH ×2 (08:52→21:07)
[2020-12-20] MEDS: ACETAMINOPHEN TAB 650MG DOSE (2X325MG) PO SCH ×3 (08:53→21:08)
[2020-12-20] MEDS: ISOSORBIDE MON. (IMDUR) 30 MG XR TAB PO SCH (08:53)
[2020-12-20] MEDS: ASPIRIN 81MG ENTERIC TABLET PO SCH (08:53)
[2020-12-20] MEDS: DULoxetine 20 MG CAP (CYMBALTA) PO SCH (08:53)
[2020-12-20] MEDS: OMEPRAZOLE 20 MG CAP PO SCH (08:53)
--- NOTE | 2020-12-20 11:02 | IPNPDOC ---
Text Note Date of Service The patient was seen on 12/20/20. NOTE Subjective: Patient seen and examined at bedside. Patient voices no complaints this morning. His mentation continues to improved, but still some baseline confusion. Objective: General: NAD, elderly, lying comfortably in bed HEENT: NC/AT, EOMI, bitemporal wasting Lungs: b/l basilar crackles Heart: +S1S2, irregular Abd: soft, NT, +BS Ext: no edema, contracted A/P: 84 year old male resident of [facility] assisted living has been deteriorating over the past 2 weeks. He has been confused and with increased incontinence. He had a fall 2 weeks ago and since then he has been just going down hill. This morning as per Assisted living staff patient woke up and was unable to ambulate at all and unable to do his ADLS. he had complained of back pain to the [place] staff. He was sent to the ED for evaluation. He was seen by his PMD 6 days ago for issues of weakness confusion and incontinence. At that time he complained of left leg pain and inability to put pressure on that leg. He had xray of the left hip and left femur done on 12/08 which showed arthritis and osteopenia. He was started on Cymbalta. Today to the ED provider he complained of right groin pain and right leg pain. ED staff tried to stand him up but he was too weak to bear weight and stand up. Labs were unremarkable except for mild increase in creatinine to 1.37 and he had a dirty UA. On my exam he complained of LEFT leg pain. He did not know the month or year or where he was. [place] [facility] [place] reminded him that he was in the hospital and asked why he was here. He said that he was too "feeble" to stand up. I asked if he fell . He denied falling recently. When i reminded him that he had fallen last week he explained that sometimes he gets down to his knees if he drops something and cannot get up any more then the staff finds him down on his knees and think that he has fallen. His left leg pain in in the hip and thigh and knee sharp aching in nature he could not rate it. He also says that sometimes he has burning in his urine and he has difficulty in pushing the urine out. He was admitted for UTI, generalized weakness and confusion. #CHF - acute on chronic with systolic and diastolic dysfunction - repeat echo completed - severe systolic LVEF dysfunction 30-35%, unable to assess diastolic dysfunction - elevated BNP, fluid on CXR - however no edema and saturating well on room air - cardiology c/s pending - receiving IV lasix #dysphagia - swallow eval completed #UTI ruled out #age related physical debility #Confusion - baseline dementia #Lactic acidosis - resolved #Left/Right leg pain - will continue with tylenol and cymbalta for now. - xrays done for both legs do not show any acute fracture or dislocation. #BPH - finasteride and flomax #CAD/[place]/stents - asa, isosorbide, statin #Chronic Afib - carvedilol - rate controlled. Not on anticoagulation #HTN - carvedilol #HLD - statin therapy #right parietal lobe/subarachnoid/right frontal hemorrhage #mitral valve replacement/tricuspid repair #Hx MRSA/Klebsiella PNA #Hx SIADH #AAA VS,Fishbone, I+O VS, Fishbone, I+O Laboratory Tests 12/20/20 05:35 Vital Signs Date Time Temp Pulse Resp B/P (MAP) Pulse Ox O2 Delivery O2 Flow Rate FiO2 12/20/20 08:53 110/66 12/20/20 08:52 94 12/20/20 08:00 97.3 18 94 Room Air I&O- Last 24 Hours up to 6 AM 12/20/20 06:00 Intake Total 1018 ml Output Total 300 ml Balance 718 ml MOON MERRITT MD Dec 20, 2020 11:02
[2020-12-20 12:00] VITALS: BP 119/72
[2020-12-20 15:55] VITALS: BP 113/69
[2020-12-20 20:00] VITALS: BP 101/57
[2020-12-20] MEDS: ATORVASTATIN 10 MG TAB PO SCH (21:06)
[2020-12-20] MEDS: TAMSULOSIN 0.4 MG CAP PO SCH (21:07)
[2020-12-20] MEDS: ENOXAPARIN 30MG/0.3ML SYRINGE (J1650 PER 10MG) SC SCH (21:09)
[2020-12-21] VITALS: BP 95/58
[2020-12-21 04:00] VITALS: BP 113/59
[2020-12-21] MEDS: SLF 3 ML SYR IV SCH ×3 (06:30→22:00)
[2020-12-21 08:00] VITALS: BP 116/64
[2020-12-21 09:02] LABS: HEMATOCRIT 38.2 % (42.0-52.0); HEMOGLOBIN 11.9 g/dl (13.5-17.5); MEAN CORPUSCULAR HEMOGLOBIN 30.7 pg (27.0-33.0); MEAN CORPUSCULAR HGB CONC 31.2 g/dl (32.0-36.5); MEAN CORPUSCULAR VOLUME 98.7 fl (80.0-96.0); PLATELET COUNT, AUTOMATED 184 10^3/uL (150-450); RED BLOOD COUNT 3.87 10^6/uL (4.30-6.10); WHITE BLOOD COUNT 7.3 10^3/uL (4.0-10.0)
[2020-12-21 09:37] LABS: ALBUMIN 3.4 GM/DL (3.2-5.2); BILIRUBIN,TOTAL 1.2 MG/DL (0.2-1.0); CALCIUM LEVEL 8.6 MG/DL (8.8-10.2); CK-MB VALUE MASS 5.5 NG/ML (<3.6); CREATININE FOR GFR 1.22 MG/DL (0.70-1.30); MAGNESIUM LEVEL 2.6 MG/DL (1.8-2.4); MB/CK RELATIVE INDEX 2.24 (< OR =4); POTASSIUM SERUM 3.6 MEQ/L (3.5-5.1); TROPONIN I 0.27 NG/ML (< 0.10)
[2020-12-21] MEDS: NYSTATIN 500,000 U/5 ML SUSP UDC SSP SCH ×4 (10:03→20:27)
[2020-12-21] MEDS: ASPIRIN 81MG ENTERIC TABLET PO SCH (10:03)
[2020-12-21] MEDS: OMEPRAZOLE 20 MG CAP PO SCH (10:04)
[2020-12-21] MEDS: FINASTERIDE 5 MG TAB PO SCH (10:04)
[2020-12-21] MEDS: FUROSEMIDE 40MG/4ML VIAL (J1940) IV SCH ×2 (10:04→17:00)
[2020-12-21] MEDS: CARVedilol 3.125 MG TAB PO SCH ×2 (10:07→20:28)
[2020-12-21] MEDS: ACETAMINOPHEN TAB 650MG DOSE (2X325MG) PO SCH ×3 (10:07→20:28)
[2020-12-21] MEDS: ISOSORBIDE MON. (IMDUR) 30 MG XR TAB PO SCH (10:08)
[2020-12-21] MEDS: DULoxetine 20 MG CAP (CYMBALTA) PO SCH (10:08)
[2020-12-21 12:00] VITALS: BP 112/61
--- NOTE | 2020-12-21 14:54 | IPNPDOC ---
Subjective Date Seen The patient was seen on 12/21/20. Subjective Chief Complaint/HPI Subjective: The patient was seen at bedside this morning. It is AAO 1 only to person. It is unknown with the patient's baseline mentation is and will need to contact patient's proxy to determine that. Overnight patient had 2 episodes of 7 beats V. tach and the nurse reported the patient had 9 beats of V. tach this morning. Patient is not symptomatic and electrolytes are within normal limits. Patient denies any chest pain, shortness breath, abdominal discomfort, nausea, vomiting, diarrhea. Objective: Vital signs: Please see below General: NAD, very thin elderly male, lying comfortably in bed NAD HEENT: NC/AT, EOMI, bitemporal wasting Lungs: b/l basilar crackles, no wheezing appreciated Heart: +S1S2, irregular, rate controlled, no murmur, gallops or rubs Abd: soft, NT, +BS Ext: no edema, contracted bilateral extremities Assessment and plan: This is an 84-year-old elderly, fragile looking gentleman who is a resident of [facility] assisted living, who presents to [facility] ER due to confusion, increased incontinence for the past 2 weeks. He had a fall 2 weeks ago and since then he has been just going down hill. Per Assisted living staff patient woke up and was unable to ambulate at all and unable to do his ADLS. he had complained of back p ain to the [place] staff. He was sent to the ED for evaluation. He was seen by his PMD 6 days ago for issues of weakness confusion and incontinence. At that time he complained of left leg pain and inability to put pressure on that leg. He had xray of the left hip and left femur done on 12/08 which showed arthritis and osteopenia. He was started on Cymbalta. The ED, he complained of right groin pain and right leg pain. ED staff tried to stand him up but he was too weak to bear weight and stand up. Admission his labs were unremarkable except for mild increase in his creatinine (1.37)and a dirty UA. In the ER, he was also disorientated and did not know where he was. He was admitted under the hospita list service for UTI and generalized weakness and confusion. #Acute HFrEF - Repeat echo shows severe systolic LVEF dysfunction 30-35%, unable to assess diastolic dysfunction - Pro BNP improving - trace lower extremity edema; bibasilar crackles - Patient has had 2 episodes of 7 beats of V. tach overnight with 9 beats of V. tach this morning; asymptomatic This may be secondary to chronic hypertension as well as CHF- patients at risk for arrhythmias Patient may need AICD placement down the line Contacts patient's proxy to address up-to-date CODE STATUS - Electrolytes within normal limits - Cardiology recommended carvedilol - Continue Lasix with strict ins and outs- 4 hour urine output about 2 L #age related physical debility - Continue PT/OT #Confusion -(?) Baseline dementia -Contact patient's proxy #Left/Right leg pain -Continue with tylenol and cymbalta -No acute fractures or dislocation on X-rays #BPH - Continue with finasteride and flomax #CAD/[place]/stents - Continue with ASA, isosorbide, statin #Chronic Afib - Irregularly irregular rhythm, rate controlled - Continue on carvedilol - Not on anticoagulation due to history of multiple intracranial hemorrhages #HTN - carvedilol DVT prophylaxis: Lovenox 30 GI prophylaxis: Omeprazole Diet: 2 g sodium Fluids 2 L restriction CODE STATUS: DNR/DNI Disposition: Pending clinical improvement. I have contacted patient's proxy ( Daughter Janette ) @ [phone] and spoke at length with her about patients condition and disposition and have established that patient would not want to be tubed and would want DNR/DNI. Also spoke with her about patient's mentation which continues to decline, more noticeable in the past 2 months. Attending Note: Patient seen and examined independently. Agree with resident's note and plan of care. Objective Physical Examination General Exam: Positive: Alert, Cooperative, No Acute Distress, Other (mumbling answers today and apperas more unsure about his answers and more confused this morning. ) Eye Exam: Positive: PERRLA, Conjunctiva & lids normal, EOMI; Negative: Sclera icteric ENT Exam: Positive: Atraumatic, Mucous membr. moist/pink, Pharynx Normal Neck Exam: Positive: Supple; Negative: JVD, thyromegaly Chest Exam: Positive: Clear to auscultation, Normal air movement Heart Exam: Positive: Rate Normal, Irregular Rhythm, Normal S1, Normal S2; Negative: Gallops, Murmurs, Rubs Telemetry: Positive: Atrial fibrillation Abdomen Exam: Positive: Normal bowel sounds, Soft; Negative: Tenderness, Hepatospenomegaly Extremity Exam: Positive: Edema (bipedal 2+ edema); Negative: Clubbing, Cyanosis Skin Exam: Positive: Nl turgor and temperature; Negative: Breakdown, Lesion Neuro Exam: Positive: Normal Tone Psych Exam: Positive: Other (oriented x 1) Assessment /Plan Plan/VTE VTE Prophylaxis Ordered?: Yes VS, I&O, 24H, Fishbone Vital Signs/I&O Vital Signs Date Time Temp Pulse Resp B/P (MAP) Pulse Ox O2 Delivery O2 Flow Rate FiO2 12/21/20 10:07 63 116/64 12/21/20 08:00 97.3 17 94 Room Air 12/20/20 15:55 I&O- Last 24 Hours up to 6 AM 12/21/20 05:59 Intake Total 2020 ml Output Total 400 ml Balance 1620 ml Laboratory Data 24H LABS Laboratory Tests 2 12/20/20 13:02: AG-Xow-Z-Type Natriuretic Peptide 94747H 12/21/20 08:47: HY-Zuj-N-Type Natriuretic Peptide 11675T, Nucleated Red Blood Cells % (auto) 0.0, Anion Gap 5L, Glomerular Filtration Rate 60.0, Calcium Level 8.6L, Whole Blood Ionized Calcium 4.6, Magnesium Level 2.6H, Total Bilirubin 1.2H, Aspartate Amino Transf (AST/SGOT) 34, Alanine Aminotransferase (ALT/SGPT) 35, Alkaline Phosphatase 114, Total Creatine Kinase 246, Creatine Kinase MB 5.5H, Creatine Kinase MB Relative Index 2.24, Troponin I 0.27H, Total Protein 7.0, Albumin 3.4, Albumin/Globulin Ratio 0.9 CBC/BMP Laboratory Tests 12/21/20 08:47 Microbiology Microbiology 12/17/20 Gram Stain - Final, Complete 12/17/20 Sputum Culture - Final, Complete Yeast Like Organism 12/13/20 Blood Culture - Final, Complete NO GROWTH AFTER 5 DAYS 12/13/20 Urine Culture - Final, Complete 12/13/20 Blood Culture - Final, Complete NO GROWTH AFTER 5 DAYS Tova Horn DO Dec 21, 2020 10:21 MOON MERRITT MD Dec 29, 2020 01:06
[2020-12-21 16:00] VITALS: BP 103/59
[2020-12-21 20:00] VITALS: BP 104/57
[2020-12-21] MEDS: ENOXAPARIN 30MG/0.3ML SYRINGE (J1650 PER 10MG) SC SCH (20:27)
[2020-12-21] MEDS: ATORVASTATIN 10 MG TAB PO SCH (20:28)
[2020-12-21] MEDS: TAMSULOSIN 0.4 MG CAP PO SCH (20:28)
[2020-12-22] VITALS: BP 97/57
[2020-12-22 04:00] VITALS: BP 98/51
[2020-12-22 05:08] LABS: BASO # 0.1 10^3/uL (0.0-0.2); BASO % 0.8 % (0.0-1.0); EOS # 0.3 10^3/uL (0.0-0.5); HEMATOCRIT 36.5 % (42.0-52.0); HEMOGLOBIN 11.7 g/dl (13.5-17.5); LYMPH # 0.7 10^3/uL (1.5-5.0); LYMPH % 10.4 % (24.0-44.0); MEAN CORPUSCULAR HEMOGLOBIN 31.5 pg (27.0-33.0); MEAN CORPUSCULAR HGB CONC 32.1 g/dl (32.0-36.5); MEAN CORPUSCULAR VOLUME 98.1 fl (80.0-96.0); MONO # 0.5 10^3/uL (0.0-0.8); MONO % 7.3 % (2.0-8.0); NEUTROPHILS # 4.9 10^3/uL (1.5-8.5); PLATELET COUNT, AUTOMATED 175 10^3/uL (150-450); RED BLOOD COUNT 3.72 10^6/uL (4.30-6.10); WHITE BLOOD COUNT 6.4 10^3/uL (4.0-10.0)
[2020-12-22 05:32] LABS: BLOOD UREA NITROGEN 26 MG/DL (7-18); CALCIUM LEVEL 8.9 MG/DL (8.8-10.2); CARBON DIOXIDE LEVEL 30 MEQ/L (21-32); CHLORIDE LEVEL 108 MEQ/L (98-107); CREATININE FOR GFR 1.19 MG/DL (0.70-1.30); GLOMERULAR FILTRATION RATE > 60.0 (>35); GLUCOSE, FASTING 104 MG/DL (70-100); POTASSIUM SERUM 3.7 MEQ/L (3.5-5.1); SODIUM LEVEL 142 MEQ/L (136-145)
[2020-12-22] MEDS: SLF 3 ML SYR IV SCH ×3 (06:33→21:00)
[2020-12-22 08:00] VITALS: BP 106/58
[2020-12-22] MEDS: NYSTATIN 500,000 U/5 ML SUSP UDC SSP SCH ×4 (09:51→20:59)
[2020-12-22] MEDS: CARVedilol 3.125 MG TAB PO SCH ×2 (09:52→21:00)
[2020-12-22] MEDS: DULoxetine 20 MG CAP (CYMBALTA) PO SCH (09:52)
[2020-12-22] MEDS: ASPIRIN 81MG ENTERIC TABLET PO SCH (09:52)
[2020-12-22] MEDS: FINASTERIDE 5 MG TAB PO SCH (09:52)
[2020-12-22] MEDS: FUROSEMIDE 40MG/4ML VIAL (J1940) IV SCH (09:52)
[2020-12-22] MEDS: ACETAMINOPHEN TAB 650MG DOSE (2X325MG) PO SCH ×3 (09:53→20:59)
[2020-12-22] MEDS: ISOSORBIDE MON. (IMDUR) 30 MG XR TAB PO SCH (09:53)
[2020-12-22] MEDS: OMEPRAZOLE 20 MG CAP PO SCH (09:55)
--- NOTE | 2020-12-22 10:51 | IPNPDOC ---
Subjective Date Seen The patient was seen on 12/22/20. Subjective Chief Complaint/HPI Subjective: The patient was seen at bedside this morning. It is AAO 1 only to person. According to the patient's proxy (Janette -daughter), patient's mentation has been slowly declining a more prominent in the past 2 months. Had episode of 9 beats of V. tach last night and 5 beats V. tach this morning reported by nurse. Patient is not symptomatic. Electrolytes are within normal limits this morning. She denies any chest breath, chest pain, abdominal discomfort, nausea, vomiting, diarrhea. He has been working with PT, OT and is tolerating well. Patient It is unknown with the patient's baseline mentation is and will need to contact patient's proxy to determine that. Overnight patient had 2 episodes of 7 beats V. tach and the nurse reported the patient had 9 beats of V. tach this morning. Patient is not symptomatic and electrolytes are within normal limits. Patient denies any chest pain, shortness breath, abdominal discomfort, nausea, vomiting, diarrhea. Objective: Vital signs: Please see below General: NAD, very thin elderly male, lying comfortably in bed NAD HEENT: NC/AT, EOMI, bitemporal wasting Lungs: Some mild crackling bibasilar lobes, no wheezing or rales appreciated Heart: +S1S2, irregular, rate controlled, no murmur, gallops or rubs Abd: soft, NT, +BS Ext: no edema, contracted bilateral lower extremities Assessment and plan: This is an 84-year-old elderly, fragile looking gentleman who is a resident of [facility] assisted living, who presents to [facility] ER due to confusion, increased incontinence for the past 2 weeks. He had a fall 2 weeks ago and since then he has been just going down hill. Per Assisted living staff patient woke up and was unable to ambulate at all and unable to do his ADLS. he had complained of back pain to the [place] staff. He was sent to the ED for evaluation. He was seen by his PMD 6 days ago for issues of weakness confusion and incontinence. At that time he complained of left leg pain and inability to put pressure on that leg. He had xray of the left hip and left femur done on 12/08 which showed arthritis and osteopenia. He was started on Cymbalta. The ED, he complained of right groin pain and right leg pain. ED staff tried to stand him up but he was too weak to bear weight and stand up. Admission his labs were unremarkable except for mild increase in his creatinine (1.37)and a dirty UA. In the ER, he was also disorientated and did not know where he was. He was admitted under the hospit alist service for UTI and generalized weakness and confusion. #Acute HFrEF - Repeat echo shows severe systolic LVEF dysfunction 30-35%, unable to assess diastolic dysfunction - Physical with no definitive signs of fluid overload - Pro BNP improving - Patient has had one episode of 9 beats of V. tach overnight and 5 beats of V. tach this morning; asymptomatic - This may be secondary to chronic hypertension as well as structural heart defects (severe right atrial outpatient) and cor pulmonale- patients at risk for arrhythmias - Discussion with family about code status; has been made DNR / DNI on 12/21/2020 - Electrolytes within normal limits - Continue with carvedilol - Continue Lasix with strict ins and outs- 4 hour urine output about 2 L #Chronic A. fib - Irregularly irregular rhythm, rate controlled - Continue on carvedilol - Not on anticoagulation due to history of multiple intracranial hemorrhages #age related physical debility - Patient has contracted bilateral lower extremities - Continue PT/OT; will likely need to be transitioned to skilled section of [facility] - Transition to [facility] today #Left/Right leg pain -Continue with tylenol and cymbalta -No acute fractures or dislocation on X-rays #BPH - Continue with finasteride and flomax #CAD/[place]/stents - Continue with ASA, isosorbide, statin #HTN - carvedilol DVT prophylaxis: Lovenox 30 GI prophylaxis: Omeprazole Diet: 2 g sodium Fluids 2 L restriction CODE STATUS: DNR/DNI Disposition: - Pending discharge to [facility] jail facility tomorrow - Will transition to [facility] status - Facility unable to arrange transport today Objective Physical Examination General Exam: Positive: Alert, Cooperative, No Acute Distress, Other (mumbling answers today and apperas more unsure about his answers and more confused this morning. ) Eye Exam: Positive: PERRLA, Conjunctiva & lids normal, EOMI; Negative: Sclera icteric ENT Exam: Positive: Atraumatic, Mucous membr. moist/pink, Pharynx Normal Neck Exam: Positive: Supple; Negative: JVD, thyromegaly Chest Exam: Positive: Clear to auscultation, Normal air movement Heart Exam: Positive: Rate Normal, Irregular Rhythm, Normal S1, Normal S2; Negative: Gallops, Murmurs, Rubs Telemetry: Positive: Atrial fibrillation Abdomen Exam: Positive: Normal bowel sounds, Soft; Negative: Tenderness, Hepatospenomegaly Extremity Exam: Positive: Edema (bipedal 2+ edema); Negative: Clubbing, Cyanosis Skin Exam: Positive: Nl turgor and temperature; Negative: Breakdown, Lesion Neuro Exam: Positive: Normal Tone Psych Exam: Positive: Other (oriented x 1) Assessment /Plan Plan/VTE VTE Prophylaxis Ordered?: Yes VS, I&O, 24H, Fishbone Vital Signs/I&O Vital Signs Date Time Temp Pulse Resp B/P (MAP) Pulse Ox O2 Delivery O2 Flow Rate FiO2 12/22/20 09:53 106/58 12/22/20 09:52 61 12/22/20 08:00 98.5 17 96 Room Air 12/20/20 15:55 I&O- Last 24 Hours up to 6 AM 12/22/20 06:00 Intake Total 1030 ml Output Total 725 ml Balance 305 ml Laboratory Data 24H LABS Laboratory Tests 2 12/22/20 04:54: Immature Granulocyte % (Auto) 0.5, Neutrophils (%) (Auto) 76.0H, Lymphocytes (%) (Auto) 10.4L, Monocytes (%) (Auto) 7.3, Eosinophils (%) (Auto) 5.0H, Basophils (%) (Auto) 0.8, Neutrophils # (Auto) 4.9, Lymphocytes # (Auto) 0.7L, Monocytes # (Auto) 0.5, Eosinophils # (Auto) 0.3, Basophils # (Auto) 0.1, Nucleated Red Blood Cells % (auto) 0.0, Anion Gap 4L, Glomerular Filtration Rate > 60.0, Calcium Level 8.9 12/22/20 10:27: CBC/BMP Laboratory Tests 12/22/20 04:54 Microbiology Microbiology 12/17/20 Gram Stain - Final, Complete 12/17/20 Sputum Culture - Final, Complete Yeast Like Organism 12/13/20 Blood Culture - Final, Complete NO GROWTH AFTER 5 DAYS 12/13/20 Urine Culture - Final, Complete 12/13/20 Blood Culture - Final, Complete NO GROWTH AFTER 5 DAYS GME ATTESTATION GME ATTESTATION My faculty preceptor for this patient encounter was physically present during the encounter and was fully available. All aspects of the patient interview, examination, medical decision making process, and medical care plan development were reviewed and approved by the faculty preceptor. The faculty preceptor is aware and concurs with the plan as stated in the body of this note and will attest to such by his/her cosignature. ATTENDING NOTE I, Katlyn Toney, have independently examined this patient and performed my own physical exam, as well as reviewed the documentation and edited where necessary. I have discussed in detail with the resident / student the findings and plan of treatment as documented by the resident / student and edited their note. I agree with their findings and treatment plan and have edited their documentation. I will continue to follow the patient during this hospital stay. Tova Horn DO Dec 22, 2020 10:44 KATLYN TONEY MD Dec 22, 2020 10:57
[2020-12-22] MEDS: LACTULOSE 20 GM/30 ML SYRUP UD PO SCH ×3 (11:24→23:47)
[2020-12-22 12:00] VITALS: BP 94/58
[2020-12-22] MEDS: FLEET ENEMA PR SCH (15:00)
[2020-12-22] MEDS: FUROSEMIDE 40 MG TAB PO SCH (18:09)
[2020-12-22] MEDS: ENOXAPARIN 30MG/0.3ML SYRINGE (J1650 PER 10MG) SC SCH (20:59)
[2020-12-22] MEDS: TAMSULOSIN 0.4 MG CAP PO SCH (20:59)
[2020-12-22] MEDS: ATORVASTATIN 10 MG TAB PO SCH (21:00)
[2020-12-23] MEDS: SLF 3 ML SYR IV SCH ×3 (05:39→20:44)
[2020-12-23] MEDS: LACTULOSE 20 GM/30 ML SYRUP UD PO SCH ×3 (05:39→17:00)
[2020-12-23 06:00] VITALS: BP 120/65
[2020-12-23 06:31] LABS: BASO # 0.1 10^3/uL (0.0-0.2); BASO % 0.7 % (0.0-1.0); EOS # 0.3 10^3/uL (0.0-0.5); EOS % 3.7 % (0.0-3.0); HEMATOCRIT 39.4 % (42.0-52.0); HEMOGLOBIN 12.4 g/dl (13.5-17.5); LYMPH # 0.7 10^3/uL (1.5-5.0); LYMPH % 8.6 % (24.0-44.0); MEAN CORPUSCULAR HGB CONC 31.5 g/dl (32.0-36.5); MEAN CORPUSCULAR VOLUME 98.5 fl (80.0-96.0); MONO # 0.4 10^3/uL (0.0-0.8); MONO % 5.7 % (2.0-8.0); NEUTROPHILS # 6.1 10^3/uL (1.5-8.5); NEUTROPHILS % 80.8 % (36.0-66.0); PLATELET COUNT, AUTOMATED 194 10^3/uL (150-450); WHITE BLOOD COUNT 7.6 10^3/uL (4.0-10.0)
[2020-12-23 06:58] LABS: CALCIUM LEVEL 8.7 MG/DL (8.8-10.2); CREATININE FOR GFR 1.23 MG/DL (0.70-1.30); GLOMERULAR FILTRATION RATE 59.4 (>35); POTASSIUM SERUM 3.5 MEQ/L (3.5-5.1)
[2020-12-23] MEDS ORDERED: FLEET OIL RETENTION ENEMA PR ONE (08:00)
[2020-12-23] MEDS: ACETAMINOPHEN TAB 650MG DOSE (2X325MG) PO SCH ×3 (08:58→20:43)
[2020-12-23] MEDS: ASPIRIN 81MG ENTERIC TABLET PO SCH (08:58)
[2020-12-23] MEDS: FINASTERIDE 5 MG TAB PO SCH (08:58)
[2020-12-23] MEDS: DULoxetine 20 MG CAP (CYMBALTA) PO SCH (08:58)
[2020-12-23] MEDS: OMEPRAZOLE 20 MG CAP PO SCH (08:58)
[2020-12-23] MEDS: NYSTATIN 500,000 U/5 ML SUSP UDC SSP SCH ×4 (08:58→20:44)
[2020-12-23] MEDS: FUROSEMIDE 40 MG TAB PO SCH ×2 (08:59→16:58)
[2020-12-23] MEDS: ISOSORBIDE MON. (IMDUR) 30 MG XR TAB PO SCH (09:00)
[2020-12-23] MEDS: FLEET ENEMA PR SCH (09:00)
[2020-12-23] MEDS: CARVedilol 3.125 MG TAB PO SCH ×2 (09:00→20:44)
--- NOTE | 2020-12-23 09:45 | DS.PDOC ---
Discharge Summary General Date of Admission Dec 13, 2020 at 14:36 Date of Discharge 12/24/20 - Patient remained in the hospital for an additional 3 days after [facility] had reported that patient did not have sufficient bowel movements Attending Physician: KATLYN TONEY MD Specialist/Consultants [facility] (Dr. Guy) Discharge Summary ADDENDUM: Patient has been medically optimized since 2 days ago. Patient was ready for discharge back to [facility] yesterday. However, [facility] refused to take patient back due to "insufficient bowel movements." Patient has been discharged back to [facility] today on 12/24/20 PROCEDURES PERFORMED DURING STAY: none ADMITTING DIAGNOSES: generalized weakness UTI DISCHARGE DIAGNOSES: Acute on Chronic HFrEFexacerbation UTI generalized weakness/debility COMPLICATIONS/CHIEF COMPLAINT: unable to ambulate Chronic A. fib/flutter, not on before meals due to past intracranial hemorrhages Multiple intracranial hemorrhages including right parietal lobe, subarachnoid hemorrhage, Right frontal intraparenchymal hemorrhage 2011. Status post right frontal craniotomy CAD status post stents with H/o AMI Systolic and diastolic CHF. Echo 07/10/11 LVEF 50-55% Valvular heart disease status post MVR by Bioprosthetic valve/ TR annuloplasty CKD stage3 Hypertension Hyperlipidemia Glaucoma BPH GERD Physical deconditioning. 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 He has been confused and with increased incontinence. He had a fall 2 weeks ago and since then he has been just going down hill. This morning as per Assisted living staff patient woke up and was unable to ambulate at all and unable to do his ADLS. he had complained of back pain to the [place] staff. He was sent to the ED for evaluation. He was seen by his PMD 6 days ago for issues of weakness confusion and incontinence. At that time he complained of left leg pain and inability to put pressure on that leg. He had xray of the left hip and left femur done on 12/08 which showed arthritis and osteopenia. He was started on Cymbalta. Had a visit with PMD in October also as he had complained of feeling depressed to the PT and had lost 9 lbs. He was felt to have reactive depression due to the COVID restrictions and was started on Sertraline. Which was stopped on 12/08/20 as he was having hallucinations. Today to the ED provider he complained of right groin pain and right leg pain. ED staff tried to stand him up but he was too weak to bear weight and stand up. Labs were unremarkable except for mild increase in creatinine to 1.37 and he had a dirty UA. On my exam he complained of LEFT leg pain. He did not know the month or year or where he was. He thought he was in [facility]. I reminded him that he was in the hospital and asked why he was here. He said that he was too "feeble" to stand up. I asked if he fell . He denied falling recently. When i reminded him that he had fallen last week he explained that sometimes he gets down on his knees if he drops something and cannot get up any more then the staff finds him down on his knees and think that he has fallen. His left leg pain in in the hip and thigh and knee sharp aching in nature he could not rate it. He aslo says that sometimes he has burning in his urine and h has difficulty in pushing the urine out. He was admitted for UTI, generalized weakness and confusion. In the ER, CT showed right frontal craniotomy/encephalomalacia, Scrotal US showed bilateral hydroceles and left inguinal hernia extending into the scrotum. CXR: vascular congestion. Right hip and pelvis xray : No acute fracture or dislocation. US of the right leg: No DVT. HOSPITAL COURSE: This is an 84-year-old elderly, fragile looking gentleman who is a resident of [facility] assisted living, who presents to [facility] ER due to confusion, increased incontinence for the past 2 weeks. He had a fall 2 weeks ago and since then he has been just going down hill. Per Assisted living staff patient woke up and was unable to ambulate at all and unable to do his ADLS. he had complained of back pain to the [place] staff. He was sent to the ED for evaluation. He was seen by his PMD 6 days ago for issues of weakness confusion and incontinence. At that time he complained of left leg pain and inability to put pressure on that leg. He had xray of the left hip and left femur done on 12/08 which showed arthritis and osteopenia. He was started on Cymbalta. The ED, he complained of right groin pain and right leg pain. ED staff tried to stand him up but he was too weak to bear weight and stand up. Admission his labs were unremarkable except for mild increase in his creatinine (1.37)and a dirty UA. In the ER, he was also disorientated and did not know where he was. He was admitted under the hospitalist service for UTI and generalized weakness and confusion. During hospitalization, patient experienced many episodes of nonsustained V. tach which is likely secondary to his significant comorbidities and structural heart defect (severe right atrial dilation) and moderate pulmonary hypertension per recent echo. I have spoken at length with patient's daughter, Janette, who is also his healthcare proxy about his hospital course. , According to the daughter, the patient has been slowly declining both physically and mentally, but these changes are more significant in the past 2 months. His CODE STATUS changed to DNR/DNI as confirmed by the patient's daughter. #Acute HFrEF - Repeat echo shows severe systolic LVEF dysfunction 30-35%, unable to assess diastolic dysfunction - Physical with no definitive signs of fluid overload - Pro BNP improving - Patient has had non sustained beats of vtach during hospitalization; all asymptomatic - This may be secondary to chronic hypertension as well as structural heart defects (severe right atrial outpatient) and cor pulmonale- patients at risk for arrhythmias - Discussion with family about code status; has been made DNR / DNI on 12/21/2020 - Electrolytes within normal limits - Continue with carvedilol - Continue Lasix with strict ins and outs- 4 hour urine output about 2 L #Chronic A. fib - Irregularly irregular rhythm, rate controlled - Continue on carvedilol - Not on anticoagulation due to history of multiple intracranial hemorrhages #Age related physical debility - Patient has contracted bilateral lower extremities - Continue PT/OT at [facility] facility once discharged #Left/Right leg pain -Continue with tylenol and cymbalta -No acute fractures or dislocation on X-rays #BPH - Continue with finasteride and flomax #CAD/ME/stents - Continue with ASA, isosorbide, statin #HTN - Pt had non sustained PVCs during hospitalization - c/w Carvedilol for PVCs per cardiology - f/u with cardiology outpt DVT prophylaxis: Lovenox 30 GI prophylaxis: Omeprazole CODE STATUS: DNR/DNI DISCHARGE MEDICATIONS: Please see below. ALLERGIES: Please see below. PHYSICAL EXAMINATION ON DISCHARGE: VITAL SIGNS: Please see below. General: NAD, very thin elderly male, lying comfortably in bed NAD HEENT: NC/AT, EOMI, bitemporal wasting Lungs: no wheezing, rales, rhonci appreciated Heart: +S1S2, irregular, rate controlled, no murmur, gallops or rubs Abd: soft, NT, +BS Ext: no edema, contracted bilateral lower extremities LABORATORY DATA: Please see below. IMAGING: Vascular ultrasound 12/13 No evidence of deep venous thrombosis of the right lower extremity femoral popliteal venous system. Scrotum ultrasound 12/13 No testicular mass or torsion. Left inguinal hernia extends into the left scrotal sac, containing bowel loops. Moderate bilateral hydroceles. Hip, pelvis x-ray, 12/13 Arthritic changes with no evidence of acute fracture or dislocation. Head CT 12/13 Prior right frontal craniotomy with underlying encephalomalacia. Chronic changes are stable. No acute intracranial hemorrhage, midline shift or mass effect. Chest x-ray 12/13 Stable vascular congestion and increased interstitial markings compared to prior study. Mild cardiomegaly. No new infiltrate Abdominal pelvis CT 12/13 Multiple gallstones in the gallbladder with no gallbladder distention, gallbladder wall thickening or edema. No hydroureteronephrosis. Sigmoid diverticulosis without acute diverticulitis. There is a large left inguinal hernia containing sigmoid colon, extending into the left hemiscrotum, appearing similar to the prior CT exam. Stable mild aneurysmal dilatation of the distal abdominal aorta 3.4 cm. Esophagus x-ray / Both penetration and aspiration are visualized during this exam, a detailed report will be provided by speech pathology. A 3.2 minutes of fluoroscopy time was utilized for this procedure. Some fluoroscopic images are performed with last image hold technology. These images require no additional radiation Chest x-ray 3/4 Findings most compatible with CHF/pulmonary edema. ACTIVITY: As tolerated. Fall precautions DIET: As tolerated DISCHARGE INSTRUCTIONS: Follow up with parimutuel clerk within 3-5 days. Possible discharge Follow-up with primary care doctor within 7 days of hospital discharge Return to the ER if you experience any problems DISCHARGE CONDITION: Fair TIME SPENT ON DISCHARGE: 45 minutes. Vital Signs/I&Os Vital Signs Date Time Temp Pulse Resp B/P (MAP) Pulse Ox O2 Delivery O2 Flow Rate FiO2 12/23/20 06:00 97.5 84 18 120/65 (83) 90 Room Air 12/20/20 15:55 I&O- Last 24 Hours up to 6 AM 12/23/20 06:00 Intake Total 590 ml Output Total 300 ml Balance 290 ml Laboratory Data Labs 24H Laboratory Tests 2 12/22/20 10:27: Coronavirus (COVID-19)(PCR) NEGATIVE 12/23/20 06:07: Immature Granulocyte % (Auto) 0.5, Neutrophils (%) (Auto) 80.8H, Lymphocytes (%) (Auto) 8.6L, Monocytes (%) (Auto) 5.7, Eosinophils (%) (Auto) 3.7H, Basophils (%) (Auto) 0.7, Neutrophils # (Auto) 6.1, Lymphocytes # (Auto) 0.7L, Monocytes # (Auto) 0.4, Eosinophils # (Auto) 0.3, Basophils # (Auto) 0.1, Nucleated Red Blood Cells % (auto) 0.0, Anion Gap 8, Glomerular Filtration Rate 59.4, Calcium Level 8.7L CBC/BMP Laboratory Tests 12/23/20 06:07 Microbiology Microbiology 12/17/20 Gram Stain - Final, Complete 12/17/20 Sputum Culture - Final, Complete Yeast Like Organism 12/13/20 Blood Culture - Final, Complete NO GROWTH AFTER 5 DAYS 12/13/20 Urine Culture - Final, Complete 12/13/20 Blood Culture - Final, Complete NO GROWTH AFTER 5 DAYS Discharge Medications Scheduled Acetaminophen (Acetaminophen) 325 Mg Tablet, 650 MG PO TID, (Reported) 600,1300,2000 Aspirin (Aspirin EC) 81 Mg Tablet.dr, 81 MG PO DAILY, (Reported) Atorvastatin Calcium (Atorvastatin Calcium) 40 Mg Tablet, 40 MG PO QHS, (Reported) Carvedilol (Carvedilol) 3.125 Mg Tablet, 3.125 MG PO BID Colesevelam Hydrochloride (Welchol) 625 Mg Tablet, 625 MG PO BID, (Reported) Duloxetine Hcl (Duloxetine HCl) 20 Mg Capsule.dr, 20 MG PO DAILY, (Reported) Finasteride (Finasteride) 5 Mg Tab, 5 MG PO DAILY, (Reported) Furosemide (Furosemide) 40 Mg Tab, 40 MG PO BID, (Reported) 900 and 1300 Isosorbide Mononitrate (Isosorbide Mononitrate ER) 30 Mg Tab, 30 MG PO DAILY, (Reported) Nystatin (Nystatin Powder) 15 Gm Powder, 1 APPLIC TOP BID, (Reported) APPLY TO ABDOMINAL FOLDS AND GROIN AREA Omeprazole (Omeprazole) 40 Mg Capsule.dr, 40 MG PO DAILY, (Reported) Spironolactone (Spironolactone) 25 Mg Tab, 25 MG PO DAILY, (Reported) Tamsulosin Hcl (Tamsulosin HCl) 0.4 Mg Capsule, 0.4 MG PO QHS, (Reported) Allergies Coded Allergies: lovastatin (Verified Allergy, Intermediate, hives, 05/01/19) GME ATTESTATION GME ATTESTATION My faculty preceptor for this patient encounter was physically present during the encounter and was fully available. All aspects of the patient interview, examination, medical decision making process, and medical care plan development were reviewed and approved by the faculty preceptor. The faculty preceptor is aware and concurs with the plan as stated in the body of this note and will at test to such by his/her cosignature. ATTENDING NOTE I, Katlyn Toney, have independently examined this patient and performed my own physical exam, as well as reviewed the documentation and edited where necessary. I have discussed in detail with the resident / student the findings and plan of treatment as documented by the resident / student and edited their note. I agree with their findings and treatment plan and have edited their documentation. I will continue to follow the patient during this hospital stay. Time spent on discharge 35 minutes Tova Horn DO Dec 23, 2020 08:00 KATLYN TONEY MD Dec 23, 2020 10:34
[2020-12-23] MEDS ORDERED: CARV3.12 PO (09:49)
[2020-12-23] MEDS ORDERED: ATOR1TAB19 PO (09:49)
[2020-12-23] MEDS: DOCUSATE SODIUM 100MG CAPSULE PO PRN (12:18)
[2020-12-23] MEDS: MOM 30ML SUSPENSION UDC PO PRN (12:18)
[2020-12-23] MEDS: SENNA 8.6 MG TAB (SENOKOT) PO PRN (12:18)
[2020-12-23] MEDS: SENNA 8.6 MG TAB (SENOKOT) PO SCH ×2 (12:30→20:42)
[2020-12-23] MEDS: MOM 30ML SUSPENSION UDC PO SCH (12:30)
[2020-12-23] MEDS: DOCUSATE SODIUM 100MG CAPSULE PO SCH ×2 (12:35→20:42)
[2020-12-23] MEDS: TAMSULOSIN 0.4 MG CAP PO SCH (20:42)
[2020-12-23] MEDS: ATORVASTATIN 10 MG TAB PO SCH (20:42)
[2020-12-23] MEDS: ENOXAPARIN 30MG/0.3ML SYRINGE (J1650 PER 10MG) SC SCH (20:44)
[2020-12-24] MEDS: LACTULOSE 20 GM/30 ML SYRUP UD PO SCH ×2 (00:09→05:07)
[2020-12-24] MEDS: SLF 3 ML SYR IV SCH (05:07)
[2020-12-24 06:00] VITALS: BP 130/89
[2020-12-24 06:50] LABS: BASO # 0.1 10^3/uL (0.0-0.2); BASO % 0.8 % (0.0-1.0); EOS # 0.2 10^3/uL (0.0-0.5); EOS % 2.8 % (0.0-3.0); HEMOGLOBIN 13.2 g/dl (13.5-17.5); LYMPH # 0.7 10^3/uL (1.5-5.0); LYMPH % 9.2 % (24.0-44.0); MEAN CORPUSCULAR HEMOGLOBIN 31.7 pg (27.0-33.0); MEAN CORPUSCULAR HGB CONC 31.4 g/dl (32.0-36.5); MONO # 0.5 10^3/uL (0.0-0.8); MONO % 6.7 % (2.0-8.0); NEUTROPHILS # 6.1 10^3/uL (1.5-8.5); NEUTROPHILS % 80.2 % (36.0-66.0); PLATELET COUNT, AUTOMATED 215 10^3/uL (150-450); RED BLOOD COUNT 4.16 10^6/uL (4.30-6.10); WHITE BLOOD COUNT 7.6 10^3/uL (4.0-10.0)
[2020-12-24 07:09] LABS: CREATININE FOR GFR 1.29 MG/DL (0.70-1.30); GLOMERULAR FILTRATION RATE 56.1 (>35); POTASSIUM SERUM 4.3 MEQ/L (3.5-5.1)
[2020-12-24 09:00] VITALS: BP 106/54
[2020-12-24] MEDS: CARVedilol 3.125 MG TAB PO SCH (09:00)
[2020-12-24] MEDS: FUROSEMIDE 40 MG TAB PO SCH ×2 (09:00→09:50)
[2020-12-24] MEDS: ISOSORBIDE MON. (IMDUR) 30 MG XR TAB PO SCH (09:00)
[2020-12-24] MEDS ORDERED: MOM 30ML SUSPENSION UDC PO SCH (09:00)
[2020-12-24] MEDS: FLEET ENEMA PR SCH (09:49)
[2020-12-24] MEDS: ACETAMINOPHEN TAB 650MG DOSE (2X325MG) PO SCH (09:49)
[2020-12-24] MEDS: MOM 30ML SUSPENSION UDC PO SCH (09:49)
[2020-12-24] MEDS: NYSTATIN 500,000 U/5 ML SUSP UDC SSP SCH (09:49)
[2020-12-24] MEDS: DOCUSATE SODIUM 100MG CAPSULE PO SCH (09:50)
[2020-12-24] MEDS: OMEPRAZOLE 20 MG CAP PO SCH (09:50)
[2020-12-24] MEDS: DULoxetine 20 MG CAP (CYMBALTA) PO SCH (09:50)
[2020-12-24] MEDS: ASPIRIN 81MG ENTERIC TABLET PO SCH (09:50)
[2020-12-24] MEDS: SENNA 8.6 MG TAB (SENOKOT) PO SCH (09:50)
[2020-12-24] MEDS: FINASTERIDE 5 MG TAB PO SCH (09:50)
== END 2020-12-24 10:41 | DRG 884 ==
LOC: EDBD 11:54 → M ED 11:54 → M ED INP 14:36 → M MSPAV 17:07 → M PCU 12-17 14:40 → M MSPAV 12-22 15:15
PROVIDERS: ADMIT Internal Medicine Nephrology; ATTEND Internal Medicine
DX: R54 Age-related physical debility (principal); I50.23 Acute on chronic systolic (congestive) heart failure; I48.20 Chronic atrial fibrillation, unspecified; I13.0 Hypertensive heart and chronic kidney disease with heart failure and stage 1 through stage 4 chronic kidney disease, or unspecified chronic kidney disease; E87.2 Acidosis; I47.2 Ventricular tachycardia; I25.10 Atherosclerotic heart disease of native coronary artery without angina pectoris; I25.2 Old myocardial infarction; N18.30 Chronic kidney disease, stage 3 unspecified; Z66 Do not resuscitate; E78.5 Hyperlipidemia, unspecified; H40.9 Unspecified glaucoma; N40.1 Benign prostatic hyperplasia with lower urinary tract symptoms; R32 Unspecified urinary incontinence; K21.9 Gastro-esophageal reflux disease without esophagitis; G25.81 Restless legs syndrome; K57.30 Diverticulosis of large intestine without perforation or abscess without bleeding; R13.10 Dysphagia, unspecified; I71.4 Abdominal aortic aneurysm, without rupture; R29.6 Repeated falls; K40.90 Unilateral inguinal hernia, without obstruction or gangrene, not specified as recurrent; Z95.5 Presence of coronary angioplasty implant and graft; Z95.3 Presence of xenogenic heart valve; Z87.891 Personal history of nicotine dependence; Z79.82 Long term (current) use of aspirin; Z79.899 Other long term (current) drug therapy; Z88.8 Allergy status to other drugs, medicaments and biological substances

== ENCOUNTER 2021-01-07 15:03 | Inpatient (IN) | payer MEDICARE, MEDICAID ==
[~2021-01-07] VITALS: Ht 175.3 cm; Wt 62.2 kg
[~2021-01-07 15:03] MED LIST changes: +ASPI81TA26 PO; +ATOR1TAB19 PO; +CARV3.12 PO; +COLE625TAB PO; +DULO1CAP4 PO; +NYST1POW9 TOP; +OMEP-221 PO
--- NOTE | 2021-01-07 16:09 | REP ---
INDICATION: Syncope. COMPARISON: Comparison CT study December 13, 2020 and December 25, 2019.. TECHNIQUE: Helical scanning is acquired. 5 mm axial images were reformatted. Coronal MPR images were generated. The patient was unable to remain still or lay flat during the examination. Accordingly, there is motion artifact and some distortion. FINDINGS: A frontal craniotomy site is visible on lateral superintendent construction view and on axial CT images in the right frontal bone. There is motion artifact and some distortion due to patient's inability to remain motionless. Large areas of right frontal and right parietal encephalomalacia are again seen with some diffuse atrophy essentially unchanged from the December 2019 study. There is no evidence of intracranial hemorrhage. Motion artifact reduces sensitivity for small focal abnormalities. Small vessel changes are noted. IMPRESSION: Image quality is substantially inhibited by motion artifact and resulting distortion. No evidence of intracranial hemorrhage. No gross change in the previous findings of areas of encephalomalacia on the right and right frontal craniotomy.. <Electronically signed by Rickey Wilkes > 01/07/21 [id number]
[2021-01-07 16:27] LABS: BASO % 0.6 % (0.0-1.0); EOS # 0.2 10^3/uL (0.0-0.5); EOS % 2.5 % (0.0-3.0); HEMATOCRIT 37.9 % (42.0-52.0); HEMOGLOBIN 12.2 g/dl (13.5-17.5); LYMPH # 0.6 10^3/uL (1.5-5.0); LYMPH % 8.5 % (24.0-44.0); MEAN CORPUSCULAR HEMOGLOBIN 31.3 pg (27.0-33.0); MEAN CORPUSCULAR HGB CONC 32.2 g/dl (32.0-36.5); MEAN CORPUSCULAR VOLUME 97.2 fl (80.0-96.0); MONO # 0.7 10^3/uL (0.0-0.8); MONO % 9.2 % (2.0-8.0); NEUTROPHILS # 5.7 10^3/uL (1.5-8.5); NEUTROPHILS % 78.6 % (36.0-66.0); PLATELET COUNT, AUTOMATED 182 10^3/uL (150-450); WHITE BLOOD COUNT 7.2 10^3/uL (4.0-10.0)
[2021-01-07 17:00] LABS: BLOOD UREA NITROGEN 41 MG/DL (7-18); CALCIUM LEVEL 8.8 MG/DL (8.8-10.2); CARBON DIOXIDE LEVEL 26 MEQ/L (21-32); CHLORIDE LEVEL 106 MEQ/L (98-107); CK-MB VALUE MASS 3.2 NG/ML (<3.6); CPK CREATINE PHOSPHOKINASE 88 U/L (39-308); CREATININE FOR GFR 1.01 MG/DL (0.70-1.30); GLOMERULAR FILTRATION RATE > 60.0 (>35); GLUCOSE, FASTING 98 MG/DL (70-100); MB/CK RELATIVE INDEX 3.64 (< OR =4); POTASSIUM SERUM 4.7 MEQ/L (3.5-5.1); SODIUM LEVEL 137 MEQ/L (136-145); TROPONIN I 0.25 NG/ML (< 0.10)
[2021-01-07] MEDS ORDERED: ACETAMINOPHEN *IV* 1,000 MG in IV 1 EA IV ONE (19:35)
[2021-01-07] MEDS ORDERED: NS 500 ML IV ONE (19:35)
[2021-01-07 20:04] LABS: CK-MB VALUE MASS 3.4 NG/ML (<3.6); MB/CK RELATIVE INDEX 3.91 (< OR =4); TROPONIN I 0.26 NG/ML (< 0.10)
[2021-01-07 20:13] LABS: RSV AMPLIFICATION NEGATIVE (NEGATIVE)
[2021-01-07] MEDS ORDERED: BISA10SU20 PR (20:55)
[2021-01-07] MEDS ORDERED: FLEEENE12 PR (20:55)
[2021-01-07] MEDS ORDERED: ACET-907 PO (20:55)
[2021-01-07] MEDS ORDERED: JUVEPOW3 PO (20:55)
[2021-01-07] MEDS ORDERED: BACL10TA2 PO (20:55)
[2021-01-07] MEDS ORDERED: CARV3.12 PO (20:55)
[2021-01-07] MEDS ORDERED: MILKSUS3 PO (20:55)
[2021-01-07] MEDS ORDERED: ENSU1LIQ36 PO (20:55)
--- NOTE | 2021-01-07 20:56 | REPVR ---
PROCEDURE INFORMATION: Exam: XR Chest Exam date and time: 01/07/2021 7:12 PM Age: 85 years old Clinical indication: Other: Syncope TECHNIQUE: Imaging protocol: XR of the chest Views: 1 view. COMPARISON: CR Chest, 2 view PA, Lat 12/17/2020 10:22 AM FINDINGS: Lungs: Airspace disease has significantly improved in the interval. Pleural spaces: Left costophrenic angle is excluded from the field of view. No large pleural effusion. No definite visible pneumothorax. Heart/Mediastinum: Cardiomegaly. Prosthetic cardiac valve. Bones/joints: Previous median sternotomy. Osteopenia. There are degenerative changes involving the spine. IMPRESSION: Interval significant improvement in previously demonstrated airspace disease. Electronically signed by: Randy Arriaga On 01/07/2021 20:56:08 PM
[2021-01-07] MEDS ORDERED: MOM 30ML SUSPENSION UDC PO PRN (22:25)
[2021-01-07] MEDS ORDERED: MAALOX 30 ML SUSP *UDC PO PRN (22:25)
--- NOTE | 2021-01-07 22:27 | HPEPDOC ---
[facility] Medical History & Physical Date of Admission Jan 07, 2021 Date of Service: Jan 07, 2021 Primary Care Physician: Priscila Hernandez Attending Physician: EDEL APPIAH MD History and Physical TIME OF SERVICE: 1138PM CHIEF COMPLAINT: AMS HISTORY OF PRESENT ILLNESS: The patient was lethargic and unable to provide a history; info was obtained via d/w the ER staff and chart review. This 85 yr old [facility] resident was sent by staff for evaluation of AMS. Per ER intake notes the pt was unresponsive w/o a pulse, but woke up after receiving sternal rub. Despite the patients DNR status his family wanted him sent to the hospital for evaluation. Per the initial work-up was remarkable for an elevated Troponin but the patients family declined transfer to a PCI capable facility. REVIEW OF SYSTEMS: unable to assess bc pt has AMS PAST MEDICAL/ SURGICAL HISTORY: Dementia Longstanding persistent Atrial Fib/Flutter s/p MAZE procedure (not on AC bc of ICH) Right parietal lobe and subarachnoid 2000, right frontal intrparenchymal hemorrhage 2011 s/p right craniotomy / residual frontal and parietal encephalomalacia CAD/CABG HFrEF/HFpEF CKD3 DLP HTN Peripheral Neuropathy RLS Essential tremors Diverticulosis AAA Debility / deconditioning BPH Osteopenia Bioprosthetic mitral valve Tricuspid annuloplasty Left heel wound Bialteral lens implantation Hx of aspiration PNA Hx of SIADH SOCIAL HISTORY: former smoker FAMILY HISTORY: Brother circulation problems / Brother during surgery ALLERGIES: Please see below. HOME MEDICATIONS: Please see below. PHYSICAL EXAMINATION: Vital Signs Date Time Temp Pulse Resp B/P (MAP) Pulse Ox O2 Delivery O2 Flow Rate FiO2 01/07/21 15:08 96.5 71 16 112/70 100 Room Air GENERAL APPEARANCE: cachectic / asleep but intermittently arousable HEENT: temporal wasting CARDIOVASCULAR: HR regularly irregular /NMRG / no LE edema LUNGS: CTAB on RA ABDOMEN: flat & firm / he his holding his stomach / he guards and grimaces when I palpate the abdomen MUSCULOSKELETAL: slim extremities INTEGUMENT: not flushed or jaundice NEUROLOGICAL: unable to assess PSYCHIATRIC: unable to assess bc pt has AMS LABORATORY DATA: 01/07/21 16:02 01/07/21 15:47: POC Glucose (Misc Panel) 100, POC Sodium (Misc Panel) 137, POC Potassium (Misc Panel) 4.5, POC Chloride (Misc Panel) 103, POC Total CO2 (Misc Panel) 24.0, POC Blood Urea Nitrogen (Misc Panel 38H, POC Ionized Calcium (Misc Panel) 4.6, POC Creatinine (Misc Panel) 1.0, POC Hematocrit (Misc Panel) 38.0 01/07/21 16:02: Immature Granulocyte % (Auto) 0.6, Neutrophils (%) (Auto) 78.6H, Lymphocytes (%) (Auto) 8.5L, Monocytes (%) (Auto) 9.2H, Eosinophils (%) (Auto) 2.5, Basophils (%) (Auto) 0.6, Neutrophils # (Auto) 5.7, Lymphocytes # (Auto) 0.6L, Monocytes # (Auto) 0.7, Eosinophils # (Auto) 0.2, Basophils # (Auto) 0.0, Nucleated Red Blood Cells % (auto) 0.0, Anion Gap 5L, Glomerular Filtration Rate > 60.0, Calcium Level 8.8, Total Creatine Kinase 88, Creatine Kinase MB 3.2, Creatine Kinase MB Relative Index 3.64, Troponin I 0.25H, Thyroid Stimulating Hormone ( TSH) 2.760 01/07/21 19:16: Total Creatine Kinase 87, Creatine Kinase MB 3.4, Creatine Kinase MB Relative Index 3.91, Troponin I 0.26H, IMAGING: CT head IMPRESSION: Image quality is substantially inhibited by motion artifact and resulting distortion. No evidence of intracranial hemorrhage. No gross change in the previous findings of areas of encephalomalacia on the right and right frontal craniotomy. Chest xray IMPRESSION: Interval significant improvement in previously demonstrated airspace disease. MICROBIOLOGY: Coronavirus (COVID-19)(PCR) NEGATIVE, Influenza Type A (RT-PCR) NEGATIVE, Influenza Type B (RT-PCR) NEGATIVE, Respiratory Syncytial Virus (PCR) NEGATIVE ASSESSMENT: is an 85 yr old w a hx of dementia, Afib/flutter, ICH, CAD/CABG, HFrEF/HFpEF, CKD3, DLP, HTN, RLS, neuropathy, essential tremors, and debility who was sent from his NH for evaluation of AMS when compared to his baseline; he will be admitted for evaluation of the latter. PLAN: 1 Encephalpathy The patient has underlying dementia but is not at his baseline per NH staff Cause TBD Plan: admit to PCU / neurochecks / f/u ammonia, prolactin, B1 and B12 / hold baclofen & duloxetine 2 Abnormal chest xray Doubt he has PNA bc he is not coughing, and doesnt have an elevated WBC # or T 3 Hypotension He has a hx of HTN but is on multiple meds, his SBP has been as low as the 90s but this has been also documented during previous visits. He doesnt have SIRS Plan: IVF / hold Lasix, isosorbide and spironolactone 4 N Anemia Plan: trend Hg 5 Chronically elevated Troponin Cause unclear EKG showed 1st degree AV block Plan: f/u 1 more top 6 CAD/CABG / DLP Plan: Carvedilol Aspirin & Atorvastatin 7 HFrEF/HFpEF Plan: c/w Carvedilol / hold Lasix & Spironolactone 8 CKD3 Plan: f/u BMP 9 Left heel wound Plan: heel suspenders 10 Hx of aspiration PNA Plan: aspiration precautions Dispo: home after at least 2 midnights stay Late entry # Constipation CT abd/pelvis showed constipation which is a common cause of delirium in the elderly Plan: rectal and PO stool softerners / if his mental status doesnt improve after he is disimpacted the day time team may consider MRI/MRA of the brain after d/w his family Home Medications Scheduled Acetaminophen (Acetaminophen) 325 Mg Tablet, 650 MG PO TID Arginine/Glutamine/Calcium Bmb (Tim Packet) 1 Each Powd.pack, 1 POW PO BID TAKES AT 0800 AND 1200 Aspirin (Aspirin EC) 81 Mg Tablet.dr, 81 MG PO DAILY Atorvastatin Calcium (Atorvastatin Calcium) 40 Mg Tablet, 40 MG PO QHS Baclofen (Baclofen) 10 Mg Tablet, 10 MG PO DAILY Carvedilol (Carvedilol) 3.125 Mg Tablet, 3.125 MG PO BID Colesevelam Hydrochloride (Welchol) 625 Mg Tablet, 625 MG PO BID Duloxetine Hcl (Duloxetine HCl) 20 Mg Capsule.dr, 20 MG PO DAILY Finasteride (Finasteride) 5 Mg Tab, 5 MG PO DAILY Furosemide (Furosemide) 40 Mg Tab, 40 MG PO DAILY Isosorbide Mononitrate (Isosorbide Mononitrate ER) 30 Mg Tab, 30 MG PO DAILY Lactose-Reduced Food (Ensure Enlive) 237 Ml Liquid, 237 ML PO QHS Nystatin (Nystatin Powder) 15 Gm Powder, 1 DOSE TOP BID APPLY TO ABDOMINAL FOLDS AND GROIN AREA Omeprazole (Omeprazole) 40 Mg Capsule.dr, 40 MG PO DAILY TAKES AT 1400 Spironolactone (Spironolactone) 25 Mg Tab, 25 MG PO DAILY Tamsulosin Hcl (Tamsulosin HCl) 0.4 Mg Capsule, 0.4 MG PO DAILY Scheduled PRN Acetaminophen (Tylenol) 325 Mg Tablet, 650 MG PO Q4H PRN for PAIN Bisacodyl (Bisacodyl) 10 Mg Supp.rect, 10 MG MD DAILY PRN for BOWEL CARE Magnesium Hydroxide (Milk of Magnesia) 400 Mg/5 Ml Oral.susp, 30 ML PO DAILY PRN for BOWEL CARE Sodium Phosphate,[place]-Dibasic (Fleet Enema) 133 Ml Enema, 1 SHYANN MD DAILY PRN for BOWEL CARE Allergies Coded Allergies: lovastatin (Verified Allergy, Intermediate, hives, 05/01/19) A-FIB/CHADSVASC A-FIB History Current/History of A-Fib/PAF?: Yes Current PO Anticoag Therapy: No Treatment Reason Anticoagulant not given: Other Other reason anticoagulant not: EDEL MAYORGA MD Jan 07, 2021 22:27
[2021-01-07] MEDS ORDERED: ISOVUE-370 76% 100ML VIAL As Ordered ONE (23:47)
[2021-01-08] VITALS (8 sets, daily range): BP systolic 94–123; BP diastolic 54–72
--- NOTE | 2021-01-08 00:39 | REPVR ---
PROCEDURE INFORMATION: Exam: CT Abdomen And Pelvis With Contrast Exam date and time: 01/07/2021 11:43 PM Age: 85 years old Clinical indication: Abdominal tenderness; Patient HX: PT severely contracted. . . ; Additional info: AMS / hypotension / guarding with abdominal palpation TECHNIQUE: Imaging protocol: Computed tomography of the abdomen and pelvis with contrast. Radiation optimization: All CT scans at this facility use at least one of these dose optimization techniques: automated exposure control; mA and/or kV adjustment per patient size (includes targeted exams where dose is matched to clinical indication); or iterative reconstruction. Contrast material: ISO; Contrast volume: 100 ml; Contrast route: INTRAVENOUS (IV); COMPARISON: CT ABD PELVIS W/O CONTRAST 12/13/2020 2:06 PM FINDINGS: Limitations: Examination is limited by motion artifact. Examination is limited by obliquity of the projection. Lungs: Left lower lobe lung consolidation. Pleural spaces: Small bilateral pleural effusions. Heart: Moderate cardiomegaly. Status post mitral and tricuspid valve replacements. Coronary arteries: Moderate coronary artery calcification. Liver: Normal. No mass. Gallbladder and bile ducts: Few tiny gallstones in the gallbladder. No gallbladder wall thickening. No ductal dilation. Pancreas: Normal. No ductal dilation. Spleen: Normal. No splenomegaly. Adrenal glands: Normal. No mass. Kidneys and ureters: Circumscribed hypodense lesion the upper pole of the left kidney measuring 11 mm. No hydronephrosis bilaterally. Stomach and bowel: Severe stool in the colon. No abnormal bowel dilatation. No abnormal bowel wall thickening. No aortic perforation. Appendix: The appendix is not seen. However, there is no evidence of appendicitis. Intraperitoneal space: Unremarkable. No free air. No significant fluid collection. Vasculature: Severe atherosclerotic disease. Fusiform infrarenal abdominal aortic aneurysm measuring up to 3.1 cm in diameter. Occlusion of the left superficial femoral artery. Lymph nodes: Unremarkable. No enlarged lymph nodes. Urinary bladder: Unremarkable as visualized. Reproductive: Prostate is normal in size. Bones/joints: Severe degenerative spine. No acute fracture. Moderate degenerative changes of the hips bilaterally. Patient is status post median sternotomy. Soft tissues: Large left inguinal hernia containing loop of colon. No evidence of incarceration. IMPRESSION: 1. Limited evaluation. 2. Severe stool in the colon. 3. Large left inguinal hernia containing loop of colon. No evidence of incarceration. Unchanged from prior. 4. Left lower lobe lung consolidation. Increased from prior. Suspicious for pneumonia. 5. Small bilateral pleural effusions. Unchanged from prior. 6. Occlusion of the left superficial femoral artery. Unchanged from prior. 7. Additional findings as described. COMMENTS: Consistent with the [employer]'s Incidental Findings Committee white paper (J Am Abelino Radiol 2018): Any incidental renal lesion less than 1 cm or classified as too small to characterize, or any incidental cystic renal lesion characterized as simple-appearing, is likely benign. No follow-up imaging is recommended for these lesions per consensus recommendations based on imaging criteria. Electronically signed by: Lloyd Arriaga On 01/08/2021 00:38:50 AM
[2021-01-08] MEDS: LR 1,000 ML IV SCH ×3 (00:41→20:20)
[2021-01-08] MEDS ORDERED: MIRALAX *UNIT DOSE* 17GM PACKET PO PRN (01:25)
[2021-01-08] MEDS ORDERED: BISACODYL 10 MG SUPP PR PRN (01:30)
--- NOTE | 2021-01-08 02:01 | ECGEPIP ---
[facility] - ED Test Date: 2021-01-07 Pat Name: SHIVA PHAN Department: Room: - Gender: Male Practice Managers: Laura CALLAHAN : 1935 Requested By: TANIA Mckeon Order Number: [id number] Reading MD: Jaya Baptiste Measurements Intervals [place] Rate: 73 P: 59 RI: 358 QRS: -86 QRSD: 116 T: 84 QT: 430 QTc: 473 Interpretive Statements Sinus rhythm with 1st degree AV block Left axis deviation Right bundle branch block LEFT ANTERIOR FASCICULAR BLOCK Anterior infarct , age undetermined Electronically Signed on 01-08-2021 2:00:47 EDT by Jaya Baptiste
--- NOTE | 2021-01-08 02:07 | ECGEPIP ---
[facility] - ED Test Date: 2021-01-07 Pat Name: SHIVA PHAN Department: Room: - Gender: Male Piece Dyer: KK : 1935 Requested By: TANIA Mckeon Order Number: [id number] Reading MD: Jaya Baptiste Measurements Intervals [place] Rate: 87 P: MN: QRS: -83 QRSD: 114 T: 63 QT: 434 QTc: 522 Interpretive Statements Sinus rhythm with first degree AV blcok Left axis deviation MODERATE INTRAVENTRICULAR CONDUCTION DELAY LEFT ANTERIOR FASCICULAR BLOCK BASELINE ARTIFACT AFFECTS INTERPRETATION Anterior infarct , age undetermined Electronically Signed on 01-08-2021 2:07:35 EDT by Jaya Baptiste
[2021-01-08] MEDS: SENOKOT S TAB PO SCH ×2 (02:27→20:19)
[2021-01-08] MEDS: ATORVASTATIN 20 MG TAB PO SCH ×2 (02:27→20:19)
[2021-01-08] MEDS: CARVedilol 3.125 MG TAB PO SCH ×3 (02:28→20:22)
[2021-01-08] MEDS: MIRALAX *UNIT DOSE* 17GM PACKET PO SCH ×3 (03:38→20:19)
[2021-01-08 06:03] LABS: HEMATOCRIT 35.8 % (42.0-52.0); HEMOGLOBIN 11.5 g/dl (13.5-17.5); MEAN CORPUSCULAR HEMOGLOBIN 31.2 pg (27.0-33.0); MEAN CORPUSCULAR HGB CONC 32.1 g/dl (32.0-36.5); PLATELET COUNT, AUTOMATED 171 10^3/uL (150-450); RED BLOOD COUNT 3.69 10^6/uL (4.30-6.10); WHITE BLOOD COUNT 5.5 10^3/uL (4.0-10.0)
[2021-01-08] MEDS: BISACODYL 10 MG SUPP PR SCH ×2 (06:08→17:15)
[2021-01-08 06:20] LABS: BLOOD UREA NITROGEN 34 MG/DL (7-18); CARBON DIOXIDE LEVEL 23 MEQ/L (21-32); CHLORIDE LEVEL 107 MEQ/L (98-107); CREATININE FOR GFR 0.88 MG/DL (0.70-1.30); GLOMERULAR FILTRATION RATE > 60.0 (>35); GLUCOSE, FASTING 94 MG/DL (70-100); POTASSIUM SERUM 4.2 MEQ/L (3.5-5.1); SODIUM LEVEL 137 MEQ/L (136-145)
[2021-01-08] MEDS ORDERED: DULoxetine 20 MG CAP (CYMBALTA) PO SCH (09:00)
[2021-01-08] MEDS ORDERED: FLEET ENEMA PR SCH (09:00)
[2021-01-08] MEDS: NYSTATIN 100,000 UNITS/GM TOPICAL PWD 15 GM TOP SCH ×2 (09:00→22:43)
[2021-01-08] MEDS: ENOXAPARIN 40MG/0.4ML SYRINGE (J1650 PER 10MG) SC SCH (09:11)
[2021-01-08] MEDS: TAMSULOSIN 0.4 MG CAP PO SCH (09:12)
[2021-01-08] MEDS: ASPIRIN 81MG ENTERIC TABLET PO SCH (09:12)
[2021-01-08] MEDS: FINASTERIDE 5 MG TAB PO SCH (09:12)
[2021-01-08] MEDS ORDERED: MOM 30ML SUSPENSION UDC PO ONE (11:35)
[2021-01-08] MEDS ORDERED: FLEET ENEMA PR PRN (11:35)
--- NOTE | 2021-01-08 11:35 | IPNPDOC ---
Text Note Date of Service The patient was seen on 01/08/21. NOTE Subjective: Patient was seen and examined he was still done in the emergency department. Patient was lethargic and unable to answer my questions. Objective: Constitutional: Intermittently arousable but sleepy. He checks it. ENT: Temporal wasting Respiratory: Lungs CTA bilaterally. No respiratory distress. Cardiovascular: Irregular heart rate no JVD Gastrointestinal: On admission he was holding his stomach and guardian grimacing on palpation however to my exam he appears comfortable in his abdomen is nondistended. BS present. Musculoskeletal: No lower extremity edema Neurologic: Unable to assess Mental Status: Unable to assess Assessment/plan: is an 85 yr old w a hx of dementia, Afib/flutter, ICH, CAD/CABG, HFrEF/HFpEF, CKD3, DLP, HTN, RLS, neuropathy, essential tremors, and debility who was sent from his NH for evaluation of AMS when compared to his baseline; he will be admitted for evaluation of the latter. # acute Encephalpathy The patient has underlying dementia but is not at his baseline per NH staff This could be progression of his illness and dementia patient has been deteriorating for some time now. He does have baseline cognitive impairment from his prior intracranial bleeds with encephalomalacia. Could be related to constipation we'll try to make him have a bowel movement. Could also be related to a UTI. Awaiting for urine to be collected. hold baclofen & duloxetine # Constipation: Oral and rectal Bowel regiment. May require enema or disimpaction. Could be contributing to his encephalopathy. # Hypotension He has a hx of HTN but is on multiple meds, his SBP has been as low as the 90s but this has been also documented during previous visits. He doesnt have SIRS. hold Lasix, isosorbide and spironolactone. IVFs. # Weakness: He has sarcopenia. Probably age-related muscle wasting and weakness. # Chronic atrial fibrillation: Rate controlled. Not on anticoagulation. # Chronically elevated Troponin. Cause unclear. EKG showed 1st degree AV block. Has been stable. # CAD/CABG / DLP: Carvedilol Aspirin & Atorvastatin # HFrEF/HFpEF: c/w Carvedilol / hold Lasix & Spironolactone # CKD3: Monitor and avoid nephrotoxins # Left heel wound: heel suspenders # DVT prophylaxis: Lovenox A Yousef Hospitalist Nelly HERRERA, I+O Nelly HERRERA, I+O Laboratory Tests 01/07/21 16:02 01/07/21 23:46 01/08/21 05:42 Vital Signs Date Time Temp Pulse Resp B/P (MAP) Pulse Ox O2 Delivery O2 Flow Rate FiO2 01/08/21 09:31 97.2 61 20 99 Room Air 01/08/21 09:30 116/66 (83) I&O- Last 24 Hours up to 6 AM 01/08/21 06:00 Intake Total 600 ml Balance 600 ml MARICRUZ ALEX MD Jan 08, 2021 11:35
[2021-01-08 13:14] LABS: PROLACTIN 12.8 NG/ML (2.1-17.7)
[2021-01-08] MEDS: ACETAMINOPHEN TAB 650MG DOSE (2X325MG) PO PRN ×2 (17:16→22:31)
[2021-01-08 22:47] LABS: APPEARANCE, URINE CLEAR (CLEAR); BACTERIA, URINE AUTO NEGATIVE (NEGATIVE); BILIRUBIN, URINE AUTO NEGATIVE (NEGATIVE); BLOOD, URINE BLOOD NEGATIVE (NEGATIVE); COLOR, URINE YELLOW (YELLOW); GLUCOSE, URINE (UA) AUTO NEGATIVE (NEGATIVE); KETONE, URINE AUTO NEGATIVE (NEGATIVE); LEUKOCYTE ESTERASE, URINE AUTO 1+ (NEGATIVE); NITRITE, URINE AUTO NEGATIVE (NEGATIVE); PROTEIN, URINE AUTO NEGATIVE (NEGATIVE); RBC, URINE AUTO 1 /HPF (0-3); SPECIFIC GRAVITY URINE AUTO 1.039 (1.002-1.035); SQUAMOUS EPITHELIAL CELL UR AU 0 /HPF (0-6); WBC, URINE AUTO 1 /HPF (0-3)
[2021-01-09] VITALS: BP 115/66
[2021-01-09 04:00] VITALS: BP 119/75
[2021-01-09] MEDS: LR 1,000 ML IV SCH ×2 (05:48→16:41)
[2021-01-09] MEDS: BISACODYL 10 MG SUPP PR SCH ×2 (05:48→17:59)
[2021-01-09 08:00] VITALS: BP 113/64
[2021-01-09 08:18] LABS: BASO # 0.1 10^3/uL (0.0-0.2); BASO % 0.7 % (0.0-1.0); EOS # 0.2 10^3/uL (0.0-0.5); EOS % 2.7 % (0.0-3.0); HEMATOCRIT 34.7 % (42.0-52.0); HEMOGLOBIN 11.5 g/dl (13.5-17.5); LYMPH # 0.6 10^3/uL (1.5-5.0); LYMPH % 8.3 % (24.0-44.0); MEAN CORPUSCULAR HEMOGLOBIN 32.4 pg (27.0-33.0); MEAN CORPUSCULAR HGB CONC 33.1 g/dl (32.0-36.5); MEAN CORPUSCULAR VOLUME 97.7 fl (80.0-96.0); MONO # 0.5 10^3/uL (0.0-0.8); MONO % 7.2 % (2.0-8.0); NEUTROPHILS # 5.9 10^3/uL (1.5-8.5); NEUTROPHILS % 80.6 % (36.0-66.0); PLATELET COUNT, AUTOMATED 184 10^3/uL (150-450); RED BLOOD COUNT 3.55 10^6/uL (4.30-6.10); WHITE BLOOD COUNT 7.4 10^3/uL (4.0-10.0)
[2021-01-09 08:37] LABS: BLOOD UREA NITROGEN 23 MG/DL (7-18); CALCIUM LEVEL 8.3 MG/DL (8.8-10.2); CARBON DIOXIDE LEVEL 25 MEQ/L (21-32); CHLORIDE LEVEL 107 MEQ/L (98-107); GLOMERULAR FILTRATION RATE > 60.0 (>35); GLUCOSE, FASTING 97 MG/DL (70-100); SODIUM LEVEL 137 MEQ/L (136-145)
[2021-01-09] MEDS: CARVedilol 3.125 MG TAB PO SCH (08:56)
[2021-01-09] MEDS: ENOXAPARIN 40MG/0.4ML SYRINGE (J1650 PER 10MG) SC SCH (08:57)
[2021-01-09] MEDS: FINASTERIDE 5 MG TAB PO SCH (08:57)
[2021-01-09] MEDS: ASPIRIN 81MG ENTERIC TABLET PO SCH (08:57)
[2021-01-09] MEDS: TAMSULOSIN 0.4 MG CAP PO SCH (08:57)
[2021-01-09] MEDS: MIRALAX *UNIT DOSE* 17GM PACKET PO SCH ×2 (08:57→21:02)
[2021-01-09] MEDS: NYSTATIN 100,000 UNITS/GM TOPICAL PWD 15 GM TOP SCH ×2 (09:04→21:03)
--- NOTE | 2021-01-09 09:06 | IPNPDOC ---
Text Note Date of Service The patient was seen on 01/09/21. NOTE Subjective: Patient was seen and examined, he is doing better today he is more awake and answering my questions appropriately close to what I think his baseline is. He says he feels pretty well. He had a large bowel movement yesterday. Tells me he still feels a little constipated. He thinks he is at his home in the residential I reorientated him. Objective: Constitutional: Awake today able to answer my questions although still a little confused could be his baseline cognitive impairment ENT: Temporal wasting Respiratory: Lungs CTA bilaterally. No respiratory distress. Cardiovascular: Irregular heart rate no JVD Gastrointestinal: Abdomen is soft bowel sounds are present abdomen is nontender to palpation Musculoskeletal: No lower extremity edema Neurologic: Unable to assess Mental Status: A&o2x Assessment/plan: is an 85 yr old w a hx of dementia, Afib/flutter, ICH, CAD/CABG, HFrEF/HFpEF, CKD3, DLP, HTN, RLS, neuropathy, essential tremors, and debility who was sent from his NH for evaluation of AMS when compared to his baseline; he will be admitted for evaluation of the latter. # acute Encephalpathy: He is doing better today after having a large bowel movement yesterday. I believe his worsening mentation was secondary to severe constipation. We'll aim for another bowel movement today. His urinalysis is negative. hold baclofen & duloxetine I anticipate with continued improvement he will be ready to go back to the residential once they're able to take him back likely Monday. # Constipation: Oral and rectal Bowel regiment. Successfully had a large bowel movement yesterday we'll aim to have another one today. # Hypotension: He has a hx of HTN but is on multiple meds, his SBP has been as low as the 90s but this has been also documented during previous visits. His blood pressure has improved today. He doesnt have SIRS. hold Lasix, isosorbide and spironolactone. IVFs. Can consider resuming his medications tomorrow and discontinuing the IV fluids. # Weakness: He has sarcopenia. Probably age-related muscle wasting and weakness. # Chronic atrial fibrillation: Rate controlled Coreg dose reduced to once daily, if he continues to have episodes of sinus bradycardia may have to be discontinued. Not on anticoagulation. # Chronically elevated Troponin. Cause unclear. EKG showed 1st degree AV block. Has been stable. # CAD/CABG / DLP: Carvedilol Aspirin & Atorvastatin # HFrEF/HFpEF: c/w Carvedilol / hold Lasix & Spironolactone # CKD3: Monitor and avoid nephrotoxins # Left heel wound: heel suspenders # DVT prophylaxis: Lovenox A Shaggy Hospitalist VS,Nelly, I+O VS, Nelly, I+O Laboratory Tests 01/09/21 08:05 Vital Signs Date Time Temp Pulse Resp B/P (MAP) Pulse Ox O2 Delivery O2 Flow Rate FiO2 01/09/21 04:00 98.1 82 119/75 (90) 96 Room Air 01/08/21 20:00 18 I&O- Last 24 Hours up to 6 AM 01/09/21 06:00 Intake Total 2795 ml Output Total 415 ml Balance 2380 ml MARICRUZ ALEX MD Jan 09, 2021 09:06
[2021-01-09 12:00] VITALS: BP 134/73
[2021-01-09] MEDS: ACETAMINOPHEN TAB 650MG DOSE (2X325MG) PO PRN (15:07)
[2021-01-09 16:00] VITALS: BP 111/63
[2021-01-09 20:00] VITALS: BP 109/62
[2021-01-09] MEDS: ATORVASTATIN 20 MG TAB PO SCH (21:03)
[2021-01-09] MEDS: SENOKOT S TAB PO SCH (21:03)
[2021-01-10 04:00] VITALS: BP 129/62
[2021-01-10] MEDS: BISACODYL 10 MG SUPP PR SCH ×2 (05:45→18:47)
[2021-01-10 06:13] VITALS: BP 127/73
[2021-01-10] MEDS: MIRALAX *UNIT DOSE* 17GM PACKET PO SCH ×2 (09:21→20:56)
[2021-01-10] MEDS: FINASTERIDE 5 MG TAB PO SCH (09:22)
[2021-01-10] MEDS: ENOXAPARIN 40MG/0.4ML SYRINGE (J1650 PER 10MG) SC SCH (09:22)
[2021-01-10] MEDS: ASPIRIN 81MG ENTERIC TABLET PO SCH (09:22)
[2021-01-10] MEDS: TAMSULOSIN 0.4 MG CAP PO SCH (09:22)
[2021-01-10] MEDS: CARVedilol 3.125 MG TAB PO SCH (09:26)
--- NOTE | 2021-01-10 10:27 | IPNPDOC ---
Text Note Date of Service The patient was seen on 01/10/21. NOTE Subjective: Patient is in good spirits this morning. He is awake and alert. He knows his name & date of but not really otherwise oriented. He doesn't have any complaints at this time. Belly is feeling well, no pain. He has multiple continent and incontinent BM's over the past few days. Objective: Constitutional: Awake today able to answer my questions although still a little confused could be his baseline cognitive impairment ENT: Temporal wasting Respiratory: Lungs CTA bilaterally. No respiratory distress. Cardiovascular: Irregular heart rate no JVD Gastrointestinal: Abdomen is soft bowel sounds are present abdomen is nontender to palpation Musculoskeletal: No lower extremity edema. Left heel has deep tissue injury with skin intact (present on admission) Neurologic: Unable to assess Mental Status: A&o2x Assessment/plan: is an 85 yr old w a hx of dementia, Afib/flutter, ICH, CAD/CABG, HFrEF/HFpEF, CKD3, DLP, HTN, RLS, neuropathy, essential tremors, and debility who was sent from his skilled nursing for evaluation of AMS when compared to his baseline. # acute metabolic Encephalpathy: Mentation better today. Will likely plan on d/c back to prior skilled nursing tomorrow (since today is Monday). His urinalysis is negative. Continue to hold baclofen & duloxetine. # Constipation: Oral and rectal Bowel regiment. Much improved. continue with same bowel regimen. # Hypotension: He has a hx of HTN but is on multiple meds, his SBP has been as low as the 90s but this has been also documented during previous visits. Carvedilol has been resumed. Pressures are still within acceptable limits, continue to hold Lasix, isosorbide and spironolactone. IVFs were already discontinued yesterday. # Weakness: He has sarcopenia. Probably age-related muscle wasting and weakness. # Chronic atrial fibrillation: Rate controlled Coreg dose reduced to once daily, if he continues to have episodes of sinus bradycardia may have to be discontinued. Not on anticoagulation. # Chronically elevated Troponin. Cause unclear. EKG showed 1st degree AV block. Has been stable. # CAD/CABG / DLP: Carvedilol Aspirin & Atorvastatin # HFrEF/HFpEF: c/w Carvedilol / hold Lasix & Spironolactone # CKD3: Monitor and avoid nephrotoxins # Left heel wound: heel suspenders # DVT prophylaxis: Lovenox VS,Fishbone, I+O VS, Fishbone, I+O Vital Signs Date Time Temp Pulse Resp B/P (MAP) Pulse Ox O2 Delivery O2 Flow Rate FiO2 01/10/21 09:26 65 107/64 01/10/21 06:13 97.4 18 95 Room Air I&O- Last 24 Hours up to 6 AM 01/10/21 06:00 Intake Total 3000 ml Output Total 400 ml Balance 2600 ml CARLINE JACOBO DO Jan 10, 2021 10:27
[2021-01-10] MEDS: NYSTATIN 100,000 UNITS/GM TOPICAL PWD 15 GM TOP SCH ×2 (11:47→20:55)
[2021-01-10 14:00] VITALS: BP 136/81
[2021-01-10] MEDS: SENOKOT S TAB PO SCH (20:56)
[2021-01-10] MEDS: ATORVASTATIN 20 MG TAB PO SCH (20:56)
[2021-01-10 22:00] VITALS: BP 139/88
[2021-01-11] MEDS: BISACODYL 10 MG SUPP PR SCH ×2 (05:11→17:31)
[2021-01-11 06:00] VITALS: BP 130/61
[2021-01-11] MEDS ORDERED: SENN-52 PO (08:07)
[2021-01-11] MEDS: FINASTERIDE 5 MG TAB PO SCH (08:44)
[2021-01-11] MEDS: TAMSULOSIN 0.4 MG CAP PO SCH (08:48)
[2021-01-11] MEDS: MIRALAX *UNIT DOSE* 17GM PACKET PO SCH ×2 (08:49→20:51)
[2021-01-11] MEDS: ENOXAPARIN 40MG/0.4ML SYRINGE (J1650 PER 10MG) SC SCH (08:49)
[2021-01-11] MEDS: CARVedilol 3.125 MG TAB PO SCH (08:49)
[2021-01-11] MEDS: ASPIRIN 81MG ENTERIC TABLET PO SCH (08:49)
[2021-01-11] MEDS: NYSTATIN 100,000 UNITS/GM TOPICAL PWD 15 GM TOP SCH ×2 (08:50→20:51)
[2021-01-11 14:00] VITALS: BP 103/57
--- NOTE | 2021-01-11 18:38 | DS.PDOC ---
Discharge Summary General Date of Admission Jan 07, 2021 at 22:21 Date of Discharge 01/11/2021 Discharge Summary PRIMARY CARE PHYSICIAN: Clara Jenkins DO ATTENDING AT TIME OF DISCHARGE: Dr. 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 Trivedi is an 78-year-old male who was sent from [facility] for evaluation regarding altered mental status. Apparently he does have a diagnosis of dementia, but he was unresponsive and without a pulse, therefore he was sent to the emergency department. Upon arrival to the ED he apparently was lethargic and, and mildly arousable via sternal rub. Multiple diagnostic investigations were performed including head CT, chest x-ray, abdomen/pelvis CT, CBC, urinalysis, cardiac marker profile, none of which seemed to point to a specific etiology. He does have a chronically elevated troponin, likely secondar y to chronic atrial fibrillation and heart failure, and per medical record and the patient's family declined transfer to the PCI capable facility. He also was found to have constipation, and after the administration of all meds he did have a large bowel movement, and then his mentation seemed to improve. Whether or not this is a coincidence, or if he had another metabolic process that spontaneously resolved it is difficult to say. Nevertheless, his mentation is significantly improved. He still exhibits signs and symptoms of dementia when speaking to him, but he is awake, alert, and does not have any complaints at this time. He appe ars to be at his baseline status and is appropriate for discharge at this time. He was having some issues swallowing thin liquids, therefore speech therapy was requested to perform an evaluation. They recommend "level 1/pureed solids. Thin liquids and should be administered by staff such to regulate the volume using straw pinches (Pinch straw to stop flow of liquid just have to see fluid flow through a straw and into the patient's mouth; remove straw to allow more successful swallow)." PHYSICAL EXAMINATION ON DISCHARGE: GENERAL: Awake, alert, not oriented CARDIOVASCULAR EXAMINATION: Regular rate and rhythm, with no rubs, gallops, or murmur. RESPIRATORY EXAMINATION: Clear to auscultation bilaterally with no wheezes, rales, or rhonchi. ABDOMINAL EXAMINATION: Soft, nontender, nondistended. Bowel sounds present. EXTREMITIES: No clubbing or edema noted. Multiple areas of pressure injuries as documented on his admission. Lower extremity contractures noted. He'll float oj ots are in place. DISPOSITION: Back to [facility] DISCHARGE INSTRUCTIONS: Follow-up with his primary care provider within 7-10 days. He may return to his prior level of activity. Dietary recommendations as above. Vital Signs/I&Os Vital Signs Date Time Temp Pulse Resp B/P (MAP) Pulse Ox O2 Delivery O2 Flow Rate FiO2 01/11/21 14:00 97.8 61 18 103/57 (72) 92 Room Air I&O- Last 24 Hours up to 6 AM 01/11/21 06:00 Intake Total 320 ml Output Total 0 ml Balance 320 ml Laboratory Data Labs 24H Laboratory Tests 2 01/11/21 07:51: Coronavirus (COVID-19)(PCR) NEGATIVE Discharge Medications Scheduled Acetaminophen (Acetaminophen) 325 Mg Tablet, 650 MG PO TID, (Reported) Arginine/Glutamine/Calcium Bmb (Tim Packet) 1 Each Powd.pack, 1 POW PO BID, (Reported) TAKES AT 0800 AND 1200 Aspirin (Aspirin EC) 81 Mg Tablet.dr, 81 MG PO DAILY, (Reported) Atorvastatin Calcium (Atorvastatin Calcium) 40 Mg Tablet, 40 MG PO QHS, (Reported) Baclofen (Baclofen) 10 Mg Tablet, 10 MG PO DAILY, (Reported) Carvedilol (Carvedilol) 3.125 Mg Tablet, 3.125 MG PO BID, (Reported) Colesevelam Hydrochloride (Welchol) 625 Mg Tablet, 625 MG PO BID, (Reported) Duloxetine Hcl (Duloxetine HCl) 20 Mg Capsule.dr, 20 MG PO DAILY, (Reported) Finasteride (Finasteride) 5 Mg Tab, 5 MG PO DAILY, (Reported) Furosemide (Furosemide) 40 Mg Tab, 40 MG PO DAILY, (Reported) Isosorbide Mononitrate (Isosorbide Mononitrate ER) 30 Mg Tab, 30 MG PO DAILY, (Reported) Lactose-Reduced Food (Ensure Enlive) 237 Ml Liquid, 237 ML PO QHS, (Reported) Nystatin (Nystatin Powder) 15 Gm Powder, 1 DOSE TOP BID, (Reported) APPLY TO ABDOMINAL FOLDS AND GROIN AREA Omeprazole (Omeprazole) 40 Mg Capsule.dr, 40 MG PO DAILY, (Reported) TAKES AT 1400 Sennosides/Docusate Sodium (Senna Plus Tablet) 1 Each Tablet, 1 TAB PO QHS Spironolactone (Spironolactone) 25 Mg Tab, 25 MG PO DAILY, (Reported) Tamsulosin Hcl (Tamsulosin HCl) 0.4 Mg Capsule, 0.4 MG PO DAILY, (Reported) Scheduled PRN Acetaminophen (Tylenol) 325 Mg Tablet, 650 MG PO Q4H PRN for PAIN, (Reported) Bisacodyl (Bisacodyl) 10 Mg Supp.rect, 10 MG [place] DAILY PRN for BOWEL CARE, (Reported) Magnesium Hydroxide (Milk of Magnesia) 400 Mg/5 Ml Oral.susp, 30 ML PO DAILY PRN for BOWEL CARE, (Reported) Sodium Phosphate,[place]-Dibasic (Fleet Enema) 133 Ml Enema, 1 SHYANN [place] DAILY PRN for BOWEL CARE, (Reported) Allergies Coded Allergies: lovastatin (Verified Allergy, Intermediate, hives, 05/01/19) LUKAS ALLISON DO Jan 11, 2021 18:38
[2021-01-11] MEDS: SENOKOT S TAB PO SCH (20:51)
[2021-01-11] MEDS: ATORVASTATIN 20 MG TAB PO SCH (20:51)
[2021-01-11 22:00] VITALS: BP 102/55
[2021-01-12] MEDS: BISACODYL 10 MG SUPP PR SCH (05:15)
[2021-01-12 06:00] VITALS: BP 112/60
[2021-01-12] MEDS: ASPIRIN 81MG ENTERIC TABLET PO SCH (08:42)
[2021-01-12] MEDS: FINASTERIDE 5 MG TAB PO SCH (08:43)
[2021-01-12] MEDS: NYSTATIN 100,000 UNITS/GM TOPICAL PWD 15 GM TOP SCH (08:43)
[2021-01-12] MEDS: ENOXAPARIN 40MG/0.4ML SYRINGE (J1650 PER 10MG) SC SCH (08:43)
[2021-01-12] MEDS: TAMSULOSIN 0.4 MG CAP PO SCH (08:43)
[2021-01-12] MEDS: MIRALAX *UNIT DOSE* 17GM PACKET PO SCH (08:43)
[2021-01-12 08:45] VITALS: BP 112/60
[2021-01-12] MEDS: CARVedilol 3.125 MG TAB PO SCH (08:45)
--- NOTE | 2021-01-12 10:51 | DS.PDOC ---
Discharge Summary General Date of Admission Jan 07, 2021 at 22:21 Date of Discharge 01/12/21 Discharge Summary pls have corrections unit supervisor call [employer] at [phone] alston's discharge note addendum if needed urgently. [id number]. Vital Signs/I&Os Vital Signs Date Time Temp Pulse Resp B/P (MAP) Pulse Ox O2 Delivery O2 Flow Rate FiO2 01/12/21 08:45 70 112/60 01/12/21 06:00 97.6 18 96 Room Air I&O- Last 24 Hours up to 6 AM 01/12/21 06:00 Intake Total 530 ml Output Total 0 ml Balance 530 ml Discharge Medications Scheduled Acetaminophen (Acetaminophen) 325 Mg Tablet, 650 MG PO TID, (Reported) Arginine/Glutamine/Calcium Bmb (Tim Packet) 1 Each Powd.pack, 1 POW PO BID, (Reported) TAKES AT 0800 AND 1200 Aspirin (Aspirin EC) 81 Mg Tablet.dr, 81 MG PO DAILY, (Reported) Atorvastatin Calcium (Atorvastatin Calcium) 40 Mg Tablet, 40 MG PO QHS, (Reported) Baclofen (Baclofen) 10 Mg Tablet, 10 MG PO DAILY, (Reported) Carvedilol (Carvedilol) 3.125 Mg Tablet, 3.125 MG PO BID, (Reported) Colesevelam Hydrochloride (Welchol) 625 Mg Tablet, 625 MG PO BID, (Reported) Duloxetine Hcl (Duloxetine HCl) 20 Mg Capsule.dr, 20 MG PO DAILY, (Reported) Finasteride (Finasteride) 5 Mg Tab, 5 MG PO DAILY, (Reported) Furosemide (Furosemide) 40 Mg Tab, 40 MG PO DAILY, (Reported) Isosorbide Mononitrate (Isosorbide Mononitrate ER) 30 Mg Tab, 30 MG PO DAILY, (Reported) Lactose-Reduced Food (Ensure Enlive) 237 Ml Liquid, 237 ML PO QHS, (Reported) Nystatin (Nystatin Powder) 15 Gm Powder, 1 DOSE TOP BID, (Reported) APPLY TO ABDOMINAL FOLDS AND GROIN AREA Omeprazole (Omeprazole) 40 Mg Capsule.dr, 40 MG PO DAILY, (Reported) TAKES AT 1400 Sennosides/Docusate Sodium (Senna Plus Tablet) 1 Each Tablet, 1 TAB PO QHS Spironolactone (Spironolactone) 25 Mg Tab, 25 MG PO DAILY, (Reported) Tamsulosin Hcl (Tamsulosin HCl) 0.4 Mg Capsule, 0.4 MG PO DAILY, (Reported) Scheduled PRN Acetaminophen (Tylenol) 325 Mg Tablet, 650 MG PO Q4H PRN for PAIN, (Reported) Bisacodyl (Bisacodyl) 10 Mg Supp.rect, 10 MG [place] DAILY PRN for BOWEL CARE, (Reported) Magnesium Hydroxide (Milk of Magnesia) 400 Mg/5 Ml Oral.susp, 30 ML PO DAILY PRN for BOWEL CARE, (Reported) Sodium Phosphate,[place]-Dibasic (Fleet Enema) 133 Ml Enema, 1 SHYANN [place] DAILY PRN for BOWEL CARE, (Reported) Allergies Coded Allergies: lovastatin (Verified Allergy, Intermediate, hives, 05/01/19) AMANDA ALSTON MD Jan 12, 2021 10:51
[2021-01-12] MEDS: ACETAMINOPHEN TAB 650MG DOSE (2X325MG) PO PRN (11:56)
--- NOTE | 2021-01-12 14:33 | MHCR ---
CONSULTATION DATE: 01/12/2021 HISTORY OF PRESENT ILLNESS: Patient is an 85-year-old male admitted to the medical floor, unresponsive. Despite patient's DO NOT RESUSCITATE (DNR) status, patient's family wanted him to be sent to the hospital. Patient has a history of dementia, atrial fibrillation, hypertension. Patient was admitted for stabilization. He reported suicidal ideation yesterday night and psychiatric evaluation was called to assess patient's suicidality. Staff and the physician were consulted. Patient was evaluated. He remembered that he expressed suicidal thoughts yesterday night; however, currently denies suicidal thoughts. Patient also expressed that he did not know why he said that. Currently he is on Cymbalta for depression. He has a history of dementia, so he is unable to give full history. MENTAL STATUS EXAMINATION: Thin built, emaciated, elderly patient, cooperative, made poor eye contact. Speech is somewhat feeble, goal-directed, monosyllabic. Mood is euthymic. Affect is mood congruent. Thought content: Denies any suicidal or homicidal ideas. He denies any auditory or visual hallucinations. He is oriented to place, person and time. His attention is fair. He could count from 1-10 forwards and backwards. His impulse control is fair. Recent memory is impaired. Remote memory is normal. His insight and judgment are fair. DIAGNOSES: 1. Depressive disorder, unspecified. 2. History of dementia of Alzheimer's type. PLAN: Currently, patient has been stabilized medically and he is on the way to go to a [place] [facility]. Currently does not express any suicidal thoughts. He has no history of suicide attempts in the past. He is currently not a danger to self or others. He could be discharged to the [place] [facility]. He will be followed up by clinical orthoptist and psychiatrist in the [place] [facility].
== END 2021-01-12 12:33 | DRG 391 ==
LOC: EDBD 15:03 → M ED 15:03 → M ED INP 22:21 → ENRESERV 01-08 08:02 → M ICU 01-08 09:47 → M MSPAV 01-10 06:11
PROVIDERS: ADMIT Internal Medicine; ATTEND Neuromusculoskeletal Medicine & OMM
DX: K59.00 Constipation, unspecified (principal); G93.41 Metabolic encephalopathy; I48.11 Longstanding persistent atrial fibrillation; I50.22 Chronic systolic (congestive) heart failure; I13.0 Hypertensive heart and chronic kidney disease with heart failure and stage 1 through stage 4 chronic kidney disease, or unspecified chronic kidney disease; R45.851 Suicidal ideations; F03.90 Unspecified dementia, unspecified severity, without behavioral disturbance, psychotic disturbance, mood disturbance, and anxiety; I25.10 Atherosclerotic heart disease of native coronary artery without angina pectoris; N18.30 Chronic kidney disease, stage 3 unspecified; E78.5 Hyperlipidemia, unspecified; G62.9 Polyneuropathy, unspecified; G25.81 Restless legs syndrome; Z66 Do not resuscitate; G25.0 Essential tremor; M62.84 Sarcopenia; I71.4 Abdominal aortic aneurysm, without rupture; I95.89 Other hypotension; D64.9 Anemia, unspecified; F32.9 Major depressive disorder, single episode, unspecified; N40.0 Benign prostatic hyperplasia without lower urinary tract symptoms; L89.626 Pressure-induced deep tissue damage of left heel; M85.80 Other specified disorders of bone density and structure, unspecified site; Z87.891 Personal history of nicotine dependence; Z95.1 Presence of aortocoronary bypass graft; Z20.822 Contact with and (suspected) exposure to COVID-19; Z79.82 Long term (current) use of aspirin; Z79.899 Other long term (current) drug therapy; Z88.8 Allergy status to other drugs, medicaments and biological substances

== ENCOUNTER → 2021-01-18 | Outpatient (REF) | payer MEDICARE, MEDICAID ==
[~2021-01-18] MED LIST changes: +ACET-907 PO; +BACL10TA2 PO; +BISA10SU20 PR; +ENSU1LIQ36 PO; +FLEEENE12 PR; +JUVEPOW3 PO; +MILKSUS3 PO; +SENN-23 PO; +SENN-52 PO
[2021-01-18 11:32] LABS: HEMATOCRIT 36.6 % (42.0-52.0); HEMOGLOBIN 11.9 g/dl (13.5-17.5); MEAN CORPUSCULAR HEMOGLOBIN 32.1 pg (27.0-33.0); MEAN CORPUSCULAR HGB CONC 32.5 g/dl (32.0-36.5); MEAN CORPUSCULAR VOLUME 98.7 fl (80.0-96.0); PLATELET COUNT, AUTOMATED 208 10^3/uL (150-450); RED BLOOD COUNT 3.71 10^6/uL (4.30-6.10); WHITE BLOOD COUNT 6.6 10^3/uL (4.0-10.0)
[2021-01-18 11:58] LABS: BLOOD UREA NITROGEN 20 MG/DL (7-18); CALCIUM LEVEL 8.5 MG/DL (8.8-10.2); CARBON DIOXIDE LEVEL 24 MEQ/L (21-32); CHLORIDE LEVEL 105 MEQ/L (98-107); GLOMERULAR FILTRATION RATE > 60.0 (>35); GLUCOSE, FASTING 110 MG/DL (70-100); POTASSIUM SERUM 4.4 MEQ/L (3.5-5.1); SODIUM LEVEL 139 MEQ/L (136-145)
== END ==
PROVIDERS: ATTEND Internal Medicine
DX: N44.8 Other noninflammatory disorders of the testis (principal)

== ENCOUNTER → 2021-01-20 | Outpatient (CLI) | payer MEDICARE, MEDICAID ==
--- NOTE | 2021-01-20 11:32 | REP ---
INDICATION: ENLARGED TESTICLE. COMPARISON: 12/13/2020. TECHNIQUE: Real-time sonographic evaluation of scrotum and contents performed. FINDINGS: Testicles are normal in size and echotexture, right testicle measuring 3.1 x 2.0 x 2.5 cm left testicle 4.2 x 2.0 x 2.4 cm. There is no testicular mass or torsion, blood flow is seen in each testicle with duplex Doppler evaluation. There is a small right hydrocele. Once again a left inguinal hernia contains fat and bowel extending into the left hemiscrotum. IMPRESSION: No significant change compared to prior study. No testicular mass or torsion. A left inguinal hernia contains bowel loops, and extends into the left hemiscrotum. <Electronically signed by Lukas Caraballo > 01/20/21 1126
== END ==
LOC: M RAD 10:38
PROVIDERS: ATTEND Physician Assistant
DX: N50.89 Other specified disorders of the male genital organs (principal)

== ENCOUNTER 2021-01-22 09:17 | Inpatient (IN) | payer MEDICARE, MEDICAID ==
[~2021-01-22] VITALS: Ht 167.6 cm; Wt 59.8 kg
[2021-01-22] MEDS: OMEPRAZOLE 20 MG CAP PO SCH (09:00)
[2021-01-22] MEDS: DULoxetine 20 MG CAP (CYMBALTA) PO SCH (09:00)
[2021-01-22] MEDS: TAMSULOSIN 0.4 MG CAP PO SCH (09:00)
[2021-01-22] MEDS: SPIRONOLACTONE 25 MG TAB PO SCH (09:00)
[2021-01-22] MEDS: ASPIRIN 81MG ENTERIC TABLET PO SCH (09:00)
[2021-01-22] MEDS: COLESEVELAM 625 MG TAB (WELCHOL) PO SCH ×2 (09:00→21:16)
[2021-01-22] MEDS: ISOSORBIDE MON. (IMDUR) 30 MG XR TAB PO SCH (09:00)
[2021-01-22] MEDS: FINASTERIDE 5 MG TAB PO SCH (09:00)
[~2021-01-22 09:17] MED LIST changes: +FINASTERIDE 5 MG TAB PO SCH; +FUROSEMIDE 40 MG TAB PO SCH; -SENN-23 PO; +SPIRONOLACTONE 25 MG TAB PO SCH
[2021-01-22] MEDS ORDERED: SENN-23 PO (09:53)
[2021-01-22 10:21] LABS: BASO % 0.7 % (0.0-1.0); EOS # 0.1 10^3/uL (0.0-0.5); EOS % 1.2 % (0.0-3.0); HEMATOCRIT 37.3 % (42.0-52.0); HEMOGLOBIN 12.1 g/dl (13.5-17.5); LYMPH # 0.3 10^3/uL (1.5-5.0); LYMPH % 5.5 % (24.0-44.0); MEAN CORPUSCULAR HEMOGLOBIN 31.4 pg (27.0-33.0); MEAN CORPUSCULAR HGB CONC 32.4 g/dl (32.0-36.5); MEAN CORPUSCULAR VOLUME 96.9 fl (80.0-96.0); MONO # 0.5 10^3/uL (0.0-0.8); MONO % 8.1 % (2.0-8.0); NEUTROPHILS # 4.8 10^3/uL (1.5-8.5); NEUTROPHILS % 83.6 % (36.0-66.0); PLATELET COUNT, AUTOMATED 211 10^3/uL (150-450); RED BLOOD COUNT 3.85 10^6/uL (4.30-6.10); WHITE BLOOD COUNT 5.8 10^3/uL (4.0-10.0)
[2021-01-22] MEDS ORDERED: ASPIRIN 81 MG CHEW TABLET PO ONE (10:30)
[2021-01-22] MEDS ORDERED: TAMSULOSIN 0.4 MG CAP PO ONE (10:30)
[2021-01-22] MEDS ORDERED: DULoxetine 20 MG CAP (CYMBALTA) PO ONE (10:30)
[2021-01-22] MEDS ORDERED: CARVedilol 3.125 MG TAB PO ONE (10:30)
[2021-01-22] MEDS: ISOSORBIDE MON. (IMDUR) 60 MG XR TAB PO ONE ×2 (10:30→11:38)
[2021-01-22] MEDS: FUROSEMIDE 40 MG TAB PO ONE ×2 (10:30→11:37)
--- NOTE | 2021-01-22 10:31 | REP ---
INDICATION: Coronavirus workup. COMPARISON: 12/13/2020, 12/17/2020, and 01/07/2021 TECHNIQUE: Portable AP chest with the patient semi upright. FINDINGS: On 01/07/2021 the patient is significantly rotated and almost the entire left lung is obscured. On 12/17/2020 there is a large skin fold artifact over the right hemithorax and the patient is slightly rotated. On 12/13/2020 the patient in satisfactory position. There is mild diffuse bilateral interstitial coarsening. On the study today the mild interstitial coarsening in the right lung is similar to 12/13/2020. However, there is a new patchy infiltrate in the left mid lung as an interval change. Cardiomegaly, sternotomy wires and 2 cardiac valve replacements are all unchanged. IMPRESSION: New patchy infiltrate in the left mid lung. <Electronically signed by Lukas Shields > 01/22/21 [id number]
[2021-01-22] MEDS ORDERED: ASPIRIN 81MG ENTERIC TABLET PO ONE (10:35)
[2021-01-22 10:41] LABS: ALT/SGPT 21 U/L (12-78); BLOOD UREA NITROGEN 29 MG/DL (7-18); CALCIUM LEVEL 8.6 MG/DL (8.8-10.2); CARBON DIOXIDE LEVEL 25 MEQ/L (21-32); CHLORIDE LEVEL 105 MEQ/L (98-107); CK-MB VALUE MASS 2.9 NG/ML (<3.6); CPK CREATINE PHOSPHOKINASE 75 U/L (39-308); CREATININE FOR GFR 0.79 MG/DL (0.70-1.30); FERRITIN 125 NG/ML (26-388); GLOMERULAR FILTRATION RATE > 60.0 (>35); GLUCOSE, FASTING 91 MG/DL (70-100); LDH LACTATE DEHYDROGENASE 217 U/L (87-241); MB/CK RELATIVE INDEX 3.87 (< OR =4); POTASSIUM SERUM 4.6 MEQ/L (3.5-5.1); SODIUM LEVEL 136 MEQ/L (136-145); TOTAL PROTEIN 6.7 GM/DL (6.4-8.2); TROPONIN I 0.18 NG/ML (< 0.10)
[2021-01-22 10:55] LABS: D-DIMER QUANT > 4000.00 ng/ml (<500)
[2021-01-22] MEDS ORDERED: ISOVUE-370 76% 100ML VIAL As Ordered ONE ×2 (11:09→13:43)
[2021-01-22] MEDS ORDERED: PILL CUTTER 1 EACH XX ONE (11:31)
[2021-01-22] MEDS ORDERED: BISACODYL 10 MG SUPP PR PRN (12:55)
[2021-01-22] MEDS ORDERED: FLEET ENEMA PR PRN (12:55)
[2021-01-22] MEDS ORDERED: ACETAMINOPHEN TAB 650MG DOSE (2X325MG) PO PRN (12:55)
[2021-01-22] MEDS ORDERED: MOM 30ML SUSPENSION UDC PO PRN (12:55)
[2021-01-22 13:56] LABS: FIBRINOGEN 443 MG/DL (221-452)
[2021-01-22 14:02] LABS: NT-PRO BNP 20446 PG/ML (<450)
--- NOTE | 2021-01-22 14:22 | HPEPDOC ---
General Date of Admission 01/22/21 Date of Service: Jan 22, 2021 Chief Complaint The patient is a 85-year-old male admitted with a reason for visit of Chest Pain, Covid +. Source: Patient Exam Limitations: No limitations Severity: Moderate History of Present Illness Patient is 85 years old male with history of dementia who cannot provide history, coronary artery diseases, status post CABG, chronic CHF with preserved ejection fraction, chronic kidney diseases stage III was transferred to the hospital from [facility]. According to the staff patient complained of chest pain for past 4 days, substernal, 5 out of 7, intermittent partially alleviated with nitroglycerin. Also patient was tested positive for COVID 19 in the morning in [facility]. Patient did not have cough or sputum production. In ER patient was found normal oxygen saturation, blood gas pH 7.4, PCO2 28, PO2 68. During ambulation his pulse ox dropped to 86 and then in the rest his pulse ox was 96%. Labs pertinent for no leukocytosis, hemoglobin 12.2, troponin 0.2, d- dimer showed > 4000. X-ray showed the mild interstitial coarsening in the right lung is similar to 12/13/2020. However, there is a new patchy infiltrate in the left mid lung as an interval change. Cardiomegaly, sternotomy wires and 2 cardiac valve replacements are all unchanged. Of note patient received 2 shots of Covid vaccination, last vaccine dose was more than to 2 weeks ago. Home Medications Scheduled Acetaminophen (Acetaminophen) 325 Mg Tablet, 650 MG PO TID, (Reported) Arginine/Glutamine/Calcium Bmb (Tim Packet) 1 Each Powd.pack, 1.5 GM PO BID, (Reported) TAKES AT 0800 AND 1200 Aspirin (Aspirin EC) 81 Mg Tablet.dr, 81 MG PO DAILY, (Reported) Atorvastatin Calcium (Atorvastatin Calcium) 40 Mg Tablet, 40 MG PO QHS, (Reported) Carvedilol (Carvedilol) 3.125 Mg Tablet, 3.125 MG PO BID, (Reported) Colesevelam Hydrochloride (Welchol) 625 Mg Tablet, 625 MG PO BID, (Reported) Duloxetine Hcl (Duloxetine HCl) 20 Mg Capsule.dr, 20 MG PO DAILY, (Reported) Finasteride (Finasteride) 5 Mg Tab, 5 MG PO DAILY, (Reported) Furosemide (Furosemide) 40 Mg Tab, 40 MG PO DAILY, (Reported) Isosorbide Mononitrate (Isosorbide Mononitrate ER) 30 Mg Tab, 30 MG PO DAILY, (Reported) Lactose-Reduced Food (Ensure Enlive) 237 Ml Liquid, 237 ML PO QHS, (Reported) Omeprazole (Omeprazole) 40 Mg Capsule.dr, 40 MG PO DAILY, (Reported) TAKES AT 1400 Sennosides/Docusate Sodium (Senna-S Tablet) 1 Each Tablet, 2 TAB PO QHS, (Reported) Spironolactone (Spironolactone) 25 Mg Tab, 25 MG PO DAILY, (Reported) Tamsulosin Hcl (Tamsulosin HCl) 0.4 Mg Capsule, 0.4 MG PO DAILY, (Reported) Scheduled PRN Acetaminophen (Tylenol) 325 Mg Tablet, 650 MG PO Q4H PRN for PAIN, (Reported) Bisacodyl (Bisacodyl) 10 Mg Supp.rect, 10 MG SD DAILY PRN for BOWEL CARE, (Reported) Magnesium Hydroxide (Milk of Magnesia) 400 Mg/5 Ml Oral.susp, 30 ML PO DAILY PRN for BOWEL CARE, (Reported) Sodium Phosphate,[place]-Dibasic (Fleet Enema) 133 Ml Enema, 1 SHYANN SD DAILY PRN for BOWEL CARE, (Reported) Allergies Coded Allergies: lovastatin (Verified Allergy, Intermediate, hives, 05/01/19) Past Medical History Medical History Dementia Longstanding persistent Atrial Fib/Flutter s/p MAZE procedure (not on AC bc of ICH) Right parietal lobe and subarachnoid 2000, right frontal intrparenchymal hemorrhage 2011 s/p right craniotomy / residual frontal and parietal encephalomalacia CAD/CABG HFrEF/HFpEF CKD3 DLP HTN Peripheral Neuropathy RLS Essential tremors Diverticulosis AAA Debility / deconditioning BPH Osteopenia Bioprosthetic mitral valve Tricuspid annuloplasty Left heel wound Bialteral lens implantation Surgical History Bioprosthetic mitral valve Tricuspid annuloplasty Bilateral lens implantation CABG Family History Brother circulation problems / Brother during surgery Social History * Smoker: former Smoker Alcohol: Denies Drugs: denies A-FIB/CHADSVASC A-FIB History Current/History of A-Fib/PAF?: Yes Current PO Anticoag Therapy: Yes Review of Systems Constitutional: Denies: Chills, Fever Eyes: Denies: Pain ENT: Denies: Head Aches Skin: Denies: Rash, Lesions Pulmonary: Reports: Dyspnea; Denies: Cough Cardiovascular: Reports: Chest Pain Gastrointestinal: Denies: Nausea Genitourinary: Denies: Dysuria, Frequency Hematologic: Denies: Bruising Endocrine: Denies: Polydipsia, Polyphagia Musculoskeletal: Denies: Neck Pain Neurological: Denies: Weakness Psych: Reports: Mood Normal, Memory Issues Physical Examination General Exam: Positive: Alert Eye Exam: Positive: PERRLA ENT Exam: Positive: Atraumatic Neck Exam: Positive: Supple, JVD Chest Exam: Positive: Diminished Heart Exam: Positive: Irregular Rhythm Telemetry: Positive: Atrial fibrillation Abdomen Exam: Positive: Normal bowel sounds Extremity Exam: Negative: Clubbing Skin Exam: Positive: Lesion (multiple found of left foot and ankle, left knee wound unstageable with erythema 3X5 cm), Other skin issue Psych Exam: Positive: Other (left-sided body contraction, shoulder, arm, hands); Negative: Memory Intact Vital Signs Vital Signs Date Time Temp Pulse Resp B/P (MAP) Pulse Ox O2 Delivery O2 Flow Rate FiO2 01/22/21 12:15 93 20 112/64 (80) 93 Room Air 01/22/21 09:20 98.3 Laboratory Data Labs 24H Laboratory Tests 2 01/22/21 09:57: Immature Granulocyte % (Auto) 0.9, Neutrophils (%) (Auto) 83.6H, Lymphocytes (%) (Auto) 5.5L, Monocytes (%) (Auto) 8.1H, Eosinophils (%) (Auto) 1.2, Basophils (%) (Auto) 0.7, Neutrophils # (Auto) 4.8, Lymphocytes # (Auto) 0.3L, Monocytes # (Auto) 0.5, Eosinophils # (Auto) 0.1, Basophils # (Auto) 0.0, Nucleated Red Blood Cells % (auto) 0.0, D-Dimer, Quantitative > 4000.00H, Anion Gap 6L, Glomerular Filtration Rate > 60.0, Lactic Acid Level 1.5, Calcium Level 8.6L, Ferritin 125, Total Bilirubin 1.0, Aspartate Amino Transf (AST/SGOT) 18, Alanine Aminotransferase (ALT/SGPT) 21, Alkaline Phosphatase 151H, Lactate Dehydrogenase 217, Total Creatine Kinase 75, Creatine Kinase MB 2.9, Creatine Kinase MB Relative Index 3.87, Troponin I 0.18H, C-Reactive Protein, Quantitative 4.30H, Total Protein 6.7, Albumin 3.0L, Albumin/Globulin Ratio 0.8 CBC/BMP Laboratory Tests 01/22/21 09:57 Assessment/Plan Patient is 85 years old male with history of dementia who cannot provide history, coronary artery diseases, status post CABG, chronic CHF with preserved ejection fraction, chronic kidney diseases stage III was transferred to the hospital from [facility]. According to the staff patient complained of chest pain for past 4 days, substernal, 5 out of 7, intermittent partially alleviated with nitroglycerin. Also patient was tested positive for COVID 19 in the morning in [facility]. Patient did not have cough or sputum production. In ER patient was found normal oxygen saturation, blood gas pH 7.4, PCO2 28, PO2 68. During ambulation his pulse ox dropped to 86 and then in the rest his pulse ox was 96%. Labs pertinent for no leukocytosis, hemoglobin 12.2, troponin 0.2, d- dimer showed > 4000. X-ray showed the mild interstitial coarsening in the right lung is similar to 12/13/2020. However, there is a new patchy infiltrate in the left mid lung as an interval change. Cardiomegaly, sternotomy wires and 2 cardiac valve replacements are all unchanged. Problems (1) Pneumonia due to COVID-19 virus Status: Acute Problem Text: Patient oxygen saturation 96% on the rest X-ray showed the mild interstitial coarsening in the right lung is similar to 12/13/2020. However, there is a new patchy infiltrate in the left mid lung as an interval change. Of note patient received 2 shots of Covid vaccination, last vaccine dose was more than to 2 weeks ago. There is concern for viral PNA despite completed vaccination. Also differential diagnosis includes PE given d-dimer>4000. I ordered CTA, but it would be limited study due to left-sided body contracture I ordered Echo STAT Doppler ultrasound of both legs to exclude DVT Patient has normal oxygen saturation on the room air on the rest. I will hold IV Remdesevir and Iv dexamethasone for now I'm hesitant to start full dose anticoagulation therapy due to previous 2 hemorrhagic strokes: Right parietal lobe and subarachnoid 2000, right frontal intraparenchymal hemorrhage 2011 s/p right craniotomy I discussed with his daughter the current situation with possible pulmonary emboli I explained the risk and benefits of anticoagulation in the light of previous 2 hemorrhagic strokes His daughter Janette [phone] asked me to postpone full dose of anticoagulation until tomorrow. (2) Dementia Status: Acute Problem Text: Continue home meds (3) Elevated troponin Status: Acute Problem Text: Continue to monitor troponin Patient denies any chest pain in ER EKG does not show acute ischemic changes Echo stat (4) Chest pain Status: Resolved Problem Text: see above (5) CAD (coronary artery disease) Status: Chronic Problem Text: Carvedilol, Aspirin, Atorvastatin Will continue to monitor troponin Telemetry (6) CHF exacerbation Status: Acute Problem Text: Diastolic CHF exacerbation Patient [place] [address] Cardiac diet Lasix IV twice a day I's and O's Echo (7) Wounds, multiple Status: Chronic Problem Text: Patient has multiple left leg wounds in different stage Appreciate/agree with [employer] redevelopment specialist consult Plan / VTE VTE Prophylaxis Ordered?: Yes CHACE ZARATE DO Jan 22, 2021 14:21
[2021-01-22 15:00] VITALS: BP 103/70
--- NOTE | 2021-01-22 15:08 | REP ---
INDICATION: pulmonary emboli. COMPARISON: 05/30/2020. TECHNIQUE: Chest CT with IV contrast, CT angiography. FINDINGS: There are multiple emboli in the right lower lobe pulmonary artery extending into the segmental arteries of the anterior, posterior and medial basilar segments. No other pulmonary emboli are identified. There is a large right pleural effusion as an interval change. There is dependent atelectasis posteriorly in the lingula along the major fissure and posteriorly in the left lower lobe. The aorta is not opacified as a consequence of scan timing with the contrast bolus. The cardiac size is enlarged. There is a mitral valve replacement. No pericardial effusion. The visualized upper abdominal contents are grossly unremarkable. IMPRESSION: Multiple emboli to the in the right lower lobe pulmonary artery extending into the anterior, posterior and medial basilar segment branches. Large right pleural effusion. Dependent atelectasis in the left upper lobe and left lower lobe. Cardiomegaly. Mitral valve replacement. <Electronically signed by Lukas Shields > 01/22/21 [id number]
[2021-01-22 16:00] VITALS: O2SAT 94
--- NOTE | 2021-01-22 16:56 | REP ---
INDICATION: dvt COMPARISON: None. TECHNIQUE: Real time compression and duplex Doppler interrogation of the bilateral lower extremity deep venous system is performed. FINDINGS: Bilaterally, the common femoral, superficial femoral and popliteal veins are fully compressible with transducer pressure and demonstrate normal spontaneous and phasic flow, without evidence of deep venous thrombosis. IMPRESSION: No evidence of deep venous thrombosis of the bilateral lower extremity femoral popliteal venous system. <Electronically signed by Lukas Caraballo > 01/22/21 0242
[2021-01-22] MEDS ORDERED: FUROSEMIDE 40MG/4ML VIAL (J1940) IV SCH (17:00)
[2021-01-22 18:00] VITALS: O2SAT 92
[2021-01-22 20:00] VITALS: BP 101/64; O2SAT 96
[2021-01-22] MEDS: CARVedilol 3.125 MG TAB PO SCH (21:00)
[2021-01-22] MEDS ORDERED: ATORVASTATIN 20 MG TAB PO SCH (21:00)
--- NOTE | 2021-01-22 21:08 | ECGEPIP ---
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
[2021-01-22] MEDS: SENOKOT S TAB PO SCH (21:16)
[2021-01-23] VITALS (8 sets, daily range): BP systolic 105–114; BP diastolic 60–69; O2SAT 91–99
[2021-01-23 07:23] LABS: HEMATOCRIT 38.9 % (42.0-52.0); HEMOGLOBIN 12.4 g/dl (13.5-17.5); MEAN CORPUSCULAR HEMOGLOBIN 31.4 pg (27.0-33.0); MEAN CORPUSCULAR HGB CONC 31.9 g/dl (32.0-36.5); MEAN CORPUSCULAR VOLUME 98.5 fl (80.0-96.0); PLATELET COUNT, AUTOMATED 239 10^3/uL (150-450); RED BLOOD COUNT 3.95 10^6/uL (4.30-6.10); WHITE BLOOD COUNT 5.8 10^3/uL (4.0-10.0)
[2021-01-23 07:48] LABS: ALBUMIN 2.9 GM/DL (3.2-5.2); ALT/SGPT 18 U/L (12-78); BLOOD UREA NITROGEN 28 MG/DL (7-18); CALCIUM LEVEL 8.7 MG/DL (8.8-10.2); CARBON DIOXIDE LEVEL 26 MEQ/L (21-32); CHLORIDE LEVEL 103 MEQ/L (98-107); CREATININE FOR GFR 1.08 MG/DL (0.70-1.30); GLOMERULAR FILTRATION RATE > 60.0 (>35); GLUCOSE, FASTING 79 MG/DL (70-100); MAGNESIUM LEVEL 2.1 MG/DL (1.8-2.4); POTASSIUM SERUM 4.2 MEQ/L (3.5-5.1); SODIUM LEVEL 136 MEQ/L (136-145); TOTAL PROTEIN 6.7 GM/DL (6.4-8.2)
[2021-01-23] MEDS ORDERED: SCOPOLAMINE 1MG TRANSDERMAL PATCH TOP PRN (08:30)
[2021-01-23] MEDS ORDERED: FLEET ENEMA PR PRN (08:30)
[2021-01-23] MEDS ORDERED: MORPHINE 10MG/0.5ML ORAL CONCENTRATE SOLUTION U/D SL PRN (08:30)
[2021-01-23] MEDS ORDERED: HYOSCYAMINE SULFATE 0.125 MG SUBL TABLET PO PRN (08:30)
[2021-01-23] MEDS ORDERED: ONDANSETRON 4 MG ORAL DISINTEGRATING TAB PO PRN (08:30)
[2021-01-23] MEDS: SPIRONOLACTONE 25 MG TAB PO SCH (08:38)
[2021-01-23] MEDS: CARVedilol 3.125 MG TAB PO SCH ×2 (08:42→20:03)
[2021-01-23] MEDS: ASPIRIN 81MG ENTERIC TABLET PO SCH (08:43)
[2021-01-23] MEDS: FINASTERIDE 5 MG TAB PO SCH (08:43)
[2021-01-23] MEDS: TAMSULOSIN 0.4 MG CAP PO SCH (08:44)
[2021-01-23] MEDS: ISOSORBIDE MON. (IMDUR) 30 MG XR TAB PO SCH (08:44)
[2021-01-23] MEDS: COLESEVELAM 625 MG TAB (WELCHOL) PO SCH ×2 (08:44→20:03)
[2021-01-23] MEDS: OMEPRAZOLE 20 MG CAP PO SCH (08:44)
[2021-01-23] MEDS: DULoxetine 20 MG CAP (CYMBALTA) PO SCH (08:44)
[2021-01-23] MEDS ORDERED: ENOXAPARIN 40MG/0.4ML SYRINGE (J1650 PER 10MG) SC SCH (09:00)
[2021-01-23] MEDS: TORSEMIDE 10 MG TABLET PO SCH (11:03)
--- NOTE | 2021-01-23 12:49 | IPNPDOC ---
Text Note Date of Service The patient was seen on 01/23/21. NOTE Subjective: I had discussion with his daughter Janette who is a power of assistant city attorney about current situation with pulmonary emboli, pleural effusion and previous history of hemorrhagic stroke. According to family wishes patient was transferred to comfort measures only Objective: GENERAL APPEARANCE: Ill looking male HEENT: no scleral icterus, plus JVD, EOMI CARDIOVASCULAR: S1S2 LUNGS: Diminished lung sounds bilaterally ABDOMEN: soft & not tender w palpitation MUSCULOSKELETAL: no cyanosis, no swelling INTEGUMENT: Patient has multiple left leg wounds in different stage NEUROLOGICAL: cranial nerve function from 2-12 intact intact, follows commands, speech not dysarthric Patient is 85 years old male with history of dementia who cannot provide history, coronary artery diseases, status post CABG, chronic CHF with preserved ejection fraction, chronic kidney diseases stage III was transferred to the hospital from [facility]. According to the staff patient complained of chest pain for past 4 days, substernal, 5 out of 7, intermittent partially alleviated with nitroglycerin. Also patient was tested positive for COVID 19 in the morning in [facility]. Patient did not have cough or sputum production. In ER patient was found normal oxygen saturation, blood gas pH 7.4, PCO2 28, PO2 68. During ambulation his pulse ox dropped to 86 and then in the rest his pulse ox was 96%. Labs pertinent for no leukocytosis, hemoglobin 12.2, troponin 0.2, d- dimer showed > 4000. X-ray showed the mild interstitial coarsening in the right lung is similar to 12/13/2020. However, there is a new patchy infiltrate in the left mid lung as an interval change. Cardiomegaly, sternotomy wires and 2 cardiac valve replacements are all unchanged. Problems (1) Pneumonia due to COVID-19 virus Status: Acute Problem Text: Patient oxygen saturation 96% on the rest X-ray showed the mild interstitial coarsening in the right lung is similar to 12/13/2020. However, there is a new patchy infiltrate in the left mid lung as an interval change. Of note patient received 2 shots of Covid vaccination, last vaccine dose was more than to 2 weeks ago. There is concern for viral PNA despite completed vaccination. Also differential diagnosis includes PE given d-dimer>4000. I ordered CTA, but it would be limited study due to left-sided body contracture I ordered Echo STAT Doppler ultrasound of both legs to exclude DVT Patient has normal oxygen saturation on the room air on the rest. I will hold IV Remdesevir and Iv dexamethasone for now I'm hesitant to start full dose anticoagulation therapy due to previous 2 hemorrhagic strokes: Right parietal lobe and subarachnoid 2000, right frontal intraparenchymal hemorrhage 2011 s/p right craniotomy I discussed with his daughter the current situation with possible pulmonary emboli I explained the risk and benefits of anticoagulation in the light of previous 2 hemorrhagic strokes His daughter Janette Gonzales [phone] asked me to postpone full dose of anticoagulation CTA showed Multiple emboli to the in the right lower lobe pulmonary artery e xtending into the anterior, posterior and medial basilar segment branches. Large right pleural effusion. Dependent atelectasis in the left upper lobe and left lower lobe. Cardiomegaly. Mitral valve replacement. According to family wishes patient was transferred to [facility] (2) Dementia Continue home meds (3) Elevated troponin (4) Chest pain Resolved (5) CAD (coronary artery disease) (6) CHF exacerbation (7) Wounds, multiple Patient has multiple left leg wounds in different stage Appreciate/agree with medical insurance claims specialist consult Pleural effusion/pulmonary emboli/sepsis Blood culture came back positive for gram-positive cocci in clusters Patient developed large pleural effusion most likely secondary to diastolic CHF exacerbation in top of pulmonary embolism Will provide comfort measures only I will start doxycycline by mouth in order to increase life expectancy VS,Fishbone, I+O VS, Fishbone, I+O Laboratory Tests 01/23/21 06:38 Vital Signs Date Time Temp Pulse Resp B/P (MAP) Pulse Ox O2 Delivery O2 Flow Rate FiO2 01/23/21 09:12 96 Room Air 01/23/21 08:42 94 105/60 01/23/21 08:40 98.6 20 01/23/21 06:05 2.0 I&O- Last 24 Hours up to 6 AM 01/23/21 06:00 Intake Total 120 ml Balance 120 ml CHACE ZARATE DO Jan 23, 2021 12:49
[2021-01-23] MEDS: DOXYCYCLINE HYCLATE 100MG TABLET PO SCH ×2 (14:14→20:03)
[2021-01-23] MEDS: SENOKOT S TAB PO SCH (20:03)
[2021-01-24] MEDS: ISOSORBIDE MON. (IMDUR) 30 MG XR TAB PO SCH (09:00)
[2021-01-24] MEDS: CARVedilol 3.125 MG TAB PO SCH ×2 (09:00→19:32)
[2021-01-24] MEDS: SPIRONOLACTONE 25 MG TAB PO SCH (09:17)
[2021-01-24] MEDS: COLESEVELAM 625 MG TAB (WELCHOL) PO SCH ×2 (09:18→19:32)
[2021-01-24] MEDS: TAMSULOSIN 0.4 MG CAP PO SCH (09:18)
[2021-01-24] MEDS: OMEPRAZOLE 20 MG CAP PO SCH (09:18)
[2021-01-24] MEDS: ASPIRIN 81MG ENTERIC TABLET PO SCH (09:18)
[2021-01-24] MEDS: TORSEMIDE 10 MG TABLET PO SCH (09:18)
[2021-01-24] MEDS: DULoxetine 20 MG CAP (CYMBALTA) PO SCH (09:19)
[2021-01-24] MEDS: DOXYCYCLINE HYCLATE 100MG TABLET PO SCH ×2 (09:19→19:32)
[2021-01-24] MEDS: FINASTERIDE 5 MG TAB PO SCH (09:19)
[2021-01-24] MEDS: LORazepam 1 MG TAB PO PRN ×2 (18:02→23:52)
[2021-01-24] MEDS: SENOKOT S TAB PO SCH (19:33)
[2021-01-25] MEDS: CARVedilol 3.125 MG TAB PO SCH ×2 (09:00→20:31)
[2021-01-25] MEDS: TAMSULOSIN 0.4 MG CAP PO SCH (09:04)
[2021-01-25] MEDS: ISOSORBIDE MON. (IMDUR) 30 MG XR TAB PO SCH (09:04)
[2021-01-25] MEDS: DOXYCYCLINE HYCLATE 100MG TABLET PO SCH ×2 (09:04→20:31)
[2021-01-25] MEDS: OMEPRAZOLE 20 MG CAP PO SCH (09:04)
[2021-01-25] MEDS: TORSEMIDE 20 MG TAB PO SCH (09:05)
[2021-01-25] MEDS: COLESEVELAM 625 MG TAB (WELCHOL) PO SCH ×2 (09:05→20:31)
[2021-01-25] MEDS: FINASTERIDE 5 MG TAB PO SCH (09:05)
[2021-01-25] MEDS: SPIRONOLACTONE 25 MG TAB PO SCH (09:05)
[2021-01-25] MEDS: ASPIRIN 81MG ENTERIC TABLET PO SCH (09:05)
[2021-01-25] MEDS: DULoxetine 20 MG CAP (CYMBALTA) PO SCH (09:05)
[2021-01-25 10:10] VITALS: BP 106/58
--- NOTE | 2021-01-25 10:56 | ECHO ---
DATE OF PROCEDURE: 01/22/2021 Age: 85 Gender: Male REFERRING PHYSICIAN: Isiah Santos DO PATIENT LOCATION: Room 4101 REASON FOR STUDY: Congestive heart failure (CHF), systolic, acute on chronic. 2D MEASUREMENTS: IVS 1.2 cm LV 5.0 cm LVPW 1.2 cm LA 4.9 cm Aorta 3.6 cm RV 4.2 cm IVC 2.4 cm DOPPLER MEASUREMENT Maximum tricuspid valve velocity 3.1 m/s 2D COMMENTS: 1. Technically limited study due to poor acoustic window secondary to body habitus. 2. The left ventricular size is normal, as well as left ventricular wall thickness, but with a severely depressed global left ventricular systolic function. There was diffuse global hypokinesis. The estimated left ventricular systolic ejection fraction is 20%. 3. Mildly enlarged left atrium. The right atrium and the right ventricle also appear to be mildly enlarged. 4. The atrial septum did not reveal any defect or shunt. 5. Normal aortic root. 6. No significant pericardial effusion detected. 7. Mildly calcified aortic valve with normal leaflet excursion. Moderately calcified mitral annulus with normal anterior mitral valve leaflet motion. Could not rule out underlying mitral valve prolapse. Normal tricuspid valve. The pulmonic valve and proximal pulmonary artery branches were not well visualized. 8. The inferior vena cava is dilated, central venous pressure is most likely elevated. IMPRESSION: 1. Severe global left ventricular systolic dysfunction with global hypokinesis. 2. Aortic valve sclerosis with mild aortic regurgitation, but no aortic stenosis. 3. Mitral annular calcification with trace mitral regurgitation. 4. Moderate tricuspid regurgitation with moderate pulmonary hypertension. 5. There are features of elevated central venous pressure. The inferior vena cava is mildly enlarged. MTDD
[2021-01-25] MEDS ORDERED: MORPHINE 10MG/0.5ML ORAL CONCENTRATE SOLUTION U/D SL SCH (15:00)
[2021-01-25] MEDS: SCOPOLAMINE 1MG TRANSDERMAL PATCH TOP SCH (15:06)
[2021-01-25] MEDS: LORazepam 1 MG TAB PO SCH ×3 (15:06→20:31)
[2021-01-25] MEDS: ONDANSETRON 4 MG ORAL DISINTEGRATING TAB PO SCH (17:56)
[2021-01-25] MEDS: MORPHINE 10MG/0.5ML ORAL CONCENTRATE SOLUTION U/D SL SCH ×3 (17:56→23:06)
[2021-01-25] MEDS: SENOKOT S TAB PO SCH (20:31)
[2021-01-26] MEDS: LORazepam 1 MG TAB PO SCH ×6 (01:00→20:56)
[2021-01-26] MEDS: ONDANSETRON 4 MG ORAL DISINTEGRATING TAB PO SCH ×4 (06:00→18:00)
[2021-01-26] MEDS: DULoxetine 20 MG CAP (CYMBALTA) PO SCH (07:17)
[2021-01-26] MEDS: CARVedilol 3.125 MG TAB PO SCH ×2 (07:17→20:55)
[2021-01-26] MEDS: TORSEMIDE 20 MG TAB PO SCH (07:17)
[2021-01-26] MEDS: SPIRONOLACTONE 25 MG TAB PO SCH (07:17)
[2021-01-26] MEDS: ASPIRIN 81MG ENTERIC TABLET PO SCH (07:17)
[2021-01-26] MEDS: FINASTERIDE 5 MG TAB PO SCH (07:18)
[2021-01-26] MEDS: COLESEVELAM 625 MG TAB (WELCHOL) PO SCH ×2 (07:18→20:55)
[2021-01-26] MEDS: DOXYCYCLINE HYCLATE 100MG TABLET PO SCH ×2 (07:18→20:55)
[2021-01-26] MEDS: OMEPRAZOLE 20 MG CAP PO SCH (07:18)
[2021-01-26] MEDS: TAMSULOSIN 0.4 MG CAP PO SCH (07:18)
[2021-01-26] MEDS: ISOSORBIDE MON. (IMDUR) 30 MG XR TAB PO SCH (07:18)
[2021-01-26] MEDS: MORPHINE 10MG/0.5ML ORAL CONCENTRATE SOLUTION U/D SL SCH ×4 (09:56→21:15)
[2021-01-26] MEDS: SENOKOT S TAB PO SCH (20:55)
[2021-01-27] MEDS: LORazepam 1 MG TAB PO SCH ×6 (01:00→21:32)
[2021-01-27] MEDS ORDERED: MORPHINE 2 MG/ML 1ML VIAL (J2270) IV ONE (03:00)
[2021-01-27] MEDS ORDERED: MORPHINE 10MG/0.5ML ORAL CONCENTRATE SOLUTION U/D SL ONE (03:10)
[2021-01-27] MEDS: ONDANSETRON 4 MG ORAL DISINTEGRATING TAB PO SCH ×4 (06:00→17:27)
[2021-01-27] MEDS: SPIRONOLACTONE 25 MG TAB PO SCH (08:00)
[2021-01-27] MEDS: TAMSULOSIN 0.4 MG CAP PO SCH (08:01)
[2021-01-27] MEDS: OMEPRAZOLE 20 MG CAP PO SCH (08:01)
[2021-01-27] MEDS: DULoxetine 20 MG CAP (CYMBALTA) PO SCH (08:01)
[2021-01-27] MEDS: CARVedilol 3.125 MG TAB PO SCH ×2 (08:01→20:41)
[2021-01-27] MEDS: ASPIRIN 81MG ENTERIC TABLET PO SCH (08:01)
[2021-01-27] MEDS: ISOSORBIDE MON. (IMDUR) 30 MG XR TAB PO SCH (08:01)
[2021-01-27] MEDS: TORSEMIDE 20 MG TAB PO SCH (08:01)
[2021-01-27] MEDS: FINASTERIDE 5 MG TAB PO SCH (08:02)
[2021-01-27] MEDS: COLESEVELAM 625 MG TAB (WELCHOL) PO SCH ×2 (08:02→20:41)
[2021-01-27] MEDS: DOXYCYCLINE HYCLATE 100MG TABLET PO SCH ×2 (08:02→20:41)
[2021-01-27] MEDS: MORPHINE 10MG/0.5ML ORAL CONCENTRATE SOLUTION U/D SL SCH ×4 (09:47→23:59)
[2021-01-27] MEDS: SENOKOT S TAB PO SCH (20:41)
[2021-01-28] MEDS: LORazepam 1 MG TAB PO SCH ×6 (00:59→20:09)
[2021-01-28] MEDS: MORPHINE 10MG/0.5ML ORAL CONCENTRATE SOLUTION U/D SL SCH ×3 (05:38→17:40)
[2021-01-28] MEDS: ONDANSETRON 4 MG ORAL DISINTEGRATING TAB PO SCH ×4 (05:39→17:34)
[2021-01-28] MEDS: SPIRONOLACTONE 25 MG TAB PO SCH (08:47)
[2021-01-28] MEDS: CARVedilol 3.125 MG TAB PO SCH ×2 (08:47→20:10)
[2021-01-28] MEDS: DULoxetine 20 MG CAP (CYMBALTA) PO SCH (08:47)
[2021-01-28] MEDS: TORSEMIDE 20 MG TAB PO SCH (08:48)
[2021-01-28] MEDS: FINASTERIDE 5 MG TAB PO SCH (08:48)
[2021-01-28] MEDS: DOXYCYCLINE HYCLATE 100MG TABLET PO SCH ×2 (08:48→20:10)
[2021-01-28] MEDS: ASPIRIN 81MG ENTERIC TABLET PO SCH (08:48)
[2021-01-28] MEDS: OMEPRAZOLE 20 MG CAP PO SCH (08:48)
[2021-01-28] MEDS: ISOSORBIDE MON. (IMDUR) 30 MG XR TAB PO SCH (08:48)
[2021-01-28] MEDS: TAMSULOSIN 0.4 MG CAP PO SCH (08:48)
[2021-01-28] MEDS: COLESEVELAM 625 MG TAB (WELCHOL) PO SCH ×2 (08:48→20:10)
[2021-01-28] MEDS: SCOPOLAMINE 1MG TRANSDERMAL PATCH TOP SCH (08:54)
[2021-01-28] MEDS: SENOKOT S TAB PO SCH (20:10)
[2021-01-29] MEDS: LORazepam 1 MG TAB PO SCH ×2 (00:16→06:11)
[2021-01-29] MEDS: MORPHINE 10MG/0.5ML ORAL CONCENTRATE SOLUTION U/D SL SCH ×2 (00:16→06:11)
[2021-01-29] MEDS: ONDANSETRON 4 MG ORAL DISINTEGRATING TAB PO SCH ×2 (06:00)
[2021-01-29 09:00] VITALS: BP 110/56
[2021-01-29] MEDS: COLESEVELAM 625 MG TAB (WELCHOL) PO SCH (09:00)
[2021-01-29] MEDS: OMEPRAZOLE 20 MG CAP PO SCH (09:00)
[2021-01-29] MEDS: DULoxetine 20 MG CAP (CYMBALTA) PO SCH (09:00)
[2021-01-29] MEDS: CARVedilol 3.125 MG TAB PO SCH (09:00)
[2021-01-29] MEDS: FINASTERIDE 5 MG TAB PO SCH (09:00)
[2021-01-29] MEDS: ISOSORBIDE MON. (IMDUR) 30 MG XR TAB PO SCH (09:00)
[2021-01-29] MEDS: TAMSULOSIN 0.4 MG CAP PO SCH (09:00)
[2021-01-29] MEDS: SPIRONOLACTONE 25 MG TAB PO SCH (09:00)
[2021-01-29] MEDS: ASPIRIN 81MG ENTERIC TABLET PO SCH (09:00)
[2021-01-29] MEDS: DOXYCYCLINE HYCLATE 100MG TABLET PO SCH (09:00)
[2021-01-29] MEDS: TORSEMIDE 20 MG TAB PO SCH (09:00)
--- NOTE | 2021-01-29 14:18 | DS.PDOC ---
Discharge Summary General Date of Admission Jan 22, 2021 at 12:54 Date of Discharge 01/29/21 Discharge Summary PROCEDURES PERFORMED DURING STAY: [None]. ADMITTING DIAGNOSES: Pneumonia due to COVID-19 virus Dementia Elevated troponin Chest pain CAD (coronary artery disease CHF exacerbation Wounds, multiple Pleural effusion/pulmonary emboli/sepsis DISCHARGE DIAGNOSES: Pneumonia due to COVID-19 virus Dementia Elevated troponin Chest pain CAD (coronary artery disease CHF exacerbation Wounds, multiple Pleural effusion/pulmonary emboli/sepsis COMPLICATIONS/CHIEF COMPLAINT: Dementia Elevated Troponin Pneumonia Due To Covid. HISTORY OF PRESENT ILLNESS:Patient is 85 years old male with history of dementia who cannot provide history, coronary artery diseases, status post CABG, chronic CHF with preserved ejection fraction, chronic kidney diseases stage III was transferred to the hospital from [facility]. According to the staff patient complained of chest pain for past 4 days, substernal, 5 out of 7, intermittent partially alleviated with nitroglycerin. Also patient was tested positive for COVID 19 in the morning in [facility]. Patient did not have cough or sputum production. In ER patient was found normal oxygen saturation, blood gas pH 7.4, PCO2 28, PO2 68. During ambulation his pulse ox dropped to 86 and then in the rest his pulse ox was 96%. Labs pertinent for no leukocytosis, hemoglobin 12.2, troponin 0.2, d-dimer showed > 4000. X-ray showed the mild interstitial coarsening in the right lung is similar to 12/13/2020. However, there is a new patchy infiltrate in the left mid lung as an interval change. Car diomegaly, sternotomy wires and 2 cardiac valve replacements are all unchanged. HOSPITAL COURSE: According to family wishes patient was transferred to comfort measures only. Patient today at 10.03 AM from cardiorespiratory arrest DISCHARGE MEDICATIONS: Please see below. ALLERGIES: Please see below. PHYSICAL EXAMINATION ON DISCHARGE: VITAL SIGNS: Please see below. GENERAL: HEENT: NECK: CARDIOVASCULAR EXAMINATION: RESPIRATORY EXAMINATION: ABDOMINAL EXAMINATION: EXTREMITIES: SKIN: NEUROLOGICAL EXAMINATION: PSYCHIATRIC EXAMINATION: LABORATORY DATA: Please see below. IMAGING: PROGNOSIS: ACTIVITY: [As tolerated]. DIET: DISCHARGE PLAN: DISPOSITION: 20 . DISCHARGE INSTRUCTIONS: 1. . ITEMS TO FOLLOWUP ON ON OUTPATIENT: 1. . DISCHARGE CONDITION: [Stable]. TIME SPENT ON DISCHARGE: Greater than minutes. Vital Signs/I&Os Vital Signs Date Time Temp Pulse Resp B/P (MAP) Pulse Ox O2 Delivery O2 Flow Rate FiO2 01/29/21 09:00 72 110/56 01/26/21 17:13 20 01/24/21 21:07 94 Room Air 01/24/21 09:00 2.0 01/23/21 08:40 98.6 I&O- Last 24 Hours up to 6 AM 01/29/21 06:00 Intake Total 0 ml Balance 0 ml Microbiology Microbiology 01/22/21 Blood Culture - Final, Complete Staphylococcus Simulans 01/22/21 Blood Culture - Final, Complete Staphylococcus Epidermidis Discharge Medications Scheduled Acetaminophen (Acetaminophen) 325 Mg Tablet, 650 MG PO TID, (Reported) Arginine/Glutamine/Calcium Bmb (Tim Packet) 1 Each Powd.pack, 1.5 GM PO BID, (Reported) TAKES AT 0800 AND 1200 Aspirin (Aspirin EC) 81 Mg Tablet.dr, 81 MG PO DAILY, (Reported) Atorvastatin Calcium (Atorvastatin Calcium) 40 Mg Tablet, 40 MG PO QHS, (Reported) Carvedilol (Carvedilol) 3.125 Mg Tablet, 3.125 MG PO BID, (Reported) Colesevelam Hydrochloride (Welchol) 625 Mg Tablet, 625 MG PO BID, (Reported) Duloxetine Hcl (Duloxetine HCl) 20 Mg Capsule.dr, 20 MG PO DAILY, (Reported) Finasteride (Finasteride) 5 Mg Tab, 5 MG PO DAILY, (Reported) Furosemide (Furosemide) 40 Mg Tab, 40 MG PO DAILY, (Reported) Isosorbide Mononitrate (Isosorbide Mononitrate ER) 30 Mg Tab, 30 MG PO DAILY, (Reported) Lactose-Reduced Food (Ensure Enlive) 237 Ml Liquid, 237 ML PO QHS, (Reported) Omeprazole (Omeprazole) 40 Mg Capsule.dr, 40 MG PO DAILY, (Reported) TAKES AT 1400 Sennosides/Docusate Sodium (Senna-S Tablet) 1 Each Tablet, 2 TAB PO QHS, (Reported) Spironolactone (Spironolactone) 25 Mg Tab, 25 MG PO DAILY, (Reported) Tamsulosin Hcl (Tamsulosin HCl) 0.4 Mg Capsule, 0.4 MG PO DAILY, (Reported) Scheduled PRN Acetaminophen (Tylenol) 325 Mg Tablet, 650 MG PO Q4H PRN for PAIN, (Reported) Bisacodyl (Bisacodyl) 10 Mg Supp.rect, 10 MG AR DAILY PRN for BOWEL CARE, (Reported) Magnesium Hydroxide (Milk of Magnesia) 400 Mg/5 Ml Oral.susp, 30 ML PO DAILY PRN for BOWEL CARE, (Reported) Sodium Phosphate,[place]-Dibasic (Fleet Enema) 133 Ml Enema, 1 SHYANN AR DAILY PRN for BOWEL CARE, (Reported) Allergies Coded Allergies: lovastatin (Verified Allergy, Intermediate, hives, 05/01/19) CHACE ZARATE DO Jan 29, 2021 14:17
== END 2021-01-29 09:52 | disposition expired | DRG 871 ==
LOC: M ED 09:17 → EDSEX 09:17 → EDBD 09:17 → M ED INP 12:54 → ENRESERV 13:12 → M 4MAIN 15:34
PROVIDERS: ADMIT Internal Medicine; ATTEND Internal Medicine
DX: A41.9 Sepsis, unspecified organism (principal); J12.82 Pneumonia due to coronavirus disease 2019; I50.33 Acute on chronic diastolic (congestive) heart failure; I26.99 Other pulmonary embolism without acute cor pulmonale; U07.1 COVID-19; I48.20 Chronic atrial fibrillation, unspecified; I13.0 Hypertensive heart and chronic kidney disease with heart failure and stage 1 through stage 4 chronic kidney disease, or unspecified chronic kidney disease; I71.4 Abdominal aortic aneurysm, without rupture; N18.30 Chronic kidney disease, stage 3 unspecified; Z51.5 Encounter for palliative care; Z66 Do not resuscitate; G62.9 Polyneuropathy, unspecified; L89.890 Pressure ulcer of other site, unstageable; R53.81 Other malaise; F03.90 Unspecified dementia, unspecified severity, without behavioral disturbance, psychotic disturbance, mood disturbance, and anxiety; L89.626 Pressure-induced deep tissue damage of left heel; I25.10 Atherosclerotic heart disease of native coronary artery without angina pectoris; Z95.1 Presence of aortocoronary bypass graft; Z95.3 Presence of xenogenic heart valve; Z87.891 Personal history of nicotine dependence

== ENCOUNTER → 2021-01-22 | Outpatient (REF) | payer MEDICARE, MEDICAID ==
[2021-01-22 09:27] LABS: RSV AMPLIFICATION NEGATIVE (NEGATIVE)
== END ==
PROVIDERS: ATTEND Internal Medicine
DX: Z11.52 Encounter for screening for COVID-19 (principal)